=== PATIENT | female | born 1965 | race Caucasian/White ===

== ENCOUNTER 2017-12-03 11:34 | Observation (INO) | payer MEDICARE, MEDICAID, SELFPAY ==
[2017-12-03] VITALS (10 sets, daily range): BP systolic 104–118; BP diastolic 44–69; PULSE 70–81; RESP 14–20; TEMP 36.8–36.9; O2SAT 95–99; BMI 40.5
--- NOTE | 2017-12-03 11:58 | EKG12_ITS ---
Test Reason : CP Blood Pressure : / mmHG Vent. Rate : 078 BPM Atrial Rate : 078 BPM P-R Int : 156 ms QRS Dur : 078 ms QT Int : 374 ms P-R-T Axes : 045 -12 -07 degrees QTc Int : 426 ms Normal sinus rhythm Low voltage QRS Borderline ECG Confirmed by NOEMÍ BURGOS, HILARIO ([id number]), non linear editor CLIFF TRUONG ([id number]) on 12/07/2017 2:01:36 PM Referred By: JANET Confirmed By:HILARIO DOWD MD
--- NOTE | 2017-12-03 11:58 | RAD_ITS ---
STUDY: X-RAY CHEST REASON FOR EXAM: Female, 52 years old. Chest pain TECHNIQUE: Single AP portable view of the chest. COMPARISON: None. FINDINGS: Cardiac monitoring leads overlie the chest. The lungs are clear and expanded. There is no demonstrated pleural abnormality. Normal size heart. Normal mediastinum and shelia. Normal visualized pulmonary arteries. Normal visualized aortic arch and descending thoracic aorta. Normal visualized thoracic spine. Normal visualized ribs, clavicles, and shoulders. There is no demonstrated abnormality of the visualized soft tissue structures of the upper abdomen. RAD/Chest 1 View (Portable) IMPRESSION: Normal x-ray examination of the chest. Electronically Signed: Adi Barksdale DO at 12:33 EDT Tel , Service support ,
[2017-12-03] MEDS: 0.9% Normal Saline 1,000 ML 150 ML IV (12:25)
[2017-12-03 12:27] LABS: Absolute Lymphocyte Count 1.25 X10^3/ul (0.83-4.51); Absolute Neutrophil Count 5.7 X10^3/uL (2.0-7.7); Basophil# 0.06 X10^3/uL; Basophil% 0.8 % (0-1); Eosinophil# 0.22 X10^3/uL; Eosinophils% 2.8 % (0-5); Hematocrit 37.3 % (37-47); Hemoglobin 12.8 g/dl (12.0-15.0); Lymphocyte # 1.25 X10^3/ul (4.0); Lymphocyte % 16.1 % (19-41); Mean Corp Hgb Conc 34.3 g/gl (32-36); Mean Corpuscular Hgb 32.4 pg (27.0-32.0); Mean Corpuscular Volume 94.4 fL (81-99); Mean Platelet Vol. 10.1 fl (6.2-12.0); Monocyte# 0.51 X10^3/uL; Monocyte% 6.6 % (0-10); Neutrophil # 5.71 X10^3/uL (2.7-7.7); Neutrophil % 73.6 % (47-70); Platelet Count 246 K/mm3 (150-450); RBC Distribution Width CV 12.5 % (11.6-14.6); RBC Distribution Width SD 42.1 fl (35.1-43.9); Red Blood Count 3.95 M/mm3 (4.2-5.4); White Blood Count 7.8 K/mm3 (4.4-11.0)
[2017-12-03 12:30] LABS: POSITIVE COUNT NO; POSITIVE DIFFERENTIAL NO; POSITIVE MORPHOLOGY NO
[2017-12-03 12:41] LABS: Anion Gap 5 (5-15); BUN 13 mg/dL (7-18); BUN/Creat Ratio 12.6 RATIO (10-20); Chloride 104 mmol/L (98-107); Creatinine, Serum 1.03 mg/dL (0.55-1.02); EST Glomerular Filtration Rate 59 mL/min (>60); Est Glom Filt Rate - Afr Amer 72 mL/min (>60); Estimated Creatinine Clearance 47.66 ml/min; Glucose 108 mg/dL (74-106); Potassium 3.9 mmol/L (3.5-5.1); Sodium Level 139 mmol/L (136-145)
--- NOTE | 2017-12-03 13:33 | ED.VISSUMM ---
- ER Visit Summary Date of Service: 12/03/17 Chief Complaint: [Chest pain] History of Present Illness: The patient is a 52 F [presents the emergency department complaint of chest pain that started this morning when she woke up. Patient states that she had a tightness in the squeezing in her left chest. Patient also describes some burning sensation in her esophagus. Patient states that she felt disoriented at times. Patient can find any thing that she could do to ease the pain and she tried drinking milk which did not seem to help too much. Patient denies any radiation of the pain. She denies any shortness of breath or nausea or vomiting. Patient is never had pain quite like this before. She does have a history of hypercholesterolemia. Patient denies recent travel or surgery.] Currently patient states her pain is resolved. Patient states the pain had been somewhat intermittent and last several seconds at a time. Physical Examination: [HEENT-PERRLA, EOMI. Cranial nerves II through XII grossly intact. TMs clear. Mucous membranes moist. No adenopathy. Cardiovascular-regular rate and rhythm without murmur or ectopy Lungs-clear to auscultation, chest wall stable without crepitus or subcu emphysema Abdomen-normoactive bowel sounds, soft, nontender, no rebound or rigidity, no peritoneal signs. Extremities-intact ?4, normal range of motion, normal pulses, atraumatic] Test Results: [EKG obtained on arrival shows sinus rhythm with a ventricular rate of 78 bpm with no acute ST segment changes. CBC with differential obtained showed a white count 7.8, hemoglobin 12.8, hematocrit 37, platelets 246. Chemistries unremarkable. Troponin was less than 0.015. Chest x-ray was normal.] Emergency Department Course and Treatment: Patient received aspirin via EMS. Patient requested something for heartburn and was given a GI cocktail.] Treatment Plan: [Admit for further workup and evaluation of her chest pain] Disposition: [Admit] Impression: [Chest pain-etiology uncertain-rule out acute coronary syndrome] This note was generated with [employer] software. It may contain incorrect words, spelling, and punctuation that were not noted in review of the chart prior to signing ED Disposition - Plan for ED Patient: Chief Complaint: Chest Pain Referrals: Ethan Galvin MD [Primary Care Provider] -
--- NOTE | 2017-12-03 14:04 | HP.PCM_ITS ---
Problem List (1) Hyperlipidemia Status: Chronic (2) GERD (gastroesophageal reflux disease) Status: Chronic (3) Lupus erythematosus Status: Chronic (4) Schizophrenia Status: Chronic (5) Depression Status: Chronic History of Present Illness Date of Admission: 12/03/17 Chief Complaint: Chest pain. The patient is a 52 year old F with past medical history as mentioned above presented to the emergency room because of chest pain. Her symptoms started this morning after she woke up from sleep with retrosternal chest pain, described as squeezing pain, 8 out of 10 in severity, extends to the epigastric region and also to the left side of her chest, associated with burning sensation in the epigastric region as well as nausea, somewhat relieved by nitroglycerin as well as GI cocktail that she received in the ER and without aggravating factors. She does have history of GERD and she mentioned that she had upper endoscopy sometime in the past that revealed the diagnosis. In the emergency department, her vital signs were stable. Routine blood work was unremarkable. Her EKG revealed normal sinus rhythm without evidence of acute ischemic changes. Troponin is negative. Chest x-ray showed no acute findings. She is being admitted for chest pain for evaluation. Past Medical History Past Medical History (Chronic Problems): Chronic Problems Hyperlipidemia (Chronic) GERD (gastroesophageal reflux disease) (Chronic) Lupus erythematosus (Chronic) Schizophrenia (Chronic) Depression (Chronic) Allergies erythromycin base [Erythromycin Base] Allergy (Verified 12/03/17 11:36) Anaphylaxis nitrofurantoin macrocrystalline [From Macrodantin] Allergy (Verified 12/03/17 11 :36) Anaphylaxis Penicillins Allergy (Verified 12/03/17 11:36) Anaphylaxis codeine Adverse Reaction (Verified 12/03/17 11:36) Unknown metronidazole [From Flagyl] Adverse Reaction (Verified 12/03/17 11:36) Other Metronidazole HCl [From Flagyl] Adverse Reaction (Verified 12/03/17 11:36) Other morphine Adverse Reaction (Verified 12/03/17 11:36) Unknown Sulfa (Sulfonamide Antibiotics) Adverse Reaction (Verified 12/03/17 11:36) Unknown Home Medications: Ambulatory Orders Medication Instructions Recorded Hydroxychloroquine [Plaquenil] 300 mg PO DAILY 04/30/13 Benztropine Mesylate 0.5 mg PO BID 12/03/17 Cevimeline HCl [Cevimeline HCl] 30 mg PO TID 12/03/17 Cholecalciferol (VIT D3) [Vitamin 1,000 unit PO DAILY 12/03/17 D] Clonazepam [Klonopin] 0.25 mg PO BID 12/03/17 Docusate Sodium [Stool Softener] 100 mg PO DAILY 12/03/17 Fluoxetine HCl [Fluoxetine HCl] 40 mg PO DAILY 12/03/17 Folic Acid 1 mg PO DAILY 12/03/17 Haloperidol [Haldol] 5 mg PO QHS 12/03/17 Haloperidol [Haloperidol] 1 mg PO QHS 12/03/17 Lurasidone HCl [Latuda] 60 mg PO QHS 12/03/17 Methotrexate [Methotrexate] 15 mg PO QWEEK 12/03/17 Pantoprazole Sodium [Protonix] 40 mg PO DAILY 12/03/17 Pravastatin Sodium [Pravachol] 10 mg PO QHS 12/03/17 Surgical History: noncontributory Psychiatric History: Depression, Schizophrenia Lives: With Family Smoking Status: Former smoker Alcohol: None Drugs: None - *Family History Maternal History Items: Heart Disease, - Paternal History Items: Cancer, - - Rheumatoid arthritis. Review of Systems Constitutional: Denies: Anorexia, Chills, Fever, Weakness Eyes: Denies: Blurred vision, Double vision, Drainage, Redness HEENT: Denies: Difficulty Hearing, Ear Pain, Eye Pain, Nasal Congestion, Sore Throat Cardiovascular: Reports: Chest Pain, Chest Tightness. Denies: Heaviness, Light Headedness, Palpitations, Paroxysmal Noc. Dyspnea, Syncope Respiratory: Denies: Cough, Hemoptysis, Pleuritic Pain, Shortness of Breath, Sputum production, Wheezing Gastrointestinal: Reports: Dyspepsia, Nausea. Denies: Abdominal Pain, Constipation, Diarrhea, Vomiting Genitourinary: Denies: Dysuria, Frequency, Hematuria Musculoskeletal: Denies: Arm Pain, Back Pain, Foot Pain Skin: Denies: Dryness, Rash Neurological: Denies: Balance problems, Blurred vision, Double vision, Change in Speech, Slurred speech, Focal weakness, Headaches, Incoordination Psychiatric: Reports: Depression. Denies: Anxiety Endocrine: Denies: Change in Body Habitus, Polydipsia VTE Information - Inpt Only VTE Present on Admission: No VTE Mechan Device Prophylaxis: None VTE Pharm Prophylaxis ordered?: Yes - Physical Exam General: Alert, Oriented x3, Cooperative, No apparent distress HEENT: Atraumatic, PERRLA, EOMI, Normocephalic Oral: Moist Mucosa, No Gingival or Mucosal Lesions/ Ulcerations Neck: Supple, No JVD, Negative Carotid Bruits, Trachea Midline, Thyroid Normal Size and Texture Lungs: Clear to auscultation, No rhonchi, No wheeze, No rales, Diminished Cardiovascular: Regular rate, Regular Rhythm, Normal S1, Normal S2, No murmurs Abdomen: Bowel Sounds Present, Soft, Non Tender, Non-Distended, No Hepato- splenomegaly Extremities: No clubbing, No cyanosis, No edema Skin: No rashes, No breakdown Lymphatic: No Cervical, Supraclavicular, or Inguinal Adenopathy Neurological: Cranial nerves II-XII grossly intact, Motor Exam 5/5 strength throughout Psych/Mental Status: Normal Affect, Appropriate, Alert and oriented to time, place, person, mood and affect Vital Signs Temp Pulse Resp BP Pulse Ox 98.3 F 74 20 H 118/51 L 97 12/03/17 11:37 12/03/17 13:56 12/03/17 13:56 12/03/17 13:56 12/03/17 13:56 Laboratory Tests 3 12/03/17 12/03/17 Range/Units 12:10 12:10 WBC 7.8 (4.4-11.0) K/mm3 RBC 3.95 L (4.2-5.4) M/mm3 Hgb 12.8 (12.0-15.0) g/dl Hct 37.3 (37-47) % MCV 94.4 (81-99) fL MCH 32.4 H (27.0-32.0) pg MCHC 34.3 (32-36) g/gl RDW 12.5 (11.6-14.6) % RDW Differential 42.1 (35.1-43.9) fl Plt Count 246 (150-450) K/mm3 MPV 10.1 (6.2-12.0) fl Immature Gran % (Auto) 0.100 (0.0-0.9) % Neut % (Auto) 73.6 H (47-70) % Lymph % (Auto) 16.1 L (19-41) % Kemper % (Auto) 6.6 (0-10) % Eos % (Auto) 2.8 (0-5) % Baso % (Auto) 0.8 (0-1) % Absolute Neuts (auto) 5.7 (2.0-7.7) X10^3/uL Absolute Lymphs (auto) 1.25 (0.83-4.51) X10^3/ul Total Counted Not Reportable Sodium 139 (136-145) mmol/L Potassium 3.9 (3.5-5.1) mmol/L Chloride 104 (98-107) mmol/L Carbon Dioxide 30.0 (21.0-32.0) mmol/L Anion Gap 5 (5-15) BUN 13 (7-18) mg/dL Creatinine 1.03 H (0.55-1.02) mg/dL Estim Creat Clear Calc 47.66 ml/min Est GFR (MDRD) Af Amer 72 (>60) mL/min Est GFR (MDRD) Non-Af 59 L (>60) mL/min BUN/Creatinine Ratio 12.6 (10-20) RATIO Glucose 108 H (74-106) mg/dL Calcium 9.0 (8.5-10.1) mg/dL Troponin I < 0.015 (<0.045) ng/mL Clinical Impression(s) from Imaging Studies Chest X-Ray 12/03/17 11:58 IMPRESSION: Normal x-ray examination of the chest. Electronically Signed: Adi Barksdale DO at 12:33 EDT Tel , Service support , Assessment/Plan This is a 52 years old female patient presented to the emergency room because of chest pain and she is being admitted for evaluation. #1 chest pain: Risk factors on the age and hyperlipidemia. EKG revealed no acute ischemic changes. Troponin is negative. Chest x-ray showed no acute findings. Her symptoms could be due to GERD. She had significant history of GERD, had upper EGD in the past. Plan: Admit to PCU for observation, cardiac monitoring, serial cardiac enzymes, repeat EKG tomorrow morning, nuclear stress test tomorrow if cardiac enzymes are negative, Protonix twice daily, Mylanta as needed, nitroglycerin as needed, IV fluids. #2 lupus erythematosus: Stable, no acute distress. Continue Plaquenil and methotrexate #3 GERD: Start Protonix twice daily, Mylanta as needed as above. #4 hyperlipidemia: Continue statins. #5 depression/schizophrenia: Continue Klonopin, fluoxetine and haloperidol. #6 DVT prophylaxis: Subcu Lovenox. This note was generated with [employer] software. It may contain incorrect words, spelling, and punctuation that were not noted in checking the note before signing. Code Visit OBSV E&M: 37865 Initial observation care L3
--- NOTE | 2017-12-03 15:50 | CM.ED ---
Patient states her CPAP mask is torn and that she needs a new filter, as her current filter is black. Her significant other, Garland, is at bedside. He tells me the patient has had difficulty with [employer] [employer] [facility] [place]. Call placed to [facility]. Monica informed me that the problems have been resolved and the patient is approved for new mask and filter. She requested that the patient contact them for delivery setup. I did provide Monica with patient's [facility] subscriber number, as this was not in their records. Patient and family updated and will contact [employer] for delivery.
[2017-12-03] MEDS: Pantoprazole Sodium 40 MG Tablet PO ×2 (17:07→22:12)
[2017-12-03] MEDS: Hydroxychloroquine 200 MG Tablet PO (17:07)
[2017-12-03] MEDS: Enoxaparin 40 MG/0.4 ML Syringe SC (17:07)
[2017-12-03] MEDS: 0.9% Normal Saline 1,000 ML 100 ML IV (17:22)
[2017-12-03] MEDS: clonazePAM 0.5 MG Tablet PO (22:12)
[2017-12-03] MEDS: Pravastatin 20 MG Tablet 10 MG PO (22:12)
[2017-12-03] MEDS: Benztropine 2 MG Tablet 0.5 MG PO (22:12)
[2017-12-03] MEDS: Haloperidol 1 MG Tablet 4 MG PO (22:12)
[2017-12-04] VITALS (8 sets, daily range): BP systolic 108–127; BP diastolic 45–62; PULSE 66–83; RESP 16–18; TEMP 36.6–37.1; O2SAT 94–98
[2017-12-04] MEDS: Acetaminophen 325 MG Tablet 650 MG PO (02:25)
[2017-12-04] MEDS: Aspirin 81 MG TAB.CHEW PO (05:50)
--- NOTE | 2017-12-04 05:55 | EKG12_ITS ---
Test Reason : AM EKG Blood Pressure : / mmHG Vent. Rate : 076 BPM Atrial Rate : 076 BPM P-R Int : 174 ms QRS Dur : 068 ms QT Int : 390 ms P-R-T Axes : 049 -03 -14 degrees QTc Int : 438 ms Normal sinus rhythm Low voltage QRS Borderline ECG Confirmed by NOEMÍ BURGOS, HILARIO ([id number]), sound editor CLIFF TRUONG ([id number]) on 12/07/2017 3:43:00 PM Referred By: TREVA Confirmed By:HILAROI DOWD MD
[2017-12-04 06:24] LABS: Absolute Lymphocyte Count 2.28 X10^3/ul (0.83-4.51); Absolute Neutrophil Count 3.3 X10^3/uL (2.0-7.7); Basophil# 0.05 X10^3/uL; Basophil% 0.8 % (0-1); Eosinophil# 0.31 X10^3/uL; Eosinophils% 4.8 % (0-5); Hematocrit 36.3 % (37-47); Hemoglobin 12.3 g/dl (12.0-15.0); Lymphocyte # 2.28 X10^3/ul (4.0); Lymphocyte % 35.6 % (19-41); Mean Corp Hgb Conc 33.9 g/gl (32-36); Mean Corpuscular Hgb 32.2 pg (27.0-32.0); Monocyte# 0.45 X10^3/uL; Neutrophil # 3.31 X10^3/uL (2.7-7.7); Neutrophil % 51.6 % (47-70); Platelet Count 223 K/mm3 (150-450); RBC Distribution Width CV 12.5 % (11.6-14.6); RBC Distribution Width SD 41.9 fl (35.1-43.9); Red Blood Count 3.82 M/mm3 (4.2-5.4); White Blood Count 6.4 K/mm3 (4.4-11.0)
[2017-12-04 06:25] LABS: POSITIVE COUNT NO; POSITIVE DIFFERENTIAL NO; POSITIVE MORPHOLOGY NO
[2017-12-04 06:26] LABS: International Normalized Ratio 1.1; Partial Thromboplast Time 28.6 Seconds (24.1-36.2); Prothrombin Time (Protime)PT. 13.8 SECONDS (11.7-14.9)
[2017-12-04 06:42] LABS: Anion Gap 8 (5-15); BUN 14 mg/dL (7-18); BUN/Creat Ratio 14.5 RATIO (10-20); Chloride 104 mmol/L (98-107); Cholesterol 158 mg/dL (200); Creatinine, Serum 0.96 mg/dL (0.55-1.02); EST Glomerular Filtration Rate 64 mL/min (>60); Est Glom Filt Rate - Afr Amer 78 mL/min (>60); Estimated Creatinine Clearance 51.14 ml/min; Glucose 102 mg/dL (74-106); High Density Lipoprotein 34 mg/dL; Potassium 4.3 mmol/L (3.5-5.1); Sodium Level 142 mmol/L (136-145); Triglycerides 160 mg/dL; Very Low Density Lipoprotein 32 mg/dL (5-40)
--- NOTE | 2017-12-04 12:11 | STRESSREP_ITS ---
Stress Test Report Date: 12/04/2017 Procedure: Exercise tolerance test/imaging study Indications: Chest pain Consent: Per the patient Procedure: The patient exercised on a Cole protocol for 4 minutes and 30 seconds completing Stage I and 1 minute 30 seconds of Stage II achieving a peak heart rate of 150 bpm (89 % predicted maximal heart rate) with a peak blood pressure 152/86 mmHg and a peak MET capacity of 6 METs. The baseline ECG demonstrated normal sinus rhythm. The peak exercise ECG demonstrated somatic/motion artifact with no obvious ECG changes. There were no cardiac dysrhythmias pretest, during exercise, or recovery. The functional capacity was considered decreased. There was no complaint of chest discomfort during exercise or recovery. The examination was discontinued secondary to dyspnea. Impression: 1. Technically adequate (percent predicted maximal heart rate greater than 85% ) exercise tolerance test 2. Peak exercise ECG somatic/motion artifact with no obvious ECG changes 3. There were no cardiac dysrhythmias pretest, during exercise, or recovery. 4. Nuclear images pending Myocardial perfusion imaging study: Technique: The patient was injected with 13.5 mCi of technetium 99m Cardiolite and subsequently rest SPECT Cardiolite nuclear imaging was obtained in the horizontal long, vertical long, and short axis views. The patient exercised on a Cole protocol for 4 minutes and 30 seconds completing Stage I and 1 minute 30 seconds of Stage II achieving a peak heart rate of 150 bpm (89 % predicted maximal heart rate) with a peak blood pressure 152/86 mmHg and a peak MET capacity of 6 METs. The patient was injected with 42 mCi of technetium 99m Cardiolite and subsequently stress SPECT Cardiolite nuclear imaging was obtained in the horizontal long, vertical long, and short axis views. A gated Cardiolite study at peak stress was obtained. Interpretation: Rest and stress SPECT Cardiolite nuclear imaging status post realignment, normalization, and attenuation correction, demonstrates the appearance of relative uniform tracer uptake and myocardial perfusion appearing within normal limits. There is end systolic thickening and brightening. The gated Cardiolite study demonstrates myocardial thickening and inward wall motion. The reported LVEF is 93 %. Impression: 1. Rest and stress SPECT Cardiolite nuclear imaging demonstrate relative uniform tracer uptake and myocardial perfusion appearing within normal limits. 2. The gated Cardiolite study reports an LVEF of 93 %. This note was generated with [employer] software. It may contain incorrect words, spelling, and punctuation that were not noted in checking the note before signing.
--- NOTE | 2017-12-04 12:34 | PCM.DC ---
- Discharge Diagnoses Current Active Problems: Current Active and Chronic Problems Hyperlipidemia (Chronic) GERD (gastroesophageal reflux disease) (Chronic) Lupus erythematosus (Chronic) Schizophrenia (Chronic) Depression (Chronic) You will use the following diet at home:: No restrictions Your food should be the consistency of: Regular Discharge Activity: Return to Normal Activity Allergies/Adverse Reactions: Allergies erythromycin base [Erythromycin Base] Allergy (Verified 12/03/17 11:36) Anaphylaxis nitrofurantoin macrocrystalline [From Macrodantin] Allergy (Verified 12/03/17 11:36) Anaphylaxis Penicillins Allergy (Verified 12/03/17 11:36) Anaphylaxis codeine Adverse Reaction (Verified 12/03/17 11:36) Unknown metronidazole [From Flagyl] Adverse Reaction (Verified 12/03/17 11:36) Other Metronidazole HCl [From Flagyl] Adverse Reaction (Verified 12/03/17 11:36) Other morphine Adverse Reaction (Verified 12/03/17 11:36) Unknown Sulfa (Sulfonamide Antibiotics) Adverse Reaction (Verified 12/03/17 11:36) Unknown Medications to take at Discharge Hydroxychloroquine [Plaquenil] 300 mg PO DAILY 04/30/13 Benztropine Mesylate 0.5 mg PO BID 12/03/17 Cevimeline HCl 30 mg PO TID 12/03/17 Cholecalciferol (VIT D3) [Vitamin D3] 1,000 unit PO DAILY 12/03/17 Clonazepam [Klonopin] 0.25 mg PO BID 12/03/17 Docusate Sodium [Stool Softener] 100 mg PO DAILY 12/03/17 Fluoxetine HCl 40 mg PO DAILY 12/03/17 Folic Acid 1 mg PO DAILY 12/03/17 Haloperidol 1 mg PO QHS 12/03/17 Haloperidol [Haldol] 5 mg PO QHS 12/03/17 Lurasidone HCl [Latuda] 60 mg PO QHS 12/03/17 Methotrexate 15 mg PO QWEEK 12/03/17 Pantoprazole Sodium [Protonix] 40 mg PO DAILY 12/03/17 Pravastatin Sodium [Pravachol] 10 mg PO QHS 12/03/17 Primary Care Physician: Ethan Galvin MD [Primary Care Provider] - Test Results: Test results from this visit will be discussed in further detail at your follow-up appointment, if applicable. Proposed Discharge Date: 12/04/17
--- NOTE | 2017-12-04 12:38 | DCINST_ITS ---
- Discharge Diagnoses Current Active Problems: Current Active and Chronic Problems Hyperlipidemia (Chronic) GERD (gastroesophageal reflux disease) (Chronic) Lupus erythematosus (Chronic) Schizophrenia (Chronic) Depression (Chronic) You will use the following diet at home:: No restrictions Your food should be the consistency of: Regular Discharge Activity: Return to Normal Activity Allergies/Adverse Reactions: Allergies erythromycin base [Erythromycin Base] Allergy (Verified 12/03/17 11:36) Anaphylaxis nitrofurantoin macrocrystalline [From Macrodantin] Allergy (Verified 12/03/17 11 :36) Anaphylaxis Penicillins Allergy (Verified 12/03/17 11:36) Anaphylaxis codeine Adverse Reaction (Verified 12/03/17 11:36) Unknown metronidazole [From Flagyl] Adverse Reaction (Verified 12/03/17 11:36) Other Metronidazole HCl [From Flagyl] Adverse Reaction (Verified 12/03/17 11:36) Other morphine Adverse Reaction (Verified 12/03/17 11:36) Unknown Sulfa (Sulfonamide Antibiotics) Adverse Reaction (Verified 12/03/17 11:36) Unknown Medications to take at Discharge Hydroxychloroquine [Plaquenil] 300 mg PO DAILY 04/30/13 Benztropine Mesylate 0.5 mg PO BID 12/03/17 Cevimeline HCl 30 mg PO TID 12/03/17 Cholecalciferol (VIT D3) [Vitamin D3] 1,000 unit PO DAILY 12/03/17 Clonazepam [Klonopin] 0.25 mg PO BID 12/03/17 Docusate Sodium [Stool Softener] 100 mg PO DAILY 12/03/17 Fluoxetine HCl 40 mg PO DAILY 12/03/17 Folic Acid 1 mg PO DAILY 12/03/17 Haloperidol 1 mg PO QHS 12/03/17 Haloperidol [Haldol] 5 mg PO QHS 12/03/17 Lurasidone HCl [Latuda] 60 mg PO QHS 12/03/17 Methotrexate 15 mg PO QWEEK 12/03/17 Pantoprazole Sodium [Protonix] 40 mg PO DAILY 12/03/17 Pravastatin Sodium [Pravachol] 10 mg PO QHS 12/03/17 Primary Care Physician: Ethan Galvin MD [Primary Care Provider] - Test Results: Test results from this visit will be discussed in further detail at your follow- up appointment, if applicable. Proposed Discharge Date: 12/04/17
--- NOTE | 2017-12-04 12:39 | PCM.DC.SUM ---
Discharge Date and Diagnosis - Problem List Patient Problems: Active and Suspected Problems Acute chest pain (Acute) Date of Admission: 12/03/17 Date of Discharge: 12/04/17 - Primary Discharge Diagnosis Active and Suspected Problems Acute chest pain (Acute) - Secondary Discharge Diagnosis Chronic Problems Hyperlipidemia (Chronic) GERD (gastroesophageal reflux disease) (Chronic) Lupus erythematosus (Chronic) Schizophrenia (Chronic) Depression (Chronic) Hospital Course and Treatment Imaging Results: 12/04/17 05:55 Nuclear Stress Test - Tread[facility] [NM] Routine Summary of Care Provided: The patient is a 52 year old F who presented with chest pain. Patient was placed on a monitored bed [place] was ruled out with serial cardiac enzymes. Patient subsequently underwent a nuclear stress test which was negative for stress-induced ischemia. Patient was discharged home instructed to follow-up with the primary care physician for noncardiac workup of her chest discomfort. Discharge Activity: Return to Normal Activity Home Medications: Medications to take at Discharge Hydroxychloroquine [Plaquenil] 300 mg PO DAILY 04/30/13 Benztropine Mesylate 0.5 mg PO BID 12/03/17 Cevimeline HCl 30 mg PO TID 12/03/17 Cholecalciferol (VIT D3) [Vitamin D3] 1,000 unit PO DAILY 12/03/17 Clonazepam [Klonopin] 0.25 mg PO BID 12/03/17 Docusate Sodium [Stool Softener] 100 mg PO DAILY 12/03/17 Fluoxetine HCl 40 mg PO DAILY 12/03/17 Folic Acid 1 mg PO DAILY 12/03/17 Haloperidol 1 mg PO QHS 12/03/17 Haloperidol [Haldol] 5 mg PO QHS 12/03/17 Lurasidone HCl [Latuda] 60 mg PO QHS 12/03/17 Methotrexate 15 mg PO QWEEK 12/03/17 Pantoprazole Sodium [Protonix] 40 mg PO DAILY 12/03/17 Pravastatin Sodium [Pravachol] 10 mg PO QHS 12/03/17 Primary Care Physician: Ethan Galvin MD [Primary Care Provider] - Medical Necessity - Tobacco Use Smoking Status: Former smoker Tobacco Use: Cigarettes Meaningful Use Info Meaningful Use Diagnoses (Choose all that apply): None applicable Code Visit OBSV E&M: 79931 Observation care discharge
--- NOTE | 2017-12-04 12:44 | DS.PCM_ITS ---
Discharge Date and Diagnosis - Problem List Patient Problems: Active and Suspected Problems Acute chest pain (Acute) Date of Admission: 12/03/17 Date of Discharge: 12/04/17 - Primary Discharge Diagnosis Active and Suspected Problems Acute chest pain (Acute) - Secondary Discharge Diagnosis Chronic Problems Hyperlipidemia (Chronic) GERD (gastroesophageal reflux disease) (Chronic) Lupus erythematosus (Chronic) Schizophrenia (Chronic) Depression (Chronic) Hospital Course and Treatment Imaging Results: 12/04/17 05:55 Nuclear Stress Test - Treadmil [NM] Routine Summary of Care Provided: The patient is a 52 year old F who presented with chest pain. Patient was placed on a monitored bed [place] was ruled out with serial cardiac enzymes. Patient subsequently underwent a nuclear stress test which was negative for stress-induced ischemia. Patient was discharged home instructed to follow-up with the primary care physician for noncardiac workup of her chest discomfort. Discharge Activity: Return to Normal Activity Home Medications: Medications to take at Discharge Hydroxychloroquine [Plaquenil] 300 mg PO DAILY 04/30/13 Benztropine Mesylate 0.5 mg PO BID 12/03/17 Cevimeline HCl 30 mg PO TID 12/03/17 Cholecalciferol (VIT D3) [Vitamin D3] 1,000 unit PO DAILY 12/03/17 Clonazepam [Klonopin] 0.25 mg PO BID 12/03/17 Docusate Sodium [Stool Softener] 100 mg PO DAILY 12/03/17 Fluoxetine HCl 40 mg PO DAILY 12/03/17 Folic Acid 1 mg PO DAILY 12/03/17 Haloperidol 1 mg PO QHS 12/03/17 Haloperidol [Haldol] 5 mg PO QHS 12/03/17 Lurasidone HCl [Latuda] 60 mg PO QHS 12/03/17 Methotrexate 15 mg PO QWEEK 12/03/17 Pantoprazole Sodium [Protonix] 40 mg PO DAILY 12/03/17 Pravastatin Sodium [Pravachol] 10 mg PO QHS 12/03/17 Primary Care Physician: Ethan Galvin MD [Primary Care Provider] - Medical Necessity - Tobacco Use Smoking Status: Former smoker Tobacco Use: Cigarettes Meaningful Use Info Meaningful Use Diagnoses (Choose all that apply): None applicable Code Visit OBSV E&M: 84680 Observation care discharge
[2017-12-04] MEDS: Pantoprazole Sodium 40 MG Tablet PO (13:11)
[2017-12-04] MEDS: FLUoxetine 20 MG Capsule 40 MG PO (13:11)
[2017-12-04] MEDS: Docusate Sodium 100 MG Capsule PO (13:12)
[2017-12-04] MEDS: Hydroxychloroquine 200 MG Tablet PO (13:12)
[2017-12-04] MEDS: Benztropine 2 MG Tablet 0.5 MG PO (13:12)
[2017-12-04] MEDS: clonazePAM 0.5 MG Tablet PO (13:17)
== END 2017-12-04 12:35 | disposition home or self-care (01) ==
LOC: ED 12:57 → PCU 13:56
PROVIDERS: Admitting Provider Hospitalist; Emergency Provider Emergency Medicine; Family Provider Internal Medicine; PCP Internal Medicine; Visit Provider Internal Medicine
DX: R07.89 Other chest pain (principal); E78.5 Hyperlipidemia, unspecified; K21.9 Gastro-esophageal reflux disease without esophagitis; Z79.899 Other long term (current) drug therapy; F20.9 Schizophrenia, unspecified; Z87.891 Personal history of nicotine dependence; L93.0 Discoid lupus erythematosus
CPT/HCPCS: 36415; 71045; 78452; 80048; 80061; 84484; 85025; 85610; 85730; 93005; 93017; 96360; 96361; 96372; 99218; 99285; A9500; J7030; A4216; G0378; J2785

== ENCOUNTER 2018-06-19 13:39 | Emergency (ER) | payer MEDICARE, MEDICAID, SELFPAY ==
[2018-06-19 13:40] VITALS: BP 104/91; PULSE 75; RESP 18; TEMP 36.6; O2SAT 96; BMI 43.4
--- NOTE | 2018-06-19 14:01 | ED.VISSUMM ---
- ER Visit Summary Date of Service: 06/19/18 Chief Complaint: [Laceration left long finger] History of Present Illness: The patient is a 53 F [presents to the emergency department after sustaining a laceration 45 minutes ago to her left long finger. Patient states that she was cutting a potato with a mandolin slicer when she accidentally cut her finger. Patient is left-hand dominant. Patient at the on tetanus. Patient states that she ran the finger under cold water but had a hard time stopping the bleeding.] Physical Examination: [HEENT-PERRLA, EOMI. Cranial nerves II through XII grossly intact. TMs clear. Mucous membranes moist. No adenopathy. Cardiovascular-regular rate and rhythm without murmur or ectopy Lungs-clear to auscultation, chest wall stable without crepitus or subcu emphysema Abdomen-normoactive bowel sounds, soft, nontender, no rebound or rigidity, no peritoneal signs. Extremities-intact ?4, normal range of motion, normal pulses, atraumatic. Left long finger-patient has a 1 cm horizontal laceration across the pad of the digit with no active bleeding currently. She is neurovascular intact. Normal sensation.] Test Results: [None indicated] Emergency Department Course and Treatment: I had a discussion with patient regarding treatment options including Steri-Strips versus suturing. Given the small nature of the laceration I felt both options were reasonable. Patient opted not to have the finger sutured but rather do the Steri-Strips which I think is a reasonable option. Patient to follow-up with primary care physician in 3-5 days for wound check.] Treatment Plan: [Follow-up for wound check in 3-5 days.] Disposition: [Discharged home in stable condition] Impression: [Laceration left long finger with Steri-Strip repair] This note was generated with [employer] software. It may contain incorrect words, spelling, and punctuation that were not noted in review of the chart prior to signing ED Disposition - Plan for ED Patient: Referrals: Ethan Galvin MD [Primary Care Provider] -
--- NOTE | 2018-06-19 14:03 | ED.DEP ---
ED Disposition - Plan for ED Patient: Instructions: ED Laceration Ext Sutr Stap Tape Referrals: Ethan Galvin MD [Primary Care Provider] - 3-5 Days
== END 2018-06-19 14:28 | disposition home or self-care (01) ==
LOC: ED 14:25
PROVIDERS: Emergency Provider Emergency Medicine; Family Provider Internal Medicine; PCP Internal Medicine
DX: S61.213A Laceration without foreign body of left middle finger without damage to nail, initial encounter (principal); W26.8XXA Contact with other sharp object(s), not elsewhere classified, initial encounter; Y93.89 Activity, other specified; Y92.9 Unspecified place or not applicable; F20.9 Schizophrenia, unspecified; M32.9 Systemic lupus erythematosus, unspecified; Z79.899 Other long term (current) drug therapy
CPT/HCPCS: 99282

== ENCOUNTER 2019-10-06 19:13 | Emergency (ER) | payer MEDICARE, MEDICAID, SELFPAY ==
[2019-10-06 19:14] VITALS: BP 109/59; PULSE 74; RESP 16; TEMP 36.2; O2SAT 96; BMI 40.6
--- NOTE | 2019-10-06 19:31 | ED.VIS.BACK ---
History of Present Illness Chief Complaint: Back Narrative: Patient presenting for evaluation secondary to back pain. Patient reports that since she has been quarantined at home, she has been doing a lot of work around the house including gardening and cleaning. She reports that that has been associated with some increased back pain. She reports that typically when she bends over she gets a burning type sensation in her back and her buttocks. Patient states however that today she noted that she was starting to get spasms in her back. These will come and go, are not necessarily associated with moving or position change, and are associated with some radiation of pain down her left thigh. Patient denies any bowel or bladder incontinence, she does typically have some mild issues with urine but she has a bladder sling and she states that it is unchanged. No fevers, no unintended weight loss. No recent injections or surgeries or history of IV drug abuse. Patient reports that she took some Tylenol with very minimal relief of her pain. Review of systems otherwise negative. Past Medical History - Allergies and Home Meds Allergies/Adverse Reactions: Allergies erythromycin base [Erythromycin Base] Allergy (Verified 10/06/19 19:16) Anaphylaxis nitrofurantoin macrocrystalline [From Macrodantin] Allergy (Verified 10/06/19 19:16) Anaphylaxis Penicillins Allergy (Verified 10/06/19 19:16) Anaphylaxis codeine Adverse Reaction (Verified 10/06/19 19:16) Unknown metronidazole [From Flagyl] Adverse Reaction (Verified 10/06/19 19:16) Other Metronidazole HCl [From Flagyl] Adverse Reaction (Verified 10/06/19 19:16) Other morphine Adverse Reaction (Verified 10/06/19 19:16) Unknown Sulfa (Sulfonamide Antibiotics) Adverse Reaction (Verified 10/06/19 19:16) Unknown Primary Care Physician: Ethan Galvin MD [Primary Care Provider] - Past Medical History: - - RA Surgical History: noncontributory Lives: Spouse/ Significant Other Smoking Status: Never smoker Alcohol: None Drugs: None - Family History Maternal Family History: Reports: Heart Disease, - Paternal Family History: Reports: Cancer, - - Rheumatoid arthritis. Review of Systems All systems negative except as indicated General: Denies: Chills, Fever, Sweats Eyes: Denies: Visual changes - bilaterally, Diplopia ENT: Denies: Rhinorrhea, Sore throat Cardiovascular: Denies: Chest pain, Palpitations Respiratory: Denies: Dyspnea, Cough, Dyspnea on exertion Gastrointestinal: Denies: Abdominal pain, Nausea, Vomiting, Diarrhea, Melena, Hematochezia Genitourinary: Denies: Dysuria, Hematuria, Frequency Musculoskeletal: Reports: Back pain Skin: Denies: Rash, Wounds Neurological: Denies: Headache, Weakness, Numbness Physical Exam Vital Signs/Narrative: Vital Signs Temp Pulse Resp BP Pulse Ox 10/06/19 19:14 97.2 F L 74 16 109/59 L 96 Inital Vital Signs reviewed: Yes General: Well nourished, Well developed, Obese Head: Normocephalic, Atraumatic Eyes: Perrl, EOMI ENT: Moist mucous membranes, No rhinorrhea Neck: Supple, Nontender Cardiovascular: Regular rate, Regular rhythm, No murmurs, - - 2+ radial pulses bilaterally symmetric. 2+ PT pulses bilaterally symmetric. Respiratory: No distress, CTA bilaterally, Chest nontender Abdomen: Soft, Nontender, Nondistended, Normal bowel sounds. Negative for: Pulsatile mass Back: Normal Inspection, Spinal tenderness - Diffuse lumbar tenderness to palpation, nonlocalizing, Paraspinal Tenderness, Negative SLR - Right, Negative SLR - Left Extremeties: - - 5 out of 5 strength of the hip knee ankle and foot with normal sensation over all dermatomes. 2+ patellar reflexes bilaterally symmetric, 1+ Achilles, negative clonus. Skin: Normal color, No rash Neuro: Alert, Oriented, Normal Strength, Normal Sensation, Normal DTR, Normal Gait Psychological: Normal affect Diagnostic/Tx/Re-eval - Medical Decision Making Patient presented secondary to back pain. She describes this as being intermittent with spasms and potentially an element of some sciatica. She has a reassuring physical exam there is no indication for imaging at this time. Patient is already on methotrexate and hydroxychloroquine for treatment of her rheumatoid arthritis. I believe it is reasonable to treat the patient with a short course of steroids, muscle relaxants, and a protracted course of tramadol for breakthrough pain. She was recommended stretching exercises and follow-up with primary care. ED Disposition - Plan for ED Patient: Disposition: Home or Assisted Living Diagnosis: Back spasm, Sciatica Instructions: ED Spasm Back No Trauma, ED LUMBAR RADICULOPATHY Prescriptions: Prednisone [Deltasone] 40 mg PO DAILY #10 tab Prescription Printed cycloBENZAPRine HCl [Flexeril] 10 mg PO TID PRN #20 tab PRN Reason: Muscle Spasm Prescription Printed traMADol [Ultram] 50 mg PO Q6H PRN PRN 3 Days #12 tab PRN Reason: Pain Prescription Printed Referrals: Ethan Galvin MD [Primary Care Provider] - 3-5 Days if not improving
[2019-10-06] MEDS: traMADol 50 MG Tablet PO (20:19)
[2019-10-06] MEDS: cycloBENZAPRine HCl 10 MG Tablet PO (20:19)
[2019-10-06] MEDS: predniSONE 20 MG Tablet 40 MG PO (20:19)
== END 2019-10-06 20:18 | disposition home or self-care (01) ==
LOC: ED 19:53
PROVIDERS: Emergency Provider Emergency Medicine; PCP Internal Medicine
DX: M62.830 Muscle spasm of back (principal); M54.40 Lumbago with sciatica, unspecified side; M06.9 Rheumatoid arthritis, unspecified; E66.9 Obesity, unspecified; Z68.41 Body mass index [BMI] 40.0-44.9, adult
CPT/HCPCS: 99283

== ENCOUNTER 2020-05-10 08:30 | Outpatient (RCR) | payer MEDICARE, MEDICAID, SELFPAY ==
--- NOTE | 2020-05-10 09:05 | BH.SGPN.GN ---
Behaviors/Verbalizations/Mental Status: [] Eye contact is good. Motor activity is appropriate. Appearance is casual. Speech is Appropriate. Mood is anxious. Affect is congruent. Thoughts are linear and logical. No evidence of psychosis. Client Response/Progress/Benefit: [] Pt spoke when prompted however appeared attentive. This was pt's first day in IOP and she shared a bit of her history stating that she was diagnosed with paranoid schizophrenia and has had a hx of suicide attempts. Shared that she has been struggling recent with intrusive thoughts and dwelling on the past. Group welcomed her to the program and offered some advice for the first day. Pt was receptive. No progress noted as this is pt's first day. Will continue in IOP to prevent decompensation, increase support, increase healthy coping skills, and decrease impact of intrusive thoughts. Narrative Note: []
--- NOTE | 2020-05-10 10:05 | BH.SGPN.GN ---
Behaviors/Verbalizations/Mental Status: []Client alert and oriented, casually dressed and groomed. Eye contact good. Motor activity appropriate. Speech within normal limits. Affect constricted, mood anxious. Thoughts linear, logical, no signs of hallucinations or delusions. Client Response/Progress/Benefit: []Client engaged during session AEB client contributing thoughts at times during discussion and completing worksheet. Connected with discussion on crisis and how coping with external crises by using unhealthy coping skills could result in a personal crisis. Group reflected on the importance of having awareness of personal warning signs in order to prevent reaching crisis point. Group identified potential warning signs for crisis and client completed the personal warning signs worksheet. Client identified personal crisis warning signs to include: problems with memory, difficulty concentrating, and loss of motivation. Client benefited by increasing awareness of what leads to crisis and personal warning signs. Pt's first day in IOP. Pt to continue IOP to increase healthy coping, improve daily functioning and prevent decompensation. Narrative Note: []
--- NOTE | 2020-05-10 11:05 | BH.SGPN.GN ---
Behaviors/Verbalizations/Mental Status: []Client alert and oriented, casually dressed and groomed. Eye contact fair. Motor activity appropriate. Speech within normal limits. Affect constricted. Mood anxious. Thoughts linear, logical, no signs of hallucinations or delusions. Client Response/Progress/Benefit: []Client responded well to discussion as evidenced by client listening attentively to others, however client struggled with creating a crisis prevention plan. Client was able to identify her warning signs for crisis and gained further awareness of earliest warning signs. Client stated she was having a hard time staying focused and concentrating. Client reported this has been a common issue for her which she stated impacts her ability to drive and complete other tasks. Client requested just observing for the crisis prevention worksheet and kits. Client appeared to benefit from listening to peers crisis action plans. First day in IOP. Client to continue IOP tx to increase healthy coping, improve daily functioning and prevent decompensation.
--- NOTE | 2020-05-14 10:10 | BH.SGPN.GN ---
Behaviors/Verbalizations/Mental Status: []Client alert and orient. Appearance casual and appropriately groomed. Speech within normal limits. Motor activity appropriate. Mood depressed, affect constricted. No evidence of delusion or hallucinations.? Client Response/Progress/Benefit: []Client responded well to session, attentive and listening to discussion. Group discussed potential barriers to communication including: yelling, name-calling, unmanaged emotions, facial expressions, and shutting down. Client did not contribute to the discussion, but she was often nodding while peers shared insight. Attentive during psychoeducation on the four communication styles as well as the payoffs and costs of each style. Progress noted in increased insight into personal communication styles and barriers. Client will continue IOP tx to prevent decompensation, improve mood stability, and improve daily functioning. Narrative Note: []
--- NOTE | 2020-05-14 11:15 | BH.SGPN.GN ---
Behaviors/Verbalizations/Mental Status: []Client alert and oriented, casually dressed and appropriately groomed. Eye contact good. Motor activity appropriate. Speech WNL. Affect constricted, mood dysthymic and anxious. Thoughts linear, logical, no signs of hallucinations or delusions. Client Response/Progress/Benefit: []Client mostly passive participant AEB pt only providing input when elicited by therapist, however listened attentively to peers. Attentive during psychoeducation on interpersonal DBT skill AMANDA and client selected a communication skill to practice. Client selected the skill of negotiating because she recognizes it's important to be able to compromise with others. Client seemed to benefit from increasing awareness of healthy strategies to improve communication. Will continue IOP tx to increase healthy coping, improve daily functioning and prevent decompensation. Narrative Note: []
--- NOTE | 2020-05-14 11:44 | BH.MDN ---
Multi-Disciplinary Note - Note 45-min Individual Time Started:: 09:30 Date: 05/14/20 Purpose of session/treatment goals addressed:: The purpose of this session was to gather information on client's current stressors, symptoms, and treatment goals. Another goal was to build rapport and provide psychoeducation. Eye Contact:: Good Motor Activity:: Appropriate Appearance:: Neat Speech:: Rambling, Soft Mood:: Dysthymic Affect:: Congruent Thoughts:: Other, No evidence of hallucinations/delusions noted Staff Interventions:: Therapist used active listening and open-ended questions to explore client's current stressors, symptoms, history, and treatment goals. Therapist used strengths perspective to build rapport and highlight client?s resiliency traits. Therapist provided psychoeducation on depression, distortions, and maintenance cycles. Therapist also explored client's concerns about medication and memory. Client Response:: Client responded well to session, open to meeting with therapist. Client reports feeling depressed and tired this morning. Client shared she struggled to accomplish anything over the weekend due to her depressed mood. Client stated, if it wasn't for my , I wouldn't have made it to group today? as client has been struggling to get out of bed most days. Client connected with maintenance cycles and cognitive distortions. Client stated when she feels depressed, she sees life in a negative perspective. Client able to recognize this leads client to ruminate on the past, assume people do not like her, and believe she is a burden. Receptive to discussion on breaking depressive maintenance cycles. Client stated in the past she used singing and staying busy to cope with depression, but she is currently unable to use those things due to low motivation. Client also worries about her worsening memory issues. Client expressed concern that her memory issues are due to years of taking psychiatric medications or from Lupus. Client has her at home who helps client complete ADLs and drives client. Client will meet with [facility] psychiatrist on Thursday. Risks/Concerns:: Client denies any suicidal ideations, plan, or intent as of 05/14/20. Client reports issues with memory that are concerning to client and impacting client's functioning. Therapist to inform [facility] psychiatrist and staff. Progress Toward Goals/Plan:: Client started IOP at the end of last week, and appears to be responding well. Client endorses a depressed mood, anhedonia, low motivation, fatigue, ruminations, isolative behaviors, and difficulty concentrating. Client also reports delusions that they are watching me whenever she watches the news on TV. No delusions noted during session. Tx goals include getting back to doing things she enjoys, contribute more at home, and be healthier overall. Will continue IOP tx to prevent decompensation, increase use of healthy coping skills, and improve daily functioning. Time Stopped:: 10:10
--- NOTE | 2020-05-14 11:45 | BH.MTP_ITS ---
Master Treatment Plan - Patient Information Program Physician:: Dr. Debbie Schaefer Primary Therapist:: Kala JARRELL - Psychiatric Diagnoses Psychiatric Diagnoses:: Schizophrenia F20.9; major depressive disorder, recurrent, severe without psychosis F33.2; generalized anxiety disorder; cannot rule out depression or cognitive symptoms exacerbated by SLE. Diagnosis Code(s):: F33.2 - Estimated LOS Estimated LOS (in weeks):: 6 Problem/Goal #1 - Problem/Goal #1 Stated Goal:: Client will reduce depressive symptoms, anhedonia, and guilt associated with major depressive disorder. Description of Barriers: Client has medical issues that impact client's energy levels and physical activity which can reinforce depressive symptoms. Client reports chronic delusions, but client has insight to them. Client also reports memory issues and difficulty concentrating. Due to client's depression and the pandemic, client has not been engaging in hobbies and things she typically enjoys such as singing. Client reports it is difficult to wake up and get out of bed in the mornings which could be a barrier to IOP attendance. Functional Impact: Client is a 55-year-old female with a history of paranoid schizophrenia disorder. Client was referred to IOP by her outpatient therapist, Dr. Boyd due to worsening depression and ruminations. At admission, client reports constant worries and rumination over past events and an inability to function. Client also has been sleeping to escape and finds it very challenging to get out of bed. Additionally, client endorses low energy, low motivation, hopelessness, worthlessness, and anhedonia. Client does not have suicidal ideations, but client does report not caring if she . Client reports significant issues with concentration and memory. Client recently taken off Haldol which appeared to increase delusions and ruminations. Client has insight to her delusions and the delusions only seem to happen at home when watching TV. Client's symptoms are currently impacting client's overall functioning and quality of life. Goal Relevant Strengths/Supports: Client presents as a kind and receptive woman who wants to improve her mental health and functioning. Client has support from her partner, case coordinator, and other outpatient providers. - Objectives Objective #1 Stated Objective: Client will learn and utilize 2-3 healthy coping strategies to manage depressive symptoms as shown by reduced DSM-5 cross-cutting symptom measure score for depression. Interventions: Through group and individual sessions, therapist will assist client in learning internal coping strategies to manage depressive symptoms, along with helping client identify warning signs. Therapist will help client set small SMART goals to promote behavioral activation. Discharge Criteria: Client will have achieved this goal when DSM-5 symptoms for depression have decreased and can verbalize and has practiced at least 2 healthy coping strategies. Target Date: 06/21/20 Review Date: 06/07/20 Status: open Objective #2 Stated Objective: Client will reduce anhedonia through setting and accomplishing 1-2 behavioral activation goals a week. Interventions: Through group and individual sessions, client will learn how to set small SMART goals to promote mood stability. Therapist will provide education on maintenance cycles for depression and help client learn how to break unhealthy maintenance cycles. Discharge Criteria: Client will have accomplished this goal when can report accomplishing at least one behavioral activation goal a week. Target Date: 06/21/20 Review Date: 06/07/20 Status: open Problem/Goal #2 - Problem/Goal #2 Stated Goal:: Client will reduce overall frequency, intensity, and duration of anxiety to improve functioning. Description of Barriers: Client has medical issues that impact client's energy levels and physical activity which can reinforce depressive symptoms. Client reports chronic delusions, but client has insight to them. Client also reports memory issues and difficulty concentrating. Due to client's depression and the pandemic, client has not been engaging in hobbies and things she typically enjoys such as singing. Client reports it is difficult to wake up and get out of bed in the mornings which could be a barrier to IOP attendance. Functional Impact: Client is a 55-year-old female with a history of paranoid schizophrenia disorder. Client was referred to [facility] by her outpatient therapist, Dr. Boyd due to worsening depression and ruminations. At admission, client reports constant worries and rumination over past events and an inability to function. Client also has been sleeping to escape and finds it very challenging to get out of bed. Additionally, client endorses low energy, low motivation, hopelessness, worthlessness, and anhedonia. Client does not have suicidal ideations, but client does report not caring if she . Client reports significant issues with concentration and memory. Client recently taken off Haldol which appeared to increase delusions and ruminations. Client has insight to her delusions and the delusions only seem to happen at home when watching TV. Client's symptoms are currently impacting client's overall functioning and quality of life. Goal Relevant Strengths/Supports: Client presents as a kind and receptive woman who wants to improve her mental health and functioning. Client has support from her partner, case coordinator, and other outpatient providers. - Objectives Objective #1 Stated Objective: Client will identify 2-3 anxiety triggers and 2 calming coping skills to reduce anxiety as shown by decreased DSM-5 cross cutting symptom measure scores. Interventions: Therapist will help client increase awareness of anxiety triggers and educate client on the ways anxiety impacts overall health. Therapist will teach client various calming and mindfulness strategies to promote emotional regulation and reduction of anxiety. Therapist will encourage client to implement healthy coping skills on a regular basis. Discharge Criteria: Client will have accomplished this goal when can report at least 2 triggers for anxiety and 2 calming strategies to manage symptoms. Additionally, client will have accomplished this goal when can report reduced DSM-5 cross cutting symptoms for anxiety. Target Date: 06/21/20 Review Date: 06/07/20 Status: open Objective #2 Stated Objective: Client will identify 2-3 cognitive distortions that lead to rumination and learn 2-3 ways to manage these thoughts to better manage anxiety. Interventions: Therapist will provide education on the most common cognitive distortions and teach client the connection between thoughts, emotions, and feelings. Therapist will use CBT techniques to help client gain awareness of thinking errors and learn how to more effectively handle negative thoughts. Discharge Criteria: Client will have accomplished this goal when can identify at least 2 cognitive distortions and at least 2 coping skills to manage negative thoughts. Target Date: 06/21/20 Review Date: 06/07/20 Status: open
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
--- NOTE | 2020-05-16 09:50 | BH.NA ---
Physical Data - Vital Signs Pulse Rate: 82 Blood Pressure: 130/60 - Height/Weight Height: 1.56 m Weight:: 107.501 kg - standing scale Weight in Pounds: 237.0 lbs Current Medication Compliance - Medication Compliance Do you take your medication as prescribed?: Yes Nutritional History - Appetite Nutritional Instructions:: If client shows signs of a swallowing problem, weight change of 10 pounds or more in the last month, or is on a diabetic diet, the physician will review and request a dietitian consult, as appropriate. All unintentional weight loss will be referred to the physician for decision on need for dietitian consult. Describe your appetite:: Good Additional nutritional information:: Client states her and her are working on making smaller portion sizes for their meals because her portion sizes are large. Functional Assessment - Sleep Pattern Describe any problems with sleeping: Client states she sleeps 8-10 hours per night. - Activities Motor Activity:: Functional Sensory/Communication Assess - Vision Problems Do you have any vision problems?: Glasses - Communication Problems Do you have difficulty understanding what people are saying?: No Do you have trouble putting your thoughts into words or expressing what you want to say?: Yes What is your primary language?: Filipino Medical Problems/History - Cardiac Conditions Cardiovascular: Hyperlipidemia - Respiratory Conditions Respiratory: Other (See comments) Comments:: obstructive sleep apnea - Additional History Additional comments:: lupus, paranoid schizophrenia Surgical History - Surgical History Have you had any surgeries? If so, list type and date:: Yes - bladder sling Substance Abuse - Substance Abuse Please describe substance abuse in the last 30 days:: Client denies alcohol use. Client states she is a former smoker, and still feels the urge to smoke but does not. Client denies recent drug use. Client states she drinks 2 cups of coffee per day. Mental Status Summary - Mental Status Significant Findings/Observations on Appearance and Mood:: Client is alert and oriented x 4. Client is wearing a mask due to pandemic. Client is casually groomed. Client makes fair eye contact. Client's voice has normal rate and volume. Client appears mildly anxious. Client is a somewhat poor historian of details with poor memory to recall details and often asks for question to be repeated after attempting to answer it and getting distracted. Client reports some delusions while watching TV that she believes the people on the TV are watching her- client states she is able to recognize this as a delusion and rationalize. Client denies SI. Suicide Assessment - Suicidal Ideation Are you currently or have you been suicidal in the past?: Yes - denies SI this date Suicidal Intentional Rating Scale (SIRS): Suicidal thoughts (past) Physician Notification: If Active suicidal thoughts/Will not contract for safety is checked, contact physician and document in the Physician Notification section below. Past Psychiatric History - MH Treatment Hx Past Psychiatric Medications:: thorazine, lithium Age of first mental health symptoms: Client states she was diagnosed schizoaffective and later diagnosed as paranoid schizophrenic around 1986. Describe (age, circumstance, etc) any past hospitalizations: Client has not been hospitalized since 2001. Client states she was first hospitalized when she was about 16 years old. Current providers for mental health treatment (counselor, psychiatrist, ed case manager, etc.): psyhiatrist at [facility], case management social worker at [facility], psychologist Dr. Boyd Fall Risk Assessment - Age Age: Less than 60 - Mental Status Mental Status: Willing & able to ask for assistance when needed - Physical Status Physical Status: No problems - Impairments Impairments: None - Elimination Elimination: Continent AND independent - Gait or Balance Gait or Balance: Walks independently - Hx of Falls History of falls in the past 6 months: No known history - Medications/Substances Psychotropics:: Antidepressants, Mood stabilizers, Anxiolytics (e.g. benzodiazepines), Anticholinergics (e.g. benztropine) Medications/substances used within the past 24 hours or ordered to administer: 3 or more of the medications/substances listed above - Total Score Total Points:: 2 RN Summary of Impressions - Impressions Recommendations: Include psychiatric and medical issues, treatment planning recommendations, and discharge planning needs. Impressions: Psychiatric Issues: schizophrenia, major depressive disorder, recurrent, severe without psychosis; generalized anxiety disorder; cannot rule out depression or cognitive symptoms exacerbated by SLE. Impression: General Medical Conditions: Client states she recently has had a metallic taste in her mouth often since some recent medication changes; client is poor historian and knows her Haldol was recently restarted but unsure of other medications changes. Client also states she was told recently that her bladder is lower after bladder sling surgery and client states she feels she has urinary frequency. Both of these concerns discussed with Dr. Kingston. - Level of Care How do the client's current symptoms and functional deficits support need for this level of care?: Client was referred to IOP by her psychologist. Client reports I was struggling. Client reports intrusive thoughts, decreased short-term memory, rumincations and decreased energy. Client is a poor historian during assessment, frequently attempting to answer a question and stopping to ask what the question was. Client does state she at times has delusions while watching TV, stating she thinks the people on TV can see her and are watching her. Client states she is able to recognize this is a delusion and is able to rationalize. Client reports she feels her memory has gotten worse in the recent months. Client states she attempted to stop taking her Haldol after being on it for many years due to feeling it was making her sleep all the time, but states when she was off Haldol her said she talked nonstop and she was not doing well so client is taking her Haldol again. IOP will promote gains and prevent further decompensation while providing social support and skills training.
--- NOTE | 2020-05-16 10:05 | BH.SGPN.GN ---
Behaviors/Verbalizations/Mental Status: [] Eye contact is good. Motor activity is appropriate. Appearance is casual. Speech is Appropriate. Mood is anxious. Affect is congruent. Thoughts are linear and logical. No evidence of psychosis. Client Response/Progress/Benefit: [] Pt was an active participant in group discussion and was attentive during psychoeducation. Provided input on the quote of the day. Group was primarily educational and introduced and gave examples of the 10 cognitive distortions. Pt provided some examples of personal experiences for certain cognitive distortions. Benefited from education and increased awareness of cognitive distortions and role that they play in negative thoughts and emotions. Will continue in IOP to provided support, increase coping skills, prevent decompensation. Narrative Note: []
[2020-05-16 10:46] VITALS: BP 130/60; PULSE 82
--- NOTE | 2020-05-16 11:15 | BH.SGPN.GN ---
Behaviors/Verbalizations/Mental Status: []Client alert and oriented, casual dress, hygiene tended to. Eye contact fair. Motor activity appropriate. Speech within normal limits. Affect constricted. mood anxious. Thoughts linear, logical, no signs of hallucinations or delusions. Client Response/Progress/Benefit: []Client was a passive participant AEB client providing limited input throughout session however appeared to listen attentively to peers and competed worksheet. Client attentive during psychoeducation and additional discussion on cognitive distortions. Client listened and nodded head during discussion about how to reframe distorted thoughts into more realistic, rational statements. Client shared her distorted thought is I'm fat and unlovable. Client able to reframe distorted thought to I'm overweight, but I'm doing things to feel healthy. Client seemed to benefit from practicing identifying and reframing distorted thoughts. Progress noted AEB pt reporting being able to make more connections today. To continue IOP to increase healthy coping skills, improve daily functioning, and prevent decompensation. Narrative Note: []
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
--- NOTE | 2020-05-16 13:28 | BH.PSY.EVA_ITS ---
Initial Treatment Plan - Patient Information Visit Information: ADMISSION DATE: EXPECTED LOS: 4-6 weeks - Problems/Symptoms Problem #1:: Depression Symptom:: Sadness, hopelessness, worthlessness, anhedonia, decreased concentrat ion, guilt, passive thoughts of Problem #2:: Anxiety Symptom:: Worry, rumination
--- NOTE | 2020-05-18 09:05 | BH.SGPN.GN ---
Behaviors/Verbalizations/Mental Status: [] Eye contact is good. Motor activity is appropriate. Appearance is casual. Speech is Appropriate. Mood is depressed. Affect is flat. Thoughts are linear and logical. No evidence of psychosis. Reviewed daily check in sheet and no reports of suicidal ideations or intent Client Response/Progress/Benefit: [] Pt spoke when prompted. Attentive. Emotion for today is depressed however reports I'm getting better. Attributes progress to routine, support, and skills of IOP. Feels that she has nothing to contribute or look forward to stating everyone here is doing something like college or rasing kids and I don't have anything. Group re-framed thoughts and pointed out positive for patient. Struggles with motivation at home continuing to lay around all day and not complete tasks. Daily symptom tracker notes /5 for depression. Progress noted per pt. Benefited from support and routine of IOP. Will continue in IOP to prevent decompensation, increase healthy coping, and to improve functioning. Narrative Note: []
--- NOTE | 2020-05-18 10:10 | BH.SGPN.GN ---
Behaviors/Verbalizations/Mental Status: []Client alert and oriented, casually dressed and groomed. Eye contact fair. Motor activity appropriate. Speech within normal limits. Affect constricted, mood dysthymic. Thoughts linear, logical, no signs of hallucinations or delusions. Client Response/Progress/Benefit: []Client was an active participant AEB contributing to discussion and participating in activity. Connected with the topic of pitfalls and helped the group discuss barriers that keep them from choosing a healthier path to mental wellness such as pitfalls. Group worked together to identify examples of personal pitfalls which included; avoidance behaviors, self-comparison, isolation, personalizing, catastrophizing, all or nothing thinking, and not meeting high expectations. Client shared her personal pitfall as isolation. Benefited from group AEB engaged during the activity and recognized how negative self-talk has impacts on daily living. Client will continue IOP to increase the use of healthy coping skills, reframe negative thoughts, and prevent decompensation. Narrative Note: []
--- NOTE | 2020-05-18 11:10 | BH.SGPN.GN ---
Behaviors/Verbalizations/Mental Status: []Client alert and oriented, neatly dressed and groomed. Eye contact good. Motor activity appropriate. Speech within normal limits. Affect constricted, mood dysthymic. Thoughts linear, logical, no signs of hallucinations or delusions. Reports difficulty concentrating. Client Response/Progress/Benefit: []Client receptive of session, engaged throughout AEB client listening to discussion and taking notes. Client reported struggling with concentration at times and was receptive to feedback and encouragement. Client completed a worksheet where client identified personal pitfalls impacting mental health progress. Client?s pitfalls included negative thinking and negative self-talk. Attentive and contributing during group brainstorm of strategies to overcome pitfalls. Client will work on overcoming pitfalls by practicing positive self-talk and logical thinking. Benefited from identifying personal pitfalls and strategies to overcome these pitfalls. Progress limited, but client appears to benefit from the social aspect of IOP tx. Will continue IOP tx to prevent decompensation, reduce isolative behaviors, and improve daily functioning. Narrative Note: []
--- NOTE | 2020-05-21 09:05 | BH.SGPN.GN ---
Behaviors/Verbalizations/Mental Status: [] Eye contact is good. Motor activity is appropriate. Appearance is casual. Speech is Appropriate. Mood is depressed. Affect is flat. Thoughts are linear and logical. No evidence of psychosis. Reviewed daily check in sheet and no reports of suicidal ideations or intent. Client Response/Progress/Benefit: [] Pt spoke when prompted. Attentive. Did not share any mental health wins. States that she has been obessing over completing some tasks in her house specifically regarding cleaning and pulling carpet in one room. She reports that she has plans and time to complete task however is never motivated. I just sit in my recliner. This makes her more depressed and feels like a failure. Group was supportive and offered some suggestions and feedback which included setting small goal of working on room 15-30 minutes 1-2 x weekly. Pt was recpetive and feels that this is something she can complete and appear motivated. No progress noted per pt reports. Benefited from group feedback. Will continue in IOP to prevent decompensation, provide support, and increase healthy coping. Narrative Note: []
--- NOTE | 2020-05-21 10:00 | BH.SGPN.GN ---
Behaviors/Verbalizations/Mental Status: []Client alert and oriented, casually dressed and appropriately groomed. Eye contact fair. Motor activity appropriate. Speech within normal limits. Affect constricted, mood anxious. Thoughts linear, logical, no signs of hallucinations or delusions. Client Response/Progress/Benefit: []Client engaged during session AEB taking notes, providing input, and listening attentively to others. Client worked with peers on defining goals and brainstorming the benefits of goal setting. Benefits included: having a purpose or sense of direction, creating a positive change, feeling in control of the outcomes, provides motivation, increases self-esteem, improves mental health, shows progress in daily living, and feeling grounded. Client stated her benefit of accomplishing goals increases motivation. Group discussed the barriers that keep people from either setting goals or following through with goals. Client attentive during psychoeducation on SMART goals. Appeared to benefit from learning the mental health benefits of setting goals using SMART criteria. Progress noted as client was able to identify personal prison and short term goals to accomplish. Will continue IOP to increase the use of healthy coping skills, reduce negative thinking, and improve mood. Narrative Note: []
--- NOTE | 2020-05-21 11:20 | BH.SGPN.GN ---
Behaviors/Verbalizations/Mental Status: []Eye contact is fair. Alert and oriented. Motor activity is appropriate. Appearance is casual. grooming is appropriate. Speech is Appropriate. Mood is anxious. Affect is constricted. Thoughts are linear and logical. No evidence of psychosis or hallucinations. Client Response/Progress/Benefit: []Client was engaged during discussion, did well to complete activity and process with the group. Client was willing to complete the worksheet in which she was challenged to develop a personal SMART goal. Client chose the goal is to clean her house by sweeping and dusting one room per day. Client stated this will benefit her by giving her a less cluttered environment. Client struggled initially with coming up with her goal so she did not have enough time to identify barriers or solutions. Benefited from this group by developing a short-term SMART goal related to mental health. Will continue IOP tx to increase healthy coping skills, increase daily activity and prevent decompensation. Narrative Note: []
--- NOTE | 2020-05-23 09:05 | BH.SGPN.GN ---
This psychotherapy group was provided via telehealth using two-way, real-time interactive telecommunication technology between the patients and the provider.?The interactive telecommunication technology included audio and video.? ?The patient was offered telemedicine as an option for care delivery during the COVID-19 pandemic and consented to this option. ?Patient location: [place] ?Provider located at [facility] Behaviors/Verbalizations/Mental Status: []Alert and oriented. Appearance, eye contact, and motor activity unable to gather due to client unable to display video. Speech within normal limits. Mood dysthymic. Thoughts linear, no signs of hallucinations or delusions. Clients daily symptom tracker scores indicate no risk for SI, plan, or intent. Client Response/Progress/Benefit: []Client responded well to session, entered late because of issues with telehealth. Client states feeling grateful to be at IOP this morning. Client shared she continues to struggle in the mornings due to her mental health and medical conditions. Client was receptive to positive feedback from peers and office manager receptionist highlighting that client showed for group today despite fatigue. Client stated she had a good day yesterday, but today she is struggling to get motivated. Appeared to benefit from connecting with peers and receiving positive feedback. Will continue IOP tx to prevent decompensation, reduce isolative behaviors, and increase social activity. Narrative Note: []
--- NOTE | 2020-05-25 10:00 | BH.SGPN.GN ---
This psychotherapy group was provided via telehealth using two-way, real-time interactive telecommunication technology between the patients and the provider. The interactive telecommunication technology included audio and video. The patient was offered telemedicine as an option for care delivery during the COVID-19 pandemic and consented to this option. Patient location: [place] Provider located at [facility] Behaviors/Verbalizations/Mental Status: []Client alert and oriented, casually dressed, hygiene appeared to be tended to. Eye contact fair. Motor activity appropriate. Speech within normal limits. Affect full, mood anxious. Thoughts linear, logical, no signs of hallucinations or delusions. Client Response/Progress/Benefit: []Client responded well to session, attentive and engaged throughout discussion and activity. Client defined fear of failure as ?consequences that prevent people from trying to accomplish goals.? The group identified benefits of failure as: learning new skills, gains perspective, and helps individuals learn to succeed. The group identified impacts of fear of failure as: keeps us stagnant, keeps us from seeking help, increase of hopelessness, and fear of change. Client seemed to connect how failures can lead to positive changes. Client appeared to benefit from gaining awareness of the impact fear of failure can have on one?s mental health and wellbeing. Will continue IOP to increase the use of healthy coping skills, reduce negative thinking, and prevent further decompensation Narrative Note: []
--- NOTE | 2020-05-25 11:05 | BH.SGPN.GN ---
This psychotherapy group was provided via telehealth using two-way, real-time interactive telecommunication technology between the patients and the provider.?The interactive telecommunication technology included audio and video.? ?The patient was offered telemedicine as an option for care delivery during the COVID-19 pandemic and consented to this option. ?Patient location: [place] ?Provider located at [facility] Behaviors/Verbalizations/Mental Status: []Client alert and oriented, disheveled appearance. Eye contact good. Motor activity appropriate. Speech within normal limits. Affect congruent, mood dysthymic. Thoughts linear, logical no signs of hallucinations or delusions. Client Response/Progress/Benefit: []Client responded well to session, provided words of encouragement during the activity. Client completed the fear of failure worksheet and reported that fear of failure has kept client from applying for a job. Client able to identify barriers that reinforce fear of failure which included: previous bad experiences, inability to concentrate, and negative self-talk. Client attentive during discussion of the different strategies to help overcome fear of failure. Client reports plan to practice challenging negative self-talk to overcome fear of failure. Client appeared to benefit from increasing insight to barriers and learning healthy coping skills. Will continue IOP tx to prevent decompensation, reduce isolation, and improve daily functioning. Narrative Note: []
--- NOTE | 2020-05-25 15:07 | BH.MDN_ITS ---
Multi-Disciplinary Note - Note 30-min Individual Time Started:: 14:07 Date: 05/25/20 Purpose of session/treatment goals addressed:: The purpose of this session was to work on goal #1 of client's tx plan. Symptoms/Behavior:: This counseling session was provided via telehealth using two-way, real-time interactive telecommunication technology between the patient and the clinician. The interactive telecommunication technology included audio and video. The patient was offered telehealth as an option for care delivery during the COVID-19 pandemic and consented to this option. Patient location: [place]. Provider located at [facility] Eye Contact:: Good Motor Activity:: Appropriate Appearance:: Casual Speech:: Appropriate Mood:: Euthymic Affect:: Congruent Thoughts:: Linear, Logical, No evidence of hallucinations/delusions noted Staff Interventions:: Therapist provided education on maintenance cycles for depression and helped client learn how to break unhealthy maintenance cycles. Therapist helped client set small SMART goals to promote mood stability. Therapist used the A.C.E skill to help client on activities that promote sense of accomplishment, closeness, and enjoyment. Therapist also gave client resources for [employer]. Client Response:: Client responded well to session, open to meeting with therapist. Client shared she wants to work on setting goals, but client stru ggles to follow through with the goals. Client stated she often sets too big or goals or lacks the motivation to get started. Client receptive to learning about A.C.E to help client set more realistic goals. Client's A.C.E goals included one thing she could accomplish today, one activity that makes her feels closeness, and one activity that brings enjoyment. Client's goals included cleaning for 20 minutes, showering every morning over the weekend, and singing to one song on the radio once a day. Client also receptive to the suggestion of attending [employer] [facility] as this could help client feel connected, reduce isolation, and increase ability to be creative. Client continues to struggle with memory, so therapist will email client with summary of goals from session. Risks/Concerns:: Client denies any suicidal ideations, plan, or intent as of 05/25/20. Progress Toward Goals/Plan:: Client has been struggling with attendance due to difficulty waking up in the mornings, but she has been doing her best to join via telehealth. Client endorses a depressed mood, anhedonia, low motivation, fatigue, ruminations, isolative behaviors, and difficulty concentrating. Still not functioning well at home AEB not cleaning or engaging in personal hygiene routine. Client receptive to setting goals, but reports history of limited follow through due to mental health symptoms and physical issues. Will continue IOP tx to prevent decompensation, increase use of healthy coping skills, and improve daily functioning. Time Stopped:: 14:40
--- NOTE | 2020-05-28 09:00 | BH.SGPN.GN ---
This psychotherapy group was provided via telehealth using two-way, real-time interactive telecommunication technology between the patients and the provider. The interactive telecommunication technology included audio and video. The patient was offered telemedicine as an option for care delivery during the COVID-19 pandemic and consented to this option. Patient location: [place] Provider located at [facility] Behaviors/Verbalizations/Mental Status: []Client alert and oriented, casually dressed. Eye contact fair. Motor activity appropriate. Speech within normal limits. Affect congruent, mood anxious. Thoughts linear, logical, no signs of hallucinations or delusions. Reviewed client?s symptom tracker, no risk or plan for suicide ideation as of 05/28/20. Client Response/Progress/Benefit: []Client responded well to session, engaged throughout and participated in group discussion. Client reported feeling ?neutral? after her check in. Client stated her goal for the weekend was to clean her house which she did not do due to feeling unmotivated. Client expressed daily hygiene like showering was hard to complete. Client identified her positives as ?eating and participating in IOP group.? Benefited from group as client was able to connect with other group members and practice opposite action by attending group when unmotivated to do so. Client will continue IOP to increase the use of healthy coping skills, reduce negative thinking, and prevent further decompensation Narrative Note: []
--- NOTE | 2020-05-28 10:03 | BH.SGPN.GN ---
This psychotherapy group was provided via telehealth using two-way, real-time interactive telecommunication technology between the patients and the provider.?The interactive telecommunication technology included audio and video.? ?The patient was offered telemedicine as an option for care delivery during the COVID-19 pandemic and consented to this option. ?Patient location: [place] ?Provider located at [facility] Behaviors/Verbalizations/Mental Status: []Client alert and oriented, casual dress, hygiene tended to. Eye contact fair. Motor activity appropriate. Speech within normal limits. Affect flat, mood depressed. Thoughts linear, logical, no signs of hallucinations or delusions. Client Response/Progress/Benefit: []Pt responded well to the first half of session AEB pt contributing to session and listening attentively to others. Pt connected with the topic of resilience and discussed the positive and negative forces in life that impact a person?s resilience. Pt agreed with peers that one can become more resilient. Pt left group early due to feeling confused by the content and the added barrier of telehealth. An IOP therapy reached out to pt and pt was not under distress. Pt seemed to benefit from increasing awareness what impacts a person?s resilience and from connecting with peers. Pt continues to struggle with retaining information during group sessions which may hinder progress. Will continue to encourage in person IOP to reduce additional barriers caused by telehealth. Will continue IOP tx to prevent decompensation and reduce isolative behaviors. Narrative Note: []
--- NOTE | 2020-05-30 10:15 | BH.SGPN.GN ---
Behaviors/Verbalizations/Mental Status: [] Eye contact is good. Motor activity is appropriate. Appearance is casual. Speech is Appropriate. Mood is anxious. Affect is congruent. Thoughts are linear and logical. No evidence of psychosis. Client Response/Progress/Benefit: [] Pt participated at times in group discussions. Attentive and provided minimal insights during psychoeducation on benefits and disadvantages of anxiety and review of different types of Anxiety Disorders (Social Anxiety, ROSALEE, OCD, PTSD, and Separation Anxiety). Completed worksheet on identifying her own physical symptoms or signs of anxiety which pt reported numerous however identified most frequent as being scatter-brained and having difficult time communicating. Benefited from increased awareness of physiological signs of anxiety as well as differences between 'normal' anxiety and anxiety disorder. Will continue in IOP to provide support, increase healthy coping skills, and increase motivation. Narrative Note: [] This psychotherapy group was provided via telehealth using two-way, real-time interactive telecommunication technology between the patients and the provider.?The interactive telecommunication technology included audio and video.? ?The patient was offered telemedicine as an option for care delivery during the COVID-19 pandemic and consented to this option. ?Patient location: [place] ?Provider located at [facility]
--- NOTE | 2020-05-30 11:15 | BH.SGPN.GN ---
psychotherapy group was provided via telehealth using two-way, real-time interactive telecommunication technology between the patients and the provider.?The interactive telecommunication technology included audio and video.? ?The patient was offered telemedicine as an option for care delivery during the COVID-19 pandemic and consented to this option. ?Patient location: [place] ?Provider located at [facility] Behaviors/Verbalizations/Mental Status: []Client alert and oriented, casually dressed and groomed. Eye contact good. Motor activity appropriate. Speech within normal limits. Affect constricted, mood dysthymic. Thoughts linear, logical, no signs of hallucinations or delusions. Client Response/Progress/Benefit: []Client was an active participant in group discussion and taking notes throughout. Attentive during psychoeducation on mindfulness coping skills and their impact on mental health wellness. The group practiced deep breathing and progressive muscle relaxation. Client was able to identify self-soothing and mind-based coping skills which included: 5-senses, meditation, deep breathing, journaling, and body scan. Client would like to work using prayer today to manage anxiety. Appeared to benefit from practicing in the moment coping skills. Progress noted in client?s engagement via telehealth, but client continues to struggle with completing ADLs and self-motivation. Client will continue IOP tx to prevent decompensation, improve daily functioning, and increase healthy coping skills. Narrative Note: []
--- NOTE | 2020-06-01 11:34 | BH.COMM ---
Communication Note - Communication with Client Communication Note: Client cancelled her scheduled IOP group and individual session today. Client continues to struggle with getting up and moving in the mornings. Client scheduled for next week.
--- NOTE | 2020-06-06 09:00 | BH.SGPN.GN ---
This psychotherapy group was provided via telehealth using two-way, real-time interactive telecommunication technology between the patients and the provider. The interactive telecommunication technology included audio and video. The patient was offered telemedicine as an option for care delivery during the COVID-19 pandemic and consented to this option. Patient location: [place] Provider located at [facility] Behaviors/Verbalizations/Mental Status: []Client alert and oriented, disheveled appearance. Eye contact fair. Motor activity appropriate. Speech within normal limits. Affect flat, mood anxious and dysthymic. Thoughts linear, logical, no signs of hallucinations or delusions. Reviewed client?s symptom tracker, no risk or plan for suicide ideation as of 06/06/20. Client Response/Progress/Benefit: []Client responded well to session, engaged throughout and participated in group discussion. Client reported feeling ?frustrated? during her check-in as she does not feel good with her physical health and reported it impacting her mental health. Client stated she oversleeps and cannot stay awake which decreases her motivation. Benefited from group as peers offered ideas and feedback to increase motivation like positive affirmations, setting alarms, and using opposite action. Client identified her positive as attending IOP to better herself. Client?s difficulty staying awake and inconsistent attendance may hinder progress in IOP. Client will continue IOP to increase the use of healthy coping skills, increase motivation, and improve daily functioning. Narrative Note: []
== END 2020-06-03 23:59 ==
LOC: BHIOP 08:30
PROVIDERS: PCP Internal Medicine; Referring Provider Psychiatry & Neurology Psychiatry; Visit Provider Psychiatry & Neurology Psychiatry
DX: F20.9 Schizophrenia, unspecified (principal); F33.2 Major depressive disorder, recurrent severe without psychotic features; F41.1 Generalized anxiety disorder; M32.9 Systemic lupus erythematosus, unspecified; E66.9 Obesity, unspecified; Z62.810 Personal history of physical and sexual abuse in childhood; Z79.899 Other long term (current) drug therapy; Z91.5 Personal history of self-harm; Z87.891 Personal history of nicotine dependence; Z81.8 Family history of other mental and behavioral disorders
CPT/HCPCS: H0035; 90832; 90834; 90853

== ENCOUNTER 2021-05-24 11:44 | Emergency (ER) | payer MEDICARE, MEDICAID, SELFPAY ==
[2021-05-24 11:45] VITALS: BP 121/101; PULSE 101; RESP 18; TEMP 36.2; O2SAT 93; BMI 45.7
--- NOTE | 2021-05-24 12:06 | EKG12_ITS ---
Test Reason : CP Blood Pressure : / mmHG Vent. Rate : 099 BPM Atrial Rate : 099 BPM P-R Int : 160 ms QRS Dur : 074 ms QT Int : 338 ms P-R-T Axes : 050 -05 005 degrees QTc Int : 433 ms Normal sinus rhythm Low voltage QRS Borderline ECG Confirmed by DENNIS BURGOS, ANTIONE ([id number]), restaurant expeditor MOY STEVENSON ([id number]) on 05/27/2021 10:41:14 A M Referred By: SANNA/MURPHY Confirmed By:RAN COLLINS MD
[2021-05-24 12:09] VITALS: PULSE 99; RESP 16
--- NOTE | 2021-05-24 12:17 | ED.VIS.CHEST ---
HPI History of Present Illness Chief Complaint: Chest Pain Informant: patient Onset/Context/Timing Onset: Today Activity at onset: sudden Timing: Lasts (Approximately 15 minutes) Quality: Positive for Aching and Pressure Location: Right Chest and Left Chest Worsened By: Nothing Relieved By: Nothing Associated Symptoms: Positive for Cough and Palpitations; Negative for Nausea, Vomiting, Diaphoresis, Dyspnea, Fever, Lightheadedness and Acid Reflux Narrative Narrative: Patient presents with chest pain that began today. Patient states it woke her up this morning. Patient states that last approximately 15 minutes. Patient states she also had bilateral ear pain with her chest pain. Patient describes it as aching and pressure across her chest. Patient states nothing makes it better nothing makes it worse. Patient admits to a cough. Patient also admits to some palpitations. Patient denies any shortness of breath or diaphoresis. Patient denies any nausea or vomiting. Patient has a history of lupus but denies any other cardiac or PE risk factors. CVD Risk Factors: Negative for Hypertension, Diabetes, Hypercholesterolemia, Family History 1' </=55 and Smoking PE Risk Factors: Negative for Recent Travel/Surgery, Recent Immobilization, Prior DVT or PE, Cancer and OCP + Smoking + >/=35 PFSH [facility] Medical History (Updated 05/24/21 @ 15:[address] Britton Nassar, DO) Generalized anxiety disorder Hyperlipidemia Lupus (systemic lupus erythematosus) Major depressive disorder, recurrent severe without psychotic features Obstructive sleep apnea Schizophrenia Home Medications hydroxychloroquine 200 mg PO DAILY 04/30/13 [History Last Taken 12/03/17] benztropine 0.5 mg PO BID 12/03/17 [History Last Taken 12/03/17] cevimeline 30 mg PO TID 12/03/17 [History Last Taken 12/03/17] clonazepam 0.25 mg PO BID 12/03/17 [History Last Taken 12/03/17] docusate sodium [Stool Softener] 100 mg PO BID 12/03/17 [History Last Taken 12/03/17] fluoxetine 40 mg PO DAILY 12/03/17 [History Last Taken 12/03/17] folic acid 1 mg PO DAILY 12/03/17 [History Last Taken 12/03/17] haloperidol 5 mg PO QHS 12/03/17 [History Last Taken 12/02/17] lurasidone [Latuda] 60 mg PO BREAKFAST 12/03/17 [History Last Taken 12/02/17] methotrexate sodium 15 mg PO QWEEK 12/03/17 [History Last Taken 11/28/17] pantoprazole 40 mg PO DAILY 12/03/17 [History Last Taken 12/03/17] pravastatin 10 mg PO QHS 12/03/17 [History Last Taken 12/02/17] calcium carbonate-vitamin D3 1 tab PO BID 05/16/20 [History Last Taken Unknown] cyanocobalamin (vitamin B-12) 1,000 mcg PO DAILY 05/16/20 [History Last Taken Unknown] ergocalciferol (vitamin D2) 50,000 unit PO QWEEK 05/16/20 [History Last Taken Unknown] levofloxacin 500 mg PO DAILY #6 tab 05/24/21 [Rx Last Taken Unknown] Allergy/AdvReac Type Severity Reaction Status Date / Time erythromycin base Allergy Anaphylaxis Verified 05/24/21 11:48 [Erythromycin Base] nitrofurantoin Allergy Anaphylaxis Verified 05/24/21 11:48 macrocrystalline [From Macrodantin] Penicillins Allergy Anaphylaxis Verified 05/24/21 11:48 codeine AdvReac Unknown Verified 05/24/21 11:48 metronidazole [From Flagyl] AdvReac Other Verified 05/24/21 11:48 Metronidazole HCl AdvReac Other Verified 05/24/21 11:48 [From Flagyl] morphine AdvReac Unknown Verified 05/24/21 11:48 Sulfa (Sulfonamide AdvReac Unknown Verified 05/24/21 11:48 Antibiotics) Surgical History Hx of cataract surgery Hx of laparoscopy Social History Smoking Status: Former smoker ROS ROS ED Constitutional Constitutional ED: Denies chills or fever(s) Eyes Eyes: Denies blurry vision or change in vision ENT ENT ED: Reports ear pain bilateral; Denies rhinorrhea or sore throat Cardiovascular Cardiovascular: Reports chest pain and palpitations Respiratory/Chest Respiratory/Chest: Reports cough; Denies dyspnea Gastrointestinal Gastrointestinal: Denies abdominal pain, nausea or vomiting Genitourinary Genitourinary ED: Denies dysuria or hematuria Musculoskeletal Musculoskeletal: Denies back pain or neck pain Integumentary Denies abscess or rash Neurologic Neurologic: Denies headache(s) or weakness Allergic/Immunologic Allergic/Immunologic ED: Denies mouth swelling or urticaria EXAM Physical Exam Const Vital Signs: 05/24/21 11:45 05/24/21 12:09 05/24/21 12:22 Temperature 97.1 F L Temperature Source Temporal Pulse Rate 101 H 99 Respiratory Rate 18 16 Respiratory Effort Normal Non-Labored Blood Pressure 121/101 H Blood Pressure Mean 107 Pulse Ox 93 94 Oxygen Delivery Method Room Air Room Air 05/24/21 13:47 05/24/21 14:12 05/24/21 15:04 Temperature Temperature Source Pulse Rate 83 84 79 Respiratory Rate 11 L 18 18 Respiratory Effort Blood Pressure Blood Pressure Mean Pulse Ox 96 96 96 Oxygen Delivery Method Room Air Room Air Room Air Positive well nourished, well developed and obese General Appearance ED: well developed Nutritional Appearance: obese HEENT normocephalic and atraumatic Eyes PERRL and EOMs intact bilaterally Neck supple and no JVD Chest Wall palpation of chest normal Resp normal respiratory effort and clear to auscultation bilaterally Effort and Inspection: Negative for respiratory distress Cardio regular rate, regular rhythm and no murmurs GI normal to inspection, nondistended, normoactive bowel sounds, soft to palpation, non-tender and non-distended Extremity normal to inspection General Extremety ED: Negative for edema or tenderness General Extremity: Negative for edema Neuro oriented x3, CN's II-XII intact bilaterally and no sensory deficits noted Sensorium / Orientation: awake and alert Motor Exam: strength 5/5 throughout Psych mental status grossly normal Heart Score History: Slightly/Non-Suspicious ECG: Normal Age: >45 - <65 years Risk Factors: No Risk Factors Score: 1 MDM MDM MDM Narrative Medical decision making narrative: EKG was obtained. On my interpretation, it showed a normal sinus rhythm with a rate of 99. IA interval, QRS interval, and QTc intervals were all normal. [place] was normal. There are no acute ST or T wave changes. Portable x-ray was obtained. There are increased markings in the lingula as well as the right lung base. CBC was within normal limits. Basic metabolic profile was normal. Initial high-sensitivity troponin was normal at 10. 2-hour repeat high-sensitivity troponin was normal at 16. Patient feels better on reevaluation. Patient was given a dose of Levaquin here. Patient is given a prescription for Levaquin. Patient was instructed to follow-up with her primary care physician in 5 to 7 days. Patient was instructed return if worse in any way. Patient understood and was agreeable with the plan. All questions were answered. Lab Data Attestation: I reviewed the patient's lab results. Labs: Laboratory Results - last 24 hr 05/24/21 05/24/21 05/24/21 12:14 12:14 14:16 WBC 7.4 RBC 4.03 L Hgb 12.0 Hct 36.5 L MCV 90.6 MCH 29.8 MCHC 32.9 RDW Std Deviation 45.7 H RDW Coeff of Jayde 13.7 Plt Count 278 MPV 10.0 Immature Gran % (Auto) 0.100 Neut % (Auto) 74.1 H Lymph % (Auto) 16.1 L [place] % (Auto) 5.4 Eos % (Auto) 3.3 Baso % (Auto) 1.0 Absolute Neuts (auto) 5.5 Absolute Lymphs (auto) 1.18 Nucleated RBC % 0 Sodium 135 L Potassium 4.0 Chloride 103 Carbon Dioxide 27.0 Anion Gap 5 BUN 9 Creatinine 1.02 Estim Creat Clear Calc 48.13 Est GFR (MDRD) Af Amer 72 Est GFR (MDRD) Non-Af 59 L BUN/Creatinine Ratio 8.8 L Glucose 152 H Calcium 8.9 Troponin I High Sens 10 16 Radiography Chest X-Ray - ED: 1 View, Read by ED Physician, Read by Radiologist, Right Infiltrate and Left Infiltrate Diagnostic Testing: Clinical Impression(s) from Imaging Studies Chest X-Ray 05/24/21 12:20 IMPRESSION: Mild degree of increased markings in the lingular segment of the left upper lobe as well as the right lung base. Early infiltrate should be ruled out. Electronically Signed: Madi Martinez MD at 12:59 EST , Service support , EKG Initial EKG: Attestation: I personally reviewed and interpreted this EKG as follows: Interpretation: Sinus Rhythm (99) and No Acute Injury Pattern Prior EKG tracings: available for review Prior: Unchanged (12/04/2017) Discharge Plan Triage Chief Complaint: Chest Pain ED Provider: Britton Nassar Dx/Rx/DC Orders Clinical Impression: Pneumonia Instructions: ED Pneumonia (Adult) Prescriptions: New levofloxacin [levofloxacin] 500 MG tablet 500 mg PO DAILY Qty: 6 RF: 0 No Action hydroxychloroquine 200 MG tablet 200 mg PO DAILY RF: 0 lurasidone [Latuda] 60 MG tablet 60 mg PO BREAKFAST RF: 0 benztropine 0.5 MG tablet 0.5 mg PO BID RF: 0 clonazepam 0.5 MG tablet 0.25 mg PO BID RF: 0 pravastatin 10 MG tablet 10 mg PO QHS RF: 0 methotrexate sodium 2.5 MG tablet 15 mg PO QWEEK RF: 0 pantoprazole 40 MG tablet 40 mg PO DAILY RF: 0 cevimeline 30 MG capsule 30 mg PO TID RF: 0 docusate sodium [Stool Softener] 100 MG capsule 100 mg PO BID RF: 0 fluoxetine 40 MG capsule 40 mg PO DAILY RF: 0 haloperidol 5 MG tablet 5 mg PO QHS RF: 0 folic acid 1 MG tablet 1 mg PO DAILY RF: 0 ergocalciferol (vitamin D2) 50,000 UNIT capsule 50,000 unit PO QWEEK RF: 0 calcium carbonate-vitamin D3 1 EACH tablet 1 tab PO BID RF: 0 cyanocobalamin (vitamin B-12) 1,000 MCG capsule 1,000 mcg PO DAILY RF: 0 Primary Care Provider: Ethan Galvin Referrals: Ethan Galvin MD [Primary Care Provider] - 5-7 Days Disposition Disposition: Home, Self Care
[2021-05-24] MEDS: Aspirin 81 MG TAB.CHEW 324 MG PO (12:20)
--- NOTE | 2021-05-24 12:20 | RAD_ITS ---
STUDY: X-RAY CHEST REASON FOR EXAM: Female, 56 years old. Chest pain TECHNIQUE: Single AP portable view of the chest. COMPARISON: Comparison is made with prior study 12/03/2017. FINDINGS: EKG electrode are seen. Mild increased markings are seen in the lingular segment of the left upper lobe as well as at the right lung base. Early infiltrate should be ruled out. There is no demonstrated pleural abnormality. Normal size heart. Normal mediastinum and shelia. Normal visualized pulmonary arteries. There is atherosclerotic calcification of the aortic arch with tortuosity. Normal visualized thoracic spine. Normal visualized ribs, clavicles, and shoulders. There is no demonstrated abnormality of the visualized soft tissue structures of the upper abdomen. RAD/Chest 1 View (Portable) IMPRESSION: Mild degree of increased markings in the lingular segment of the left upper lobe as well as the right lung base. Early infiltrate should be ruled out. Electronically Signed: Madi Martinez MD at 12:59 EST , Service support ,
[2021-05-24 12:22] VITALS: O2SAT 94
[2021-05-24 12:25] LABS: Absolute Lymphocyte Count 1.18 X10^3/uL (0.83-4.51); Absolute Neutrophil Count 5.5 X10^3/uL (2.0-7.7); Basophil# 0.07 X10^3/uL; Eosinophil# 0.24 X10^3/uL; Eosinophils% 3.3 % (0-5); Hematocrit 36.5 % (37-47); Lymphocyte # 1.18 X10^3/ul (0.83-4.51); Lymphocyte % 16.1 % (19-41); Mean Corp Hgb Conc 32.9 g/dL (32-36); Mean Corpuscular Hgb 29.8 pg (27.0-32.0); Mean Corpuscular Volume 90.6 fL (81-99); Monocyte% 5.4 % (0-10); NRBC Flagged by Analyzer 0 % (0-5); Neutrophil # 5.45 X10^3/uL (2.7-7.7); Neutrophil % 74.1 % (47-70); Platelet Count 278 K/mm3 (150-450); RBC Distribution Width CV 13.7 % (11.6-14.6); RBC Distribution Width SD 45.7 fl (35.1-43.9); Red Blood Count 4.03 M/mm3 (4.2-5.4); White Blood Count 7.4 K/mm3 (4.4-11.0)
[2021-05-24 12:43] LABS: Anion Gap 5 (5-15); BUN 9 mg/dL (7-18); BUN/Creat Ratio 8.8 RATIO (10-20); Calcium,Total 8.9 mg/dL (8.5-10.1); Chloride 103 mmol/L (98-107); Creatinine, Serum 1.02 mg/dL (0.55-1.02); EST Glomerular Filtration Rate 59 mL/min (>60); Est Glom Filt Rate - Afr Amer 72 mL/min (>60); Estimated Creatinine Clearance 48.13 ml/min; Glucose 152 mg/dL (74-106); Sodium Level 135 mmol/L (136-145); Troponin-I HS 10 pg/mL (3.0-54.0)
[2021-05-24 13:47] VITALS: PULSE 83; RESP 11; O2SAT 96
[2021-05-24 14:12] VITALS: PULSE 84; RESP 18; O2SAT 96
[2021-05-24 14:37] LABS: Troponin-I HS 16 pg/mL (3.0-54.0)
[2021-05-24 15:04] VITALS: PULSE 79; RESP 18; O2SAT 96
[2021-05-24] MEDS: levoFLOXacin 750 MG Tablet PO (16:09)
== END 2021-05-24 16:12 | disposition home or self-care (01) ==
PROVIDERS: Emergency Provider Emergency Medicine; PCP Internal Medicine; Visit Provider Emergency Medicine
DX: J18.9 Pneumonia, unspecified organism (principal); G47.33 Obstructive sleep apnea (adult) (pediatric); E66.9 Obesity, unspecified; Z87.891 Personal history of nicotine dependence
CPT/HCPCS: 71045; 80048; 84484; 85025; 87426; 93005; 99285; A4216

== ENCOUNTER 2021-07-31 14:20 | Emergency (ER) | payer MEDICARE, MEDICAID, SELFPAY ==
[2021-07-31 14:20] VITALS: BP 137/60; PULSE 89; RESP 16; TEMP 36.6; O2SAT 98; BMI 46.7
--- NOTE | 2021-07-31 14:38 | CT_ITS ---
STUDY: CT BRAIN WITHOUT CONTRAST REASON FOR EXAM: Female, 56 years old. Confusion and memory loss. Patient has a history of lupus. RADIATION DOSAGE (If Supplied By Facility): CTDIvol = ( 44.99 ) mGy, DLP = ( 832.67 ) mGycm TECHNIQUE: Transaxial CT imaging of the brain was performed without administration of intravenous contrast material. Individualized dose optimization techniques were used for this CT. COMPARISON: No relevant priors. FINDINGS: Normal soft tissue structures. Normal calvarium. Normal size ventricles and extra-axial spaces for the patient''s age. Normal white matter tracts of the cerebral hemispheres. Normal basal ganglia and thalami. Normal brainstem. Normal cerebellum. There is no intracranial hemorrhage. There are no findings of an acute ischemic infarction. Normal visualized paranasal sinuses. CT/Brain/Head without Contrast IMPRESSION: Normal unenhanced CT scan of the brain. Electronically Signed: Madi Martinez MD at 15:26 EDT ,
--- NOTE | 2021-07-31 14:38 | EKG12_ITS ---
Test Reason : CONFUSION Blood Pressure : / mmHG Vent. Rate : 087 BPM Atrial Rate : 087 BPM P-R Int : 146 ms QRS Dur : 080 ms QT Int : 374 ms P-R-T Axes : 044 -10 004 degrees QTc Int : 450 ms Normal sinus rhythm Normal ECG Confirmed by DENNIS BURGOS, ANTIONE ([id number]), makeup editor MOY STEVENSON ([id number]) on 08/02/2021 2:14:32 PM Referred By: SOFÍA Confirmed By:RAN COLLINS MD
--- NOTE | 2021-07-31 14:40 | EDS_ITS ---
HPI History of Present Illness Chief Complaint: Confusion Detail of Chief Complaint: Memory trouble, fatigue, depression Informant: patient Narrative Narrative: Patient presents to the emergency department from home with her significant other who states that she is had difficulty with short-term memory over the last week. This has been a chronic issue for years but just significantly worse over the last week. Patient states that she just feels fatigue and just lays around often times and just feels like she has no energy. She is eating and drinking normally. She denies recent illness. She denies dysuria, urgency, or frequency. She denies any falls or head injuries. Patient does have history of depression, anxiety, and schizophrenia. She has had prior psychiatric admissions. Her significant other states that he has been working at [employer] for the last 6 months and they only have one car and oftentimes she is at home alone while he is at work. Prior similar symptoms: Yes [facility] Medical History (Updated 07/31/21 @ 18:[address] Fredo Lira, DO) Generalized anxiety disorder Hyperlipidemia Lupus (systemic lupus erythematosus) Major depressive disorder, recurrent severe without psychotic features Obstructive sleep apnea Schizophrenia Home Medications hydroxychloroquine 200 mg PO DAILY 04/30/13 [History Last Taken 12/03/17] benztropine 0.5 mg PO BID 12/03/17 [History Last Taken 12/03/17] cevimeline 30 mg PO TID 12/03/17 [History Last Taken 12/03/17] clonazepam 0.25 mg PO BID 12/03/17 [History Last Taken 12/03/17] docusate sodium [Stool Softener] 100 mg PO BID 12/03/17 [History Last Taken 12/03/17] fluoxetine 40 mg PO DAILY 12/03/17 [History Last Taken 12/03/17] folic acid 1 mg PO DAILY 12/03/17 [History Last Taken 12/03/17] haloperidol 5 mg PO QHS 12/03/17 [History Last Taken 12/02/17] lurasidone [Latuda] 60 mg PO BREAKFAST 12/03/17 [History Last Taken 12/02/17] methotrexate sodium 15 mg PO QWEEK 12/03/17 [History Last Taken 11/28/17] pantoprazole 40 mg PO DAILY 12/03/17 [History Last Taken 12/03/17] pravastatin 10 mg PO QHS 12/03/17 [History Last Taken 12/02/17] calcium carbonate-vitamin D3 1 tab PO BID 05/16/20 [History Last Taken Unknown] cyanocobalamin (vitamin B-12) 1,000 mcg PO DAILY 05/16/20 [History Last Taken Unknown] ergocalciferol (vitamin D2) 50,000 unit PO QWEEK 05/16/20 [History Last Taken Unknown] levofloxacin 500 mg PO DAILY #6 tab 05/24/21 [Rx Last Taken Unknown] cephalexin 500 mg PO Q6 #28 capsule 07/31/21 [Rx Last Taken Unknown] Allergy/AdvReac Type Severity Reaction Status Date / Time erythromycin base Allergy Anaphylaxis Verified 07/31/21 14:24 [Erythromycin Base] nitrofurantoin Allergy Anaphylaxis Verified 07/31/21 14:24 macrocrystalline [From Macrodantin] Penicillins Allergy Anaphylaxis Verified 07/31/21 14:24 codeine AdvReac Unknown Verified 07/31/21 14:24 metronidazole [From Flagyl] AdvReac Other Verified 07/31/21 14:24 Metronidazole HCl AdvReac Other Verified 07/31/21 14:24 [From Flagyl] morphine AdvReac Unknown Verified 07/31/21 14:24 Sulfa (Sulfonamide AdvReac Unknown Verified 07/31/21 14:24 Antibiotics) Surgical History Hx of cataract surgery Hx of laparoscopy Social History Smoking Status: Former smoker ROS ROS ED ROS Narrative Fatigue Constitutional Constitutional ED: Reports systems reviewed and no addt'l complaints, except as documented; Denies body ache(s), change in weight or chills Eyes Eyes: Denies acute decrease in peripheral vision, change in vision, double vision or loss of vision ENT ENT ED: Reports none; Denies ear pain, lip swelling, loss taste/smell, neck pain, otalgia or sore throat Cardiovascular Cardiovascular: Reports none; Denies abdominal pain, chest pain with activity, leg edema, lightheadedness, palpitations, rapid heart rate or syncope Respiratory/Chest Respiratory/Chest: Reports none; Denies change in mental status, dry cough, dyspnea, hemoptysis, shortness of breath at rest or shortness of breath with exertion Gastrointestinal Gastrointestinal: Reports none; Denies abdominal pain, change in stool character, diarrhea, hematemesis, hematochezia, melena, rectal bleeding or vomiting Genitourinary Genitourinary ED: Reports none; Denies abdominal discomfort, anuria, dysuria, genital pain or polyuria Musculoskeletal Musculoskeletal: Reports none; Denies arthralgias, back pain, difficulty walkin g, extremity pain, muscle weakness or myalgias Integumentary Reports none; Denies abscess or rash Neurologic Neurologic: Reports none and other Details: Confusion, short-term memory difficulty ; Denies abnormal gait, confusion, focal weakness, frequent falls, headache(s), loss of vision, numbness, paresthesias, radicular pain, vertigo or weakness Psychiatric Psychiatric: Reports systems reviewed and no addt'l complaints, except as documented, none and depression; Denies behavioral changes, confusion, dif ficulty concentrating, hallucinations, suicidal ideation, suicidal thoughts, tactile hallucinations or visual hallucinations Endocrine Endocrinology: Denies none, cold intolerance, excessive sweating, fatigue or heat intolerance Hematologic/Lymphatic Hematologic/Lymphatic: Reports none; Denies anemia, easy bleeding or easy bruising Allergic/Immunologic Allergic/Immunologic ED: Denies as per HPI, none, lip swelling, mouth swelling, throat swelling, tongue swelling or hives EXAM Physical Exam Const Vital Signs: 07/31/21 14:20 Temperature 98 F Temperature Source Temporal Pulse Rate 89 Respiratory Rate 16 Blood Pressure 137/60 H Blood Pressure Mean 85 Pulse Ox 98 Oxygen Delivery Method Room Air Positive well nourished and well developed General Appearance ED: well developed and NAD HEENT Reports TM's clear and moist mucous membranes normocephalic and atraumatic; Negative for trauma or tenderness Tympanic Membrane ED: Yes TM's clear Eyes PERRL and EOMs intact bilaterally General Eye ED: Negative for pale conjunctiva or scleral icterus Neck no lymphadenopathy, supple and no JVD General: Negative for tenderness Chest Wall inspection of chest normal and palpation of chest normal Chest: Negative for tenderness Resp normal respiratory effort and clear to auscultation bilaterally Effort and Inspection: Negative for respiratory distress or pain with movement Auscultation: Negative for rhonchi, wheezes or diminished lung sounds Cardio regular rate, regular rhythm, S1 normal heart sound, S2 normal heart sound and no murmurs Peripheral Pulses: pulses 2+ throughout GI normal to inspection, nondistended, normoactive bowel sounds, soft to palpation, non-tender, non-distended and no masses Back/Spine no CVA tenderness and no thoracic nor lumbar tenderness Extremity normal to inspection General Extremety ED: Negative for edema General Extremity: Negative for edema Neuro oriented x3, CN's II-XII intact bilaterally, no sensory deficits noted and gait normal Sensorium / Orientation: awake, alert, oriented to person, oriented to place and oriented to time Motor Exam: strength 5/5 throughout and strength abnormal Psych mental status grossly normal Skin no rashes or lesions noted and no wounds MDM MDM MDM Narrative Medical decision making narrative: IV line established on arrival. Basic labs obtained were unremarkable. CT scan of the brain without contrast was unremarkable. Urinalysis was somewhat of a dirty specimen but did show 5 and leukocyte Estrace and he 5-50 WBCs. I will cover her with Cipro for 5 days. I had social work faculty member speak with the patient and she did not feel patient needed to be emergently hospitalized for depression. I suspect there certainly is a component of depression in her symptoms. Otherwise unclear about the short-term memory loss or difficulty unless patient actually has developing dementia. Patient was arranged follow-up with counselor in 5 days. Patient also advised to follow-up with her psychiatrist. Lab Data Attestation: I reviewed the patient's lab results. Labs: Laboratory Results - last 24 hr 07/31/21 07/31/21 07/31/21 14:55 14:55 14:55 WBC 7.2 RBC 3.88 L Hgb 12.2 Hct 35.4 L MCV 91.2 MCH 31.4 MCHC 34.5 RDW Std Deviation 46.3 H RDW Coeff of Jayde 13.8 Plt Count 315 MPV 9.6 Immature Gran % (Auto) 0.400 Neut % (Auto) 60.2 Lymph % (Auto) 26.7 [place] % (Auto) 6.4 Eos % (Auto) 5.3 H Baso % (Auto) 1.0 Absolute Neuts (auto) 4.4 Absolute Lymphs (auto) 1.93 Nucleated RBC % 0 Sodium 137 Potassium 3.8 Chloride 103 Carbon Dioxide 28.0 Anion Gap 6 BUN 10 Creatinine 1.12 H Estim Creat Clear Calc 41.82 Est GFR (MDRD) Af Amer 64 Est GFR (MDRD) Non-Af 53 L BUN/Creatinine Ratio 8.9 L Glucose 129 H Calcium 9.2 Troponin I High Sens < 3 L Urine Color Urine Clarity Urine pH Ur Specific [place] Urine Protein Urine Glucose (UA) Urine Ketones Urine Occult Blood Urine Nitrite Urine Bilirubin Urine Urobilinogen Ur Leukocyte Esterase Urine RBC Urine WBC Ur Squamous Epith Cells Ur Transition Epith Cell Urine Bacteria Urine Mucus Urine Opiates Screen Urine Methadone Screen Ur Barbiturates Screen Ur Phencyclidine Scrn Ur Amphetamines Screen MDMA (Ecstasy) Screen U Benzodiazepines Scrn Urine Cocaine Screen U Cannabinoids Screen Ur Drug Screen Comment Ethyl Alcohol < 3.0 07/31/21 07/31/21 17:15 17:15 WBC RBC Hgb Hct MCV MCH MCHC RDW Std Deviation RDW Coeff of Jayde Plt Count MPV Immature Gran % (Auto) Neut % (Auto) Lymph % (Auto) [place] % (Auto) Eos % (Auto) Baso % (Auto) Absolute Neuts (auto) Absolute Lymphs (auto) Nucleated RBC % Sodium Potassium Chloride Carbon Dioxide Anion Gap BUN Creatinine Estim Creat Clear Calc Est GFR (MDRD) Af Amer Est GFR (MDRD) Non-Af BUN/Creatinine Ratio Glucose Calcium Troponin I High Sens Urine Color Yellow Urine Clarity Sl. Cloudy Urine pH 7.0 Ur Specific [place] 1.010 Urine Protein 15 H Urine Glucose (UA) Normal Urine Ketones Negative Urine Occult Blood 25 H Urine Nitrite Negative Urine Bilirubin Negative Urine Urobilinogen Normal Ur Leukocyte Esterase 500 H Urine RBC 0-5 SEEN Urine WBC 25-50 SEEN Ur Squamous Epith Cells 10-25 SEEN Ur Transition Epith Cell 0 SEEN Urine Bacteria 2+ Urine Mucus 0 SEEN Urine Opiates Screen NEGATIVE Urine Methadone Screen NEGATIVE Ur Barbiturates Screen NEGATIVE Ur Phencyclidine Scrn NEGATIVE Ur Amphetamines Screen NEGATIVE MDMA (Ecstasy) Screen POSITIVE H U Benzodiazepines Scrn NEGATIVE Urine Cocaine Screen NEGATIVE U Cannabinoids Screen NEGATIVE Ur Drug Screen Comment Ethyl Alcohol Radiography Diagnostic Testing: Clinical Impression(s) from Imaging Studies Brain CT 07/31/21 14:38 IMPRESSION: Normal unenhanced CT scan of the brain. Electronically Signed: Madi Martinez MD at 15:26 EDT , EKG Initial EKG: Attestation: I personally reviewed and interpreted this EKG as follows: Comments: Sinus rhythm with a rate of 87 bpm with no acute ST segment changes Discharge Plan Triage Chief Complaint: Confusion ED Provider: Fredo Lira Dx/Rx/DC Orders Clinical Impression: Depression, Schizophrenia, Acute confusion, UTI (urinary tract infection) Instructions: ED ALOC, ED Confusion, ED Depression, ED Schizophrenia, General, ED CYSTITIS Female Adult Prescriptions: New cephalexin [cephalexin] 500 MG capsule 500 mg PO Q6 Qty: 28 RF: 0 No Action hydroxychloroquine 200 MG tablet 200 mg PO DAILY RF: 0 lurasidone [Latuda] 60 MG tablet 60 mg PO BREAKFAST RF: 0 benztropine 0.5 MG tablet 0.5 mg PO BID RF: 0 clonazepam 0.5 MG tablet 0.25 mg PO BID RF: 0 pravastatin 10 MG tablet 10 mg PO QHS RF: 0 methotrexate sodium 2.5 MG tablet 15 mg PO QWEEK RF: 0 pantoprazole 40 MG tablet 40 mg PO DAILY RF: 0 cevimeline 30 MG capsule 30 mg PO TID RF: 0 docusate sodium [Stool Softener] 100 MG capsule 100 mg PO BID RF: 0 fluoxetine 40 MG capsule 40 mg PO DAILY RF: 0 haloperidol 5 MG tablet 5 mg PO QHS RF: 0 folic acid 1 MG tablet 1 mg PO DAILY RF: 0 ergocalciferol (vitamin D2) 50,000 UNIT capsule 50,000 unit PO QWEEK RF: 0 calcium carbonate-vitamin D3 1 EACH tablet 1 tab PO BID RF: 0 cyanocobalamin (vitamin B-12) 1,000 MCG capsule 1,000 mcg PO DAILY RF: 0 levofloxacin [levofloxacin] 500 MG tablet 500 mg PO DAILY Qty: 6 RF: 0 Primary Care Provider: Ethan Galvin Referrals: Ethan Galvin MD [Primary Care Provider] - 3-5 Days Disposition Disposition: Home, Self Care
[2021-07-31] MEDS: 0.9% Normal Saline 1,000 ML 150 ML IV (14:55)
[2021-07-31 15:13] LABS: Absolute Lymphocyte Count 1.93 X10^3/uL (0.83-4.51); Absolute Neutrophil Count 4.4 X10^3/uL (2.0-7.7); Basophil# 0.07 X10^3/uL; Eosinophil# 0.38 X10^3/uL; Eosinophils% 5.3 % (0-5); Hematocrit 35.4 % (37-47); Hemoglobin 12.2 g/dL (12.0-15.0); Lymphocyte # 1.93 X10^3/ul (0.83-4.51); Lymphocyte % 26.7 % (19-41); Mean Corp Hgb Conc 34.5 g/dL (32-36); Mean Corpuscular Hgb 31.4 pg (27.0-32.0); Mean Corpuscular Volume 91.2 fL (81-99); Mean Platelet Vol. 9.6 fl (6.2-12.0); Monocyte# 0.46 X10^3/uL; Monocyte% 6.4 % (0-10); NRBC Flagged by Analyzer 0 % (0-5); Neutrophil # 4.35 X10^3/uL (2.7-7.7); Neutrophil % 60.2 % (47-70); Platelet Count 315 K/mm3 (150-450); RBC Distribution Width CV 13.8 % (11.6-14.6); RBC Distribution Width SD 46.3 fl (35.1-43.9); Red Blood Count 3.88 M/mm3 (4.2-5.4); White Blood Count 7.2 K/mm3 (4.4-11.0)
[2021-07-31 15:29] LABS: Anion Gap 6 (5-15); BUN 10 mg/dL (7-18); BUN/Creat Ratio 8.9 RATIO (10-20); Calcium,Total 9.2 mg/dL (8.5-10.1); Chloride 103 mmol/L (98-107); Creatinine, Serum 1.12 mg/dL (0.55-1.02); EST Glomerular Filtration Rate 53 mL/min (>60); Est Glom Filt Rate - Afr Amer 64 mL/min (>60); Estimated Creatinine Clearance 41.82 ml/min; Glucose 129 mg/dL (74-106); Potassium 3.8 mmol/L (3.5-5.1); Sodium Level 137 mmol/L (136-145); Troponin-I HS < 3 pg/mL (3.0-54.0)
[2021-07-31 16:08] LABS: Alcohol, Blood (Medical)-Serum < 3.0 mg/dL
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
[2021-07-31 17:25] LABS: Mucous, Urine 0 SEEN /hpf (<or=2+)
[2021-07-31 17:33] LABS: Color, Urine Yellow (Yellow); Glucose, Dipstick Normal (Normal); Ketone-Dipstick Negative (Negative); Leukocyte Esterase-Dipstick 500 /ul (Negative); Nitrite-Dipstick Negative (Negative); Occult Blood-Urine 25 /ul (Negative); Protein-Dipstick 15 mg/dl (Negative); Urine Bilirubin Dipstick Negative (Negative); Urine Clarity Sl. Cloudy (Clear); Urine Urobilinogen Normal (Normal)
[2021-07-31 17:40] LABS: Bacteria 2+ /hpf (None Seen); Squamous Epithelial Cells - UA 10-25 SEEN /hpf (5-10); White Blood Cells 25-50 SEEN /hpf (0-5)
[2021-07-31 17:42] LABS: Red Blood Cells-Urine 0-5 SEEN /hpf (0-5)
[2021-07-31 17:43] LABS: Transitional Epithelial - Ur 0 SEEN /hpf (0-5)
[2021-07-31 17:45] LABS: Amphetamine Urine VISTA NEGATIVE (<1000 ng/mL); Barbiturate Urine VISTA NEGATIVE (< 200 ng/mL); Benzodiazepine Urine VISTA NEGATIVE (< 200 ng/mL); Cocaine Urine VISTA NEGATIVE (< 300 ng/mL); Ecstacy Urine VISTA POSITIVE (< 500 ng/mL); Methadone Urine VISTA NEGATIVE (< 300 ng/mL); PCP Urine VISTA NEGATIVE (< 25 ng/mL); THC Urine VISTA NEGATIVE (< 50 ng/mL); Vista UDS pH Range 7
[2021-07-31] MEDS: Ciprofloxacin 500 MG Tablet PO (18:09)
[2021-07-31 18:17] VITALS: BP 129/70
== END 2021-07-31 18:18 | disposition home or self-care (01) ==
PROVIDERS: Emergency Provider Emergency Medicine; PCP Internal Medicine; Visit Provider Emergency Medicine
DX: N39.0 Urinary tract infection, site not specified (principal); F20.9 Schizophrenia, unspecified; F33.2 Major depressive disorder, recurrent severe without psychotic features; F41.1 Generalized anxiety disorder; E78.5 Hyperlipidemia, unspecified; Z79.899 Other long term (current) drug therapy; Z87.891 Personal history of nicotine dependence
CPT/HCPCS: 70450; 80048; 80307; 81001; 82077; 84484; 85025; 93005; 96360; 96361; 99285; J7030; A4216

== ENCOUNTER 2021-11-30 09:59 | Emergency (ER) | payer MEDICARE, MEDICAID, SELFPAY ==
[2021-11-30 10:00] VITALS: BP 165/100; PULSE 97; RESP 20; TEMP 36.6; O2SAT 96; BMI 46.6
--- NOTE | 2021-11-30 10:15 | EDS_ITS ---
HPI History of Present Illness Chief Complaint: Shortness of Breath Informant: patient Onset/Context/Timing Onset: Today Context: gradual Timing: Continuous Current Severity: Mild Maximum Severity: Mild Worsened by: Nothing Relieved by: Nothing Associated Symptoms cough; Negative for rhinorrhea, post nasal drip, ear pain, fever, sore throat, subjective, chills, sweats, clear sputum, white sputum, yellow sputum or green sputum Chest Pain: Positive for None Narrative Narrative: 56-year-old Female history of lupus and sleep apnea and schizophrenia. States that she feels like she has upper respiratory symptoms and mild shortness of breath today. Mild nausea. No vomiting or diarrhea. No dysuria. Denies any fever. Denies any chest pain. Nonproductive cough. No hemoptysis. recently tested positive for COVID she tested negative at home in the last several days. PE Risk Factors: Negative for Cancer, OCP + Smoking + > 35, Prior DVT or PE, Recent immobilization, Recent surgery or Recent travel Prior similar symptoms: Yes Recent Illness/Hospitalization: No PFSH [facility] Medical History (Updated 11/30/21 @ 11:[address] Yuval Jeffrey MD) Generalized anxiety disorder Glaucoma Hyperlipidemia Lupus (systemic lupus erythematosus) Major depressive disorder, recurrent severe without psychotic features Obstructive sleep apnea Schizophrenia Home Medications hydroxychloroquine 200 mg tablet 200 mg PO DAILY 04/30/13 [History Last Taken 12/03/17] benztropine 0.5 mg tablet 0.5 mg PO BID 12/03/17 [History Last Taken 12/03/17] cevimeline 30 mg capsule 30 mg PO TID 12/03/17 [History Last Taken 12/03/17] clonazepam 0.5 mg tablet 0.5 mg PO BID 12/03/17 [History Last Taken 12/03/17] docusate sodium 100 mg capsule (Stool Softener) 100 mg PO BID 12/03/17 [History Last Taken 12/03/17] fluoxetine 40 mg capsule 40 mg PO DAILY 12/03/17 [History Last Taken 12/03/17] folic acid 1 mg tablet 1 mg PO DAILY 12/03/17 [History Last Taken 12/03/17] haloperidol 5 mg tablet 5 mg PO QHS 12/03/17 [History Last Taken 12/02/17] lurasidone 60 mg tablet (Latuda) 60 mg PO BREAKFAST 12/03/17 [History Last Taken 12/02/17] methotrexate sodium 2.5 mg tablet 15 mg PO QWEEK 12/03/17 [History Last Taken 11/28/17] pantoprazole 40 mg tablet,delayed release 40 mg PO DAILY 12/03/17 [History Last Taken 12/03/17] pravastatin 10 mg tablet 10 mg PO QHS CHOLESTEROL 12/03/17 [History Last Taken 12/02/17] calcium carbonate 600 mg-vitamin D3 10 mcg (400 unit) tablet 1 tab PO BID 05/16/20 [History Last Taken Unknown] cyanocobalamin (vitamin B-12) 1,000 mcg capsule 1,000 mcg PO DAILY 05/16/20 [History Last Taken Unknown] ergocalciferol (vitamin D2) 1,250 mcg (50,000 unit) capsule 50,000 unit PO QWEEK 05/16/20 [History Last Taken Unknown] levofloxacin 500 mg tablet 500 mg PO DAILY #6 tabs 05/24/21 [Rx Last Taken Unknown] cephalexin 500 mg capsule 500 mg PO Q6 #28 CAPSULES 07/31/21 [Rx Last Taken Unknown] nirmatrelvir 300 mg (150 mg x2)-ritonavir 100 mg tablet,dose pack(EUA) (Paxlovid) See Rx Instructions PO .COMPLEX 5 days #10 tabs 11/30/21 [Rx Last Taken Unknown] Allergy/AdvReac Type Severity Reaction Status Date / Time erythromycin base Allergy Anaphylaxis Verified 07/31/21 14:24 [Erythromycin Base] nitrofurantoin Allergy Anaphylaxis Verified 07/31/21 14:24 macrocrystalline [From Macrodantin] Penicillins Allergy Anaphylaxis Verified 07/31/21 14:24 codeine AdvReac Unknown Verified 07/31/21 14:24 metronidazole [From Flagyl] AdvReac Other Verified 07/31/21 14:24 Metronidazole HCl AdvReac Other Verified 07/31/21 14:24 [From Flagyl] morphine AdvReac Unknown Verified 07/31/21 14:24 Sulfa (Sulfonamide AdvReac Unknown Verified 07/31/21 14:24 Antibiotics) Surgical History Hx of cataract surgery Hx of laparoscopy Social History Smoking Status: Former smoker ROS ROS ED ROS Narrative Nonproductive cough. Shortness of breath. Review of Systems ROS Unobtainable: Denies due to encephalopathy Constitutional Constitutional ED: Denies chills Eyes Eyes: Denies blurry vision ENT ENT ED: Denies ear pain Cardiovascular Cardiovascular: Denies chest pain Respiratory/Chest Respiratory/Chest: Denies cough Gastrointestinal Gastrointestinal: Denies abdominal pain Genitourinary Genitourinary ED: Denies dysuria Musculoskeletal Musculoskeletal: Denies arthralgias Integumentary Denies abscess Neurologic Neurologic: Denies headache(s) Psychiatric Psychiatric: Denies anxiety Endocrine Endocrinology: Denies cold intolerance Hematologic/Lymphatic Hematologic/Lymphatic: Denies easy bleeding Allergic/Immunologic Allergic/Immunologic ED: Denies mouth swelling EXAM Physical Exam Narrative Exam Narrative: Well-appearing 56-year-old female. Vital signs stable afebrile. Pulse ox 96% on room air no signs hypoxia. She does not look septic or toxic. H EENT exam unremarkable. Moist Riis membranes. Posterior pharynx unremarkable. Neck nontender. No JVD. No lymphadenopathy. Lungs clear to auscultation bilaterally. No rales rhonchi nor wheezing. Heart regular rhythm rate about 97 no murmur. Abdomen soft nontender. Moving all 4 extremities. Calves are nontender without edema or cords. Neurologically she is awake and alert. Const Vital Signs: 11/30/21 10:00 11/30/21 10:19 Temperature 98 F Temperature Source Temporal Pulse Rate 97 Respiratory Rate 20 H Respiratory Effort Short of Breath Respiratory Depth Normal Respiratory Pattern Normal Blood Pressure 165/100 H Blood Pressure Mean 121 Pulse Ox 96 Oxygen Delivery Method Room Air Positive well nourished, well developed and obese; Negative for cachectic, contractures or unkempt General Appearance ED: well developed; Negative for unkempt, cachectic, contractures or pallor Nutritional Appearance: obese; Negative for cachectic HEENT Reports moist mucous membranes; Denies dry mucous membranes atraumatic; Negative for trauma or tenderness Mouth ED: No dry mucous membranes Mouth: No dry mucous membranes Eyes PERRL and EOMs intact bilaterally General Eye ED: Negative for pale conjunctiva or scleral icterus Neck no lymphadenopathy, supple, no meningeal signs and no JVD General: Negative for tenderness Lymph Lymphatic: Negative for other Resp normal respiratory effort and clear to auscultation bilaterally Effort and Inspection: Negative for pain with movement Auscultation: Negative for rales, rhonchi or wheezes Cardio regular rate, regular rhythm, S1 normal heart sound, S2 normal heart sound and no murmurs Rate: Negative for bradycardia or tachycardic Rhythm: Negative for abnormal rhythm GI non-tender, non-distended and no masses Inspection: Negative for other Auscultation: normoactive bowel sounds Palpation: soft; Negative for tender Bladder / Kidney Exam: No other Back/Spine no CVA tenderness and normal to inspection General Back: Negative for CVA tenderness or tenderness Extremity normal to inspection General Extremety ED: Negative for edema, tenderness or other findings General Extremity: Negative for edema or other findings Neuro oriented x3 and CN's II-XII intact bilaterally Sensorium / Orientation: alert, oriented to person, oriented to place and oriented to time Speech: speech normal Motor Exam: strength 5/5 throughout Psych mental status grossly normal Appearance: Negative for unkempt Attitude: No agitated Mood & Affect: Negative for depressed or anxious Skin no wounds General Skin Exam: Negative for jaundice or pallor Lesions: no lesions Rashes: no rashes Trauma: Negative for abrasion MDM MDM MDM Narrative Medical decision making narrative: 56-year-old with URI symptoms and subjective shortness of breath. Exam benign. Obtain a COVID test and chest x-ray. Clinically she has a URI it may or may not be COVID. The likelihood is high due to her recently testing positive for COVID. Repeat exam patient is doing well at 11 AM patient denies discussed options she has been vaccinated twice and has had 1 booster against COVID. She did want me to write her prescription for Paxlovid. She will quarantine at least the next 5 days if longer for symptoms not resolved. She does not work outside the home. Her is currently out of work because he is COVID-positive also. Lab Data Lab results narrative: Rapid COVID antigen is positive. Radiography Chest X-Ray - ED: 1 View, Read by ED Physician, Heart, Lungs, Mediastinum, Bony Structures, No Acute Disease and Chronic Changes Diagnostic Testing: Clinical Impression(s) from Imaging Studies Chest X-Ray 11/30/21 10:35 IMPRESSION: No acute cardiopulmonary process. Electronically Signed: Evon Flowers MD at 10:48 EDT , Chest x-ray, portable, single view interpreted by myself and the radiologist shows no acute abnormality. Compared to her prior film unchanged slightly different technique. Discharge Plan Triage Chief Complaint: Shortness of Breath ED Provider: Yuval Jeffrey Dx/Rx/DC Orders Clinical Impression: COVID-19, History of lupus Instructions: Human Coronaviruses Prescriptions: New Paxlovid (EUA) 300 mg (150 mg x 2)-100 mg tablets,dose pack See Rx Instructions .ROUTE .COMPLEX 5 Days Qty: 10 0RF Rx Instructions: take TWO 150 mg tablets of nirmatrelvir with ONE 100 mg tablet of ritonavir twice daily for 5 days No Action hydroxychloroquine 200 MG tablet 200 mg PO DAILY Latuda 60 MG tablet 60 mg PO BREAKFAST benztropine 0.5 MG tablet 0.5 mg PO BID clonazepam 0.5 MG tablet 0.5 mg PO BID Label Comments: pravastatin 10 MG tablet 10 mg PO QHS Label Comments: methotrexate sodium 2.5 MG tablet 15 mg PO QWEEK Label Comments: pantoprazole 40 MG tablet 40 mg PO DAILY Label Comments: cevimeline 30 MG capsule 30 mg PO TID Label Comments: docusate sodium [Stool Softener] 100 MG capsule 100 mg PO BID fluoxetine 40 MG capsule 40 mg PO DAILY Label Comments: haloperidol 5 MG tablet 5 mg PO QHS Label Comments: folic acid 1 MG tablet 1 mg PO DAILY ergocalciferol (vitamin D2) 50,000 UNIT capsule 50,000 unit PO QWEEK calcium carbonate-vitamin D3 1 EACH tablet 1 tab PO BID cyanocobalamin (vitamin B-12) 1,000 MCG capsule 1,000 mcg PO DAILY levofloxacin [levofloxacin] 500 MG tablet 500 mg PO DAILY Qty: 6 0RF cephalexin [cephalexin] 500 MG capsule 500 mg PO Q6 Qty: 28 0RF Primary Care Provider: Ethan Galvin Referrals: Ethan Galvin MD [Primary Care Provider] - 10-14 Days if not better Activity Restrictions/Additional Instructions: You have COVID-19. With your prior vaccinations and boosters you should get better. Plenty of fluids and rest. Tylenol for body aches. Begin your prescription of the pack Slo-Bid today. Follow-up with your doctor if not improving. Quarantine for at least the next 5 days. Disposition Disposition: Home, Self Care
[2021-11-30 10:19] VITALS: O2SAT 95
--- NOTE | 2021-11-30 10:35 | RAD_ITS ---
STUDY: X-RAY CHEST REASON FOR EXAM: Female, 56 years old. Cough TECHNIQUE: Single frontal view of the chest. COMPARISON: 05/24/2021 FINDINGS: There is no new focal consolidation. There is a vague opacity within the right lower lung that is grossly stable and appears to be a confluence of shadows. Normal size heart. Normal mediastinum and shelia. Normal visualized pulmonary arteries. Normal visualized aortic arch and descending thoracic aorta. Normal visualized thoracic spine. Normal visualized ribs, clavicles, and shoulders. There is no demonstrated abnormality of the visualized soft tissue structures of the upper abdomen. RAD/Chest 1 View (Portable) IMPRESSION: No acute cardiopulmonary process. Electronically Signed: Evon Flowers MD at 10:48 EDT ,
== END 2021-11-30 11:13 | disposition home or self-care (01) ==
PROVIDERS: Emergency Provider Emergency Medicine; PCP Internal Medicine; Visit Provider Emergency Medicine
DX: U07.1 COVID-19 (principal); M32.9 Systemic lupus erythematosus, unspecified; F33.2 Major depressive disorder, recurrent severe without psychotic features; Z68.42 Body mass index [BMI] 45.0-49.9, adult; F41.1 Generalized anxiety disorder; E78.5 Hyperlipidemia, unspecified; E66.9 Obesity, unspecified; Z79.899 Other long term (current) drug therapy; Z87.891 Personal history of nicotine dependence
CPT/HCPCS: 71045; 87811; 99282

== ENCOUNTER 2024-05-03 10:29 | Emergency (ER) | payer MEDICARE, MEDICAID, SELFPAY ==
[2024-05-03 10:30] VITALS: BP 136/113; BP 141/110; PULSE 81; PULSE 98; RESP 16; TEMP 36.6; O2SAT 97; O2SAT 99
[2024-05-03 10:34] VITALS: BMI 45.2
--- NOTE | 2024-05-03 10:38 | EX.ED.VIS.HA ---
HPI History of Present Illness Chief Complaint: Headache Informant: patient Onset/Context/Timing Onset: Days Context: Gradual Timing: Continuous Quality -Headache: Positive for Other (Aching, heavy) Location: Right side and top of head Worsened by: Palpation Relieved by: Nothing Associated Symptoms/Injury Associated Symptoms: Positive for Nausea and Tingling; Negative for Fever, Vomiting, Sore Throat, Sinus Pressure, Numbness, Preceding Aura, Visual Changes, Blurred Vision, Photophobia or Visual Loss Narrative Narrative: Patient presents with a headache that has been getting worse over the past few days. Patient states it is gradually getting worse. Patient states it is constant. Patient states it is worse over the right side of her head and over the top of her head. Patient describes it as aching and heavy. Patient states it is worse with palpation. Patient states nothing seems to help with it. Patient admits to some nausea but denies any vomiting. Patient denies any fevers. Patient denies any sinus pressure. Patient does admit to some tingling on the top of her head. Patient denies any visual changes. Patient denies any photophobia. Patient does admit to some subjective chills. [facility] Medical History Glaucoma Major depressive disorder, recurrent severe without psychotic features Generalized anxiety disorder Schizophrenia Hyperlipidemia Obstructive sleep apnea Lupus (systemic lupus erythematosus) Home Medications ?Medication ?Instructions ?Recorded ?Last Taken ?Type hydroxychloroquine 200 mg tablet 200 mg PO DAILY 04/30/13 12/03/17 History benztropine 0.5 mg tablet 0.5 mg PO BID 12/03/17 12/03/17 History cevimeline 30 mg capsule 30 mg PO TID 12/03/17 12/03/17 History clonazepam 0.5 mg tablet 0.5 mg PO BID 12/03/17 12/03/17 History docusate sodium 100 mg capsule 100 mg PO BID 12/03/17 12/03/17 History (Stool Softener) fluoxetine 40 mg capsule 40 mg PO DAILY 12/03/17 12/03/17 History folic acid 1 mg tablet 1 mg PO DAILY 12/03/17 12/03/17 History haloperidol 5 mg tablet 5 mg PO QHS 12/03/17 12/02/17 History lurasidone 60 mg tablet (Latuda) 60 mg PO BREAKFAST 12/03/17 12/02/17 History methotrexate sodium 2.5 mg tablet 15 mg PO QWEEK 12/03/17 11/28/17 History pantoprazole 40 mg tablet,delayed 40 mg PO DAILY 12/03/17 12/03/17 History release pravastatin 10 mg tablet 10 mg PO QHS CHOLESTEROL 12/03/17 12/02/17 History calcium 600 mg (as 1 tab PO BID 05/16/20 Unknown History carbonate)-vitamin D3 10 mcg (400 unit) tablet cyanocobalamin (vitamin B-12) 1,000 mcg PO DAILY 05/16/20 Unknown History 1,000 mcg capsule ergocalciferol (vitamin D2) 1,250 50,000 unit PO QWEEK 05/16/20 Unknown History mcg (50,000 unit) capsule levofloxacin 500 mg tablet 500 mg PO DAILY #6 tabs 05/24/21 Unknown Rx cephalexin 500 mg capsule 500 mg PO Q6 #28 CAPSULES 07/31/21 Unknown Rx nirmatrelvir 300 mg (150 mg See Rx Instructions PO .COMPLEX 5 11/30/21 Unknown Rx x2)-ritonavir 100 mg tablet,dose days #10 tabs pack (Paxlovid) Allergy/AdvReac Type Severity Reaction Status Date / Time erythromycin base Allergy Anaphylaxis Verified 05/03/24 10:30 (Erythromycin Base) nitrofurantoin Allergy Anaphylaxis Verified 05/03/24 10:30 macrocrystalline (From Macrodantin) Penicillins Allergy Anaphylaxis Verified 05/03/24 10:30 codeine AdvReac Unknown Verified 05/03/24 10:30 metronidazole (From Flagyl) AdvReac Other Verified 05/03/24 10:30 Metronidazole HCl (From AdvReac Other Verified 05/03/24 10:30 Flagyl) morphine AdvReac Unknown Verified 05/03/24 10:30 Sulfa (Sulfonamide AdvReac Unknown Verified 05/03/24 10:30 Antibiotics) Surgical History Hx of laparoscopy Hx of cataract surgery Social History Smoking Status: Former smoker ROS ROS ED Constitutional Constitutional ED: Reports chills and subjective; Denies fever(s) Eyes Eyes: Denies blurry vision or change in vision ENT ENT ED: Denies rhinorrhea or sore throat Cardiovascular Cardiovascular: Denies chest pain or palpitations Respiratory/Chest Respiratory/Chest: Reports dyspnea; Denies cough Gastrointestinal Gastrointestinal: Reports nausea; Denies vomiting Genitourinary Genitourinary ED: Reports urinary frequency; Denies dysuria or hematuria Musculoskeletal Musculoskeletal: Reports neck pain; Denies back pain Integumentary Reports rash; Denies abscess Neurologic Neurologic: Reports headache(s); Denies weakness Allergic/Immunologic Allergic/Immunologic ED: Denies mouth swelling or urticaria EXAM Physical Exam Const Vital Signs: 05/03/24 10:30 05/03/24 10:30 05/03/24 12:30 Temperature 98 F Temperature Source Temporal Pulse Rate 98 81 89 Respiratory Rate 16 16 18 Blood Pressure 141/110 H 136/113 H 118/44 L Blood Pressure Mean 120 120 68 Pulse Ox 99 97 99 Oxygen Delivery Method Room Air Room Air Room Air 05/03/24 14:00 Temperature Temperature Source Pulse Rate 98 Respiratory Rate 15 Blood Pressure 150/79 H Blood Pressure Mean 102 Pulse Ox 99 Oxygen Delivery Method Room Air Positive well nourished and well developed General Appearance ED: well developed and NAD HEENT Reports normocephalic and moist mucous membranes atraumatic; Negative for tenderness Neck supple, no meningeal signs and no JVD Neck Narrative: There is mild tenderness over the cervical paraspinal muscles. There is good range of motion of the cervical spine. Resp normal respiratory effort and clear to auscultation bilaterally Cardio regular rate and regular rhythm GI non-tender and non-distended Palpation: soft Neuro oriented x3, CN's II-XII intact bilaterally and no sensory deficits noted [place] Coma Scale: document GCS findings Spontaneous Obeys Commands Oriented 15 Sensorium / Orientation: awake and alert Speech: speech normal Motor Exam: strength 5/5 throughout Psych mental status grossly normal MDM MDM MDM Narrative Medical decision making narrative: Differential diagnosis includes tension headache, migraine headache, intracranial bleeding, sinusitis, cervical strain, and electrolyte abnormality. CT scan of the brain will be obtained to assess for intracranial bleeding. CBC will be obtained to assess for leukocytosis and anemia. Basic metabolic profile will be obtained to assess for electrolyte abnormality and renal function. Lab Data Attestation: I reviewed the patient's lab results. Lab results narrative: CBC was reviewed and was within normal limits. Basic metabolic profile was reviewed and was within normal limits. COVID-19 PCR was reviewed and was negative. Influenza PCR was reviewed and was negative for influenza A and influenza B. RSV PCR was reviewed and was negative. Labs: Laboratory Results - last 24 hr 05/03/24 11:04 WBC 8.8 RBC 4.55 Hgb 13.3 Hct 40.6 MCV 89.2 MCH 29.2 MCHC 32.8 RDW Std Deviation 43.5 RDW Coeff of Jayde 13.3 Plt Count 255 MPV 10.6 Immature Gran % (Auto) 0.600 Neut % (Auto) 71.9 H Lymph % (Auto) 17.9 L Iron % (Auto) 5.4 Eos % (Auto) 3.2 Baso % (Auto) 1.0 Absolute Neuts (auto) 6.3 Absolute Lymphs (auto) 1.58 Nucleated RBC % 0 Sodium 136 Potassium 4.2 Chloride 105 Carbon Dioxide 24.0 Anion Gap 7 BUN 13 Creatinine 0.76 Estim Creat Clear Calc 89.62 Est GFR (MDRD) Af Amer 101 Est GFR (MDRD) Non-Af 83 BUN/Creatinine Ratio 17.2 Glucose 125 H Calcium 9.3 Radiography Diagnostic Testing: Clinical Impression(s) from Imaging Studies Brain CT 05/03/24 11:14 IMPRESSION: Normal unenhanced CT scan of the brain. Electronically Signed: Gokul Will MD at 11:55 EST , CT scan of the brain was obtained. There is no acute intracranial abnormality. This was interpreted by the radiologist and was also independently reviewed by myself. Treatment and Re-Evaluation Narrative: Patient was given IV fluids, Reglan, and Benadryl. Patient was feeling better on reevaluation. Patient was advised of her findings. Patient was instructed to drink plenty of fluids. Patient was instructed to take Tylenol or ibuprofen as needed for pain. Patient was instructed to return if worse in any way. Patient understood and was agreeable with the plan. All questions were answered. Discharge Plan Triage Chief Complaint: Headache ED Provider: Britton Nassar Dx/Rx/DC Orders Clinical Impression: Headache, Depression Instructions: ED Headache Unspecified Prescriptions: No Action hydroxychloroquine 200 MG tablet 200 mg PO DAILY Latuda 60 MG tablet 60 mg PO BREAKFAST benztropine 0.5 MG tablet 0.5 mg PO BID clonazepam 0.5 MG tablet 0.5 mg PO BID Patient Comments: pravastatin 10 MG tablet 10 mg PO QHS Patient Comments: methotrexate sodium 2.5 MG tablet 15 mg PO QWEEK Patient Comments: pantoprazole 40 MG tablet 40 mg PO DAILY Patient Comments: cevimeline 30 MG capsule 30 mg PO TID Patient Comments: docusate sodium [Stool Softener] 100 MG capsule 100 mg PO BID fluoxetine 40 MG capsule 40 mg PO DAILY Patient Comments: haloperidol 5 MG tablet 5 mg PO QHS Patient Comments: folic acid 1 MG tablet 1 mg PO DAILY ergocalciferol (vitamin D2) 50,000 UNIT capsule 50,000 unit PO QWEEK calcium carbonate-vitamin D3 1 EACH tablet 1 tab PO BID cyanocobalamin (vitamin B-12) 1,000 MCG capsule 1,000 mcg PO DAILY levofloxacin [levofloxacin] 500 MG tablet 500 mg PO DAILY Qty: 6 0RF cephalexin [cephalexin] 500 MG capsule 500 mg PO Q6 Qty: 28 0RF Paxlovid 300 mg (150 mg x 2)-100 mg tablets,dose pack See Rx Instructions .ROUTE .COMPLEX 5 Days Qty: 10 0RF Rx Instructions: take TWO 150 mg tablets of nirmatrelvir with ONE 100 mg tablet of ritonavir twice daily for 5 days Primary Care Provider: Vane Melendez Referrals: Vane Melendez MD [Primary Care Provider] - 5-7 Days Ethan Galvin MD [Med Staff - Gear Coding Machine Operator] - 5-7 Days Print Language: Brazilian Disposition Disposition: Home, Self Care
--- NOTE | 2024-05-03 11:14 | CT_ITS ---
STUDY: CT BRAIN WITHOUT CONTRAST REASON FOR EXAM: Female, 59 years old. Pain RADIATION DOSAGE (If Supplied By Facility): CTDIvol = ( 44.99 ) mGy, DLP = ( 812.98 ) mGycm TECHNIQUE: Transaxial CT imaging of the brain was performed without administration of intravenous contrast material. Individualized dose optimization techniques were used for this CT. COMPARISON: 07/31/2021 FINDINGS: Normal soft tissue structures. Normal calvarium. Normal size ventricles and extra-axial spaces for the patient''s age. Normal white matter tracts of the cerebral hemispheres. Normal basal ganglia and thalami. Normal brainstem. Normal cerebellum. There is no intracranial hemorrhage. There are no findings of an acute ischemic infarction. Normal visualized paranasal sinuses. CT/Brain/Head without Contrast IMPRESSION: Normal unenhanced CT scan of the brain. Electronically Signed: Gokul Will MD at 11:55 EST ,
[2024-05-03] MEDS: DiphenhydrAMINE 50 MG/ML Syringe 25 MG IV (11:18)
[2024-05-03] MEDS: 0.9% Normal Saline (1000mL) 1,000 ML 999 ML IV (11:18)
[2024-05-03] MEDS: Metoclopramide 10 MG/2 ML Vial IV (11:18)
[2024-05-03 11:39] LABS: Absolute Lymphocyte Count 1.58 X10^3/uL (0.83-4.51); Absolute Neutrophil Count 6.3 X10^3/uL (2.0-7.7); Basophil# 0.09 X10^3/uL; Eosinophil# 0.28 X10^3/uL; Eosinophils% 3.2 % (0-5); Hematocrit 40.6 % (37-47); Hemoglobin 13.3 g/dL (12.0-15.0); Lymphocyte # 1.58 X10^3/ul (0.83-4.51); Lymphocyte % 17.9 % (19-41); Mean Corp Hgb Conc 32.8 g/dL (32-36); Mean Corpuscular Hgb 29.2 pg (27.0-32.0); Mean Corpuscular Volume 89.2 fL (81-99); Mean Platelet Vol. 10.6 fl (6.2-12.0); Monocyte# 0.48 X10^3/uL; Monocyte% 5.4 % (0-10); NRBC Flagged by Analyzer 0 % (0-5); Neutrophil # 6.34 X10^3/uL (2.7-7.7); Neutrophil % 71.9 % (47-70); Platelet Count 255 K/mm3 (150-450); RBC Distribution Width CV 13.3 % (11.6-14.6); RBC Distribution Width SD 43.5 fl (35.1-43.9); Red Blood Count 4.55 M/mm3 (4.2-5.4); White Blood Count 8.8 K/mm3 (4.4-11.0)
[2024-05-03 12:06] LABS: Anion Gap 7 (5-15); BUN 13 mg/dL (7-18); BUN/Creat Ratio 17.2 RATIO (10-20); Calcium,Total 9.3 mg/dL (8.5-10.1); Chloride 105 mmol/L (98-107); Creatinine, Serum 0.76 mg/dL (0.55-1.02); EST Glomerular Filtration Rate 83 mL/min (>60); Est Glom Filt Rate - Afr Amer 101 mL/min (>60); Estimated Creatinine Clearance 89.62 ml/min; Glucose 125 mg/dL (74-106); Potassium 4.2 mmol/L (3.5-5.1); Sodium Level 136 mmol/L (136-145)
[2024-05-03 12:30] VITALS: BP 118/44; PULSE 89; RESP 18; O2SAT 99
[2024-05-03 14:00] VITALS: BP 150/79; PULSE 98; RESP 15; O2SAT 99
[2024-05-03 14:33] VITALS: BP 150/79; PULSE 98; RESP 15; TEMP 36.6; O2SAT 99
== END 2024-05-03 14:38 | disposition home or self-care (01) ==
PROVIDERS: Emergency Provider Emergency Medicine; PCP Family Medicine; Visit Provider Emergency Medicine
DX: R51.9 Headache, unspecified (principal); F32.A Depression, unspecified; G47.33 Obstructive sleep apnea (adult) (pediatric); Z87.891 Personal history of nicotine dependence
CPT/HCPCS: 70450; 80048; 85025; 87631; 96361; 96374; 96375; 96376; 99283; A4216

== ENCOUNTER 2024-05-16 11:48 | Emergency (ER) | payer MEDICAID, MEDICARE, SELFPAY ==
[2024-05-16 11:48] VITALS: BP 142/62; PULSE 91; RESP 16; TEMP 36.6; O2SAT 100
--- NOTE | 2024-05-16 12:51 | EX.ED.DYSGE1 ---
HPI History of Present Illness Chief Complaint: Confusion Detail of Chief Complaint: Increased confusion today. Informant: patient Onset/Context/Timing Onset: Month(s) Context: Sudden Onset Timing: Intermittent Quality: Patient states she is confused. Location: Difficult to specify Current Severity: Mild Maximum Severity: Moderate Worsened by: Nothing Relieved by: Nothing Associated Symptoms Associated Symptoms: Patient does endorse dysuria. She has had dysuria for some time as well. Narrative Narrative: Patient is a 59-year-old woman. She has history of schizophrenia, depression, lupus arrhythmia ptosis, GERD, hyperlipidemia who presents because of increased confusion today. She contacted her physician's office who is affiliated with the [facility]. Nurse on-call recommended she come to the emergency department. She called squad. Davila who brought her to the emergency department. She is presently complaining of bifrontal head discomfort. She has had intermittent occipital head discomfort. She denies double vision blurred vision loss of vision. Denies hensley ears decreased hearing. Denies trouble with speech or swallowing. She denies cardiac or respiratory symptoms. She states she has mild CHF. There is no [facility]. She believes she may have had 1 through the [facility]. Patient denies fever, chills night sweats. Patient denies chest pain, shortness of breath, or PND. She denies cough. She does endorse orthopnea. Prior similar symptoms: Yes Recent Illness/Hospitalization: No [facility] Medical History Glaucoma Major depressive disorder, recurrent severe without psychotic features Generalized anxiety disorder Schizophrenia Hyperlipidemia Obstructive sleep apnea Lupus (systemic lupus erythematosus) Home Medications ?Medication ?Instructions ?Recorded ?Last Taken ?Type hydroxychloroquine 200 mg tablet 200 mg PO DAILY 04/30/13 12/03/17 History benztropine 0.5 mg tablet 0.5 mg PO BID 12/03/17 12/03/17 History cevimeline 30 mg capsule 30 mg PO TID 12/03/17 12/03/17 History clonazepam 0.5 mg tablet 0.5 mg PO BID 12/03/17 12/03/17 History docusate sodium 100 mg capsule 100 mg PO BID 12/03/17 12/03/17 History (Stool Softener) fluoxetine 40 mg capsule 40 mg PO DAILY 12/03/17 12/03/17 History folic acid 1 mg tablet 1 mg PO DAILY 12/03/17 12/03/17 History haloperidol 5 mg tablet 5 mg PO QHS 12/03/17 12/02/17 History lurasidone 60 mg tablet (Latuda) 60 mg PO BREAKFAST 12/03/17 12/02/17 History methotrexate sodium 2.5 mg tablet 15 mg PO QWEEK 12/03/17 11/28/17 History pantoprazole 40 mg tablet,delayed 40 mg PO DAILY 12/03/17 12/03/17 History release pravastatin 10 mg tablet 10 mg PO QHS CHOLESTEROL 12/03/17 12/02/17 History calcium 600 mg (as 1 tab PO BID 05/16/20 Unknown History carbonate)-vitamin D3 10 mcg (400 unit) tablet cyanocobalamin (vitamin B-12) 1,000 mcg PO DAILY 05/16/20 Unknown History 1,000 mcg capsule ergocalciferol (vitamin D2) 1,250 50,000 unit PO QWEEK 05/16/20 Unknown History mcg (50,000 unit) capsule levofloxacin 500 mg tablet 500 mg PO DAILY #6 tabs 05/24/21 Unknown Rx cephalexin 500 mg capsule 500 mg PO Q6 #28 CAPSULES 07/31/21 Unknown Rx nirmatrelvir 300 mg (150 mg See Rx Instructions PO .COMPLEX 5 11/30/21 Unknown Rx x2)-ritonavir 100 mg tablet,dose days #10 tabs pack (Paxlovid) doxycycline monohydrate 100 mg 100 mg PO BID #14 CAPSULES 05/16/24 Unknown Rx capsule Allergy/AdvReac Type Severity Reaction Status Date / Time erythromycin base Allergy Anaphylaxis Verified 05/16/24 11:50 (Erythromycin Base) nitrofurantoin Allergy Anaphylaxis Verified 05/16/24 11:50 macrocrystalline (From Macrodantin) Penicillins Allergy Anaphylaxis Verified 05/16/24 11:50 codeine AdvReac Unknown Verified 05/16/24 11:50 metronidazole (From Flagyl) AdvReac Other Verified 05/16/24 11:50 Metronidazole HCl (From AdvReac Other Verified 05/16/24 11:50 Flagyl) morphine AdvReac Unknown Verified 05/16/24 11:50 Sulfa (Sulfonamide AdvReac Unknown Verified 05/16/24 11:50 Antibiotics) Surgical History Hx of laparoscopy Hx of cataract surgery Social History Smoking Status: Former smoker ROS ROS ED Constitutional Constitutional ED: Denies chills, fever(s), subjective, sweats or weight loss Eyes Eyes: Denies blurry vision or change in vision ENT ENT ED: Denies ear pain, rhinorrhea or sore throat Cardiovascular Cardiovascular: Reports orthopnea; Denies chest pain, palpitations or paroxysmal nocturnal dyspnea Respiratory/Chest Respiratory/Chest: Reports orthopnea; Denies cough, dyspnea, dyspnea on exertion or paroxysmal nocturnal dyspnea Gastrointestinal Gastrointestinal: Denies abdominal pain, nausea or vomiting Genitourinary Genitourinary ED: Reports dysuria and urinary frequency; Denies hematuria Musculoskeletal Musculoskeletal: Denies arthralgias, back pain or myalgias Integumentary Denies rash Neurologic Neurologic: Reports headache(s) and weakness; Denies paresthesias Psychiatric Psychiatric: Denies anxiety or depression Endocrine Endocrinology: Denies cold intolerance or heat intolerance Hematologic/Lymphatic Hematologic/Lymphatic: Reports systems reviewed and no addt'l complaints, except as documented EXAM Physical Exam Const Vital Signs: 05/16/24 11:48 05/16/24 13:48 Temperature 97.8 F Temperature Source Oral Pulse Rate 91 82 Respiratory Rate 16 18 Blood Pressure 142/62 H 145/75 H Blood Pressure Mean 88 98 Pulse Ox 100 98 Oxygen Delivery Method Room Air Room Air Positive well nourished and well developed General Appearance ED: well developed and NAD; Negative for cyanotic, diaphoretic or pallor HEENT Reports moist mucous membranes HEENT Narrative: Head is atraumatic normocephalic. Ears normal. TMs normal. Nares patent. Posterior pharynx out erythema or exudate. Uvula midline. There is no tenderness to percussion of the frontal, ethmoid or maxillary sinuses. Eyes PERRL and EOMs intact bilaterally Eyes Narrative: There is no nystagmus. General Eye ED: Negative for pale conjunctiva or scleral icterus Neck no lymphadenopathy, supple and no JVD Neck Narrative: There is no carotid bruit. Chest Wall inspection of chest normal and palpation of chest normal Resp normal respiratory effort and clear to auscultation bilaterally Cardio regular rate, regular rhythm, S1 normal heart sound, S2 normal heart sound and no murmurs GI normal to inspection, nondistended, normoactive bowel sounds, non-tender, non-distended and no masses; Negative for hepatosplenomegaly Back/Spine no CVA tenderness Extremity normal to inspection General Extremety ED: Negative for edema or tenderness General Extremity: Negative for edema Neuro oriented x3, CN's II-XII intact bilaterally and no sensory deficits noted Neuro Narrative: Patient is awake. She is slightly slow to answer questions. She answers questions appropriately. Motor Exam: strength 5/5 throughout Psych Mood & Affect: depressed Skin no rashes or lesions noted, no wounds and skin turgor normal General Skin Exam: Negative for elasticity normal, jaundice or pallor MDM MDM MDM Narrative Medical decision making narrative: Differential is dementia, pseudodementia due to depression, metabolic or infectious cause need to rule out UTI in light of her urinary symptoms. Prior records that are available were reviewed. History & Record Review Additional record(s) reviewed:: Prior ED visit (Seen May 03, 2024 for depression. Patient was diagnosed with COVID-19 November 30, 2021. Patient had acute confusion July 31, 2021. She was discharged to home. She was diagnosed with pneumonia May 2021.) and Prior labs Lab Data Attestation: I reviewed the patient's lab results. Lab results narrative: CBC is normal. Competence metabolic panel reveals mild elevation in glucose of 140 with normal CO2 anion gap. Lactate is slightly elevated 2.1. Urinalysis reveals leukoesterase and micro is negative. Labs: Laboratory Results - last 24 hr 05/16/24 05/16/24 13:00 13:08 WBC 10.9 RBC 4.27 Hgb 12.4 Hct 37.6 MCV 88.1 MCH 29.0 MCHC 33.0 RDW Std Deviation 43.6 RDW Coeff of Jayde 13.6 Plt Count 262 MPV 9.7 Immature Gran % (Auto) 0.600 Neut % (Auto) 68.5 Lymph % (Auto) 19.7 Atlantic % (Auto) 6.0 Eos % (Auto) 4.5 Baso % (Auto) 0.7 Absolute Neuts (auto) 7.5 Absolute Lymphs (auto) 2.15 Nucleated RBC % 0 Sodium 140 Potassium 4.2 Chloride 105 Carbon Dioxide 32.0 Anion Gap 3 L BUN 11 Creatinine 0.74 Est GFR (MDRD) Af Amer 103 Est GFR (MDRD) Non-Af 85 BUN/Creatinine Ratio 14.9 Glucose 140 H Lactic Acid 2.1 H* Calcium 9.5 Total Bilirubin 0.20 AST 20 ALT 22 Alkaline Phosphatase 101 Troponin I High Sens 7 Total Protein 7.6 Albumin 3.5 Globulin 4.1 Albumin/Globulin Ratio 0.9 Urine Color Yellow Urine Clarity Sl. Cloudy Urine pH 8.0 Ur Specific Dupo 1.015 Urine Protein Negative Urine Glucose (UA) Normal Urine Ketones Negative Urine Occult Blood Negative Urine Nitrite Negative Urine Bilirubin Negative Urine Urobilinogen Normal Ur Leukocyte Esterase 500 H Urine RBC 0 SEEN Urine WBC 0-5 SEEN Ur Squamous Epith Cells 0-5 SEEN Urine Bacteria 0 SEEN Urine Mucus 0 SEEN Radiography Chest X-Ray - ED: 2 View, Read by ED Physician, Normal, Heart, Mediastinum, Bony Structures and No Acute Disease (Compared to November 30, 2021. The chest x-ray is unchanged. The x-ray was a single view on November 2021.) Diagnostic Testing: Clinical Impression(s) from Imaging Studies Chest X-Ray 05/16/24 13:00 IMPRESSION: Patchy infiltrates in the right middle lobe as well as the lingular segment of the left upper lobe. Electronically Signed: Madi Martinez MD at 13:52 EST , PSI/port score is 50 points which is restratification class II. Outpatient therapy is sufficient. If 1 considers confusion by history patient's curb 65 score is 1 which is low risk. Based on my exam there is no confusion and she has a curb 65 score of 0. Patient be discharged to home on doxycycline to cover both typical atypical organism in light of her multiple antibiotic allergies which include penicillin with anaphylaxis, sulfa, erythromycin with anaphylaxis. Treatment and Re-Evaluation :: After reading the radiologist report spoke with the radiologist. After reviewing the x-rays on his monitor there is an obvious lingular infiltrate and there appears to be early patchy infiltrate on the right side. My impression was no acute findings specially since the film today is overpenetrated compared to the film that I used for comparison November 2021. Comments:: Patient did endorse being sad. I informed her that her confusion could be because of depression. She then informed me that the radiologist read the chest x-ray as positive. The x-ray was read reviewed and then I did speak with radiologist and viewed the films on his monitor which have significantly higher resolution. Because patient has significant interaction reaction with levofloxacin she was treated with doxycycline. Discharge Plan Triage Chief Complaint: Confusion ED Provider: Pascual Gallego Dx/Rx/DC Orders Clinical Impression: Lingular pneumonia, Depression, Intermittent confusion Instructions: ED Pneumonia (Adult) Prescriptions: New doxycycline monohydrate 100 mg capsule 100 mg PO BID Qty: 14 0RF No Action hydroxychloroquine 200 MG tablet 200 mg PO DAILY Latuda 60 MG tablet 60 mg PO BREAKFAST benztropine 0.5 MG tablet 0.5 mg PO BID clonazepam 0.5 MG tablet 0.5 mg PO BID Patient Comments: pravastatin 10 MG tablet 10 mg PO QHS Patient Comments: methotrexate sodium 2.5 MG tablet 15 mg PO QWEEK Patient Comments: pantoprazole 40 MG tablet 40 mg PO DAILY Patient Comments: cevimeline 30 MG capsule 30 mg PO TID Patient Comments: docusate sodium [Stool Softener] 100 MG capsule 100 mg PO BID fluoxetine 40 MG capsule 40 mg PO DAILY Patient Comments: haloperidol 5 MG tablet 5 mg PO QHS Patient Comments: folic acid 1 MG tablet 1 mg PO DAILY ergocalciferol (vitamin D2) 50,000 UNIT capsule 50,000 unit PO QWEEK calcium carbonate-vitamin D3 1 EACH tablet 1 tab PO BID cyanocobalamin (vitamin B-12) 1,000 MCG capsule 1,000 mcg PO DAILY levofloxacin [levofloxacin] 500 MG tablet 500 mg PO DAILY Qty: 6 0RF cephalexin [cephalexin] 500 MG capsule 500 mg PO Q6 Qty: 28 0RF Paxlovid 300 mg (150 mg x 2)-100 mg tablets,dose pack See Rx Instructions .ROUTE .COMPLEX 5 Days Qty: 10 0RF Rx Instructions: take TWO 150 mg tablets of nirmatrelvir with ONE 100 mg tablet of ritonavir twice daily for 5 days Primary Care Provider: Ethan Galvin Referrals: Vane Melendez MD [Non-Staff] - 3-5 Days Print Language: Macanese Disposition Disposition: Home, Self Care
--- NOTE | 2024-05-16 13:00 | RAD_ITS ---
STUDY: X-RAY CHEST REASON FOR EXAM: Female, 59 years old. Bilateral adventitial breath sounds and two-pillow TECHNIQUE: PA and lateral views of the chest. COMPARISON: Comparison is made with prior study dated November 30, 2021. FINDINGS: Patchy infiltrates are seen in the right middle lobe as well as in the lingular segment of the left upper lobe. There is no demonstrated pleural abnormality. Normal size heart. Normal mediastinum and shelia. Normal visualized pulmonary arteries. Normal visualized aortic arch and descending thoracic aorta. There are degenerative changes of the visualized thoracic spine. Normal visualized ribs, clavicles, and shoulders. There is no demonstrated abnormality of the visualized soft tissue structures of the upper abdomen. RAD/Chest PA and Lateral IMPRESSION: Patchy infiltrates in the right middle lobe as well as the lingular segment of the left upper lobe. Electronically Signed: Madi Martinez MD at 13:52 EST ,
[2024-05-16 13:13] LABS: Bacteria 0 SEEN /hpf (None Seen); Mucous, Urine 0 SEEN /hpf (<or=2+); Red Blood Cells-Urine 0 SEEN /hpf (0-5)
[2024-05-16 13:14] LABS: Absolute Lymphocyte Count 2.15 X10^3/uL (0.83-4.51); Absolute Neutrophil Count 7.5 X10^3/uL (2.0-7.7); Basophil# 0.08 X10^3/uL; Basophil% 0.7 % (0-1); Eosinophil# 0.49 X10^3/uL; Eosinophils% 4.5 % (0-5); Hematocrit 37.6 % (37-47); Hemoglobin 12.4 g/dL (12.0-15.0); Lymphocyte # 2.15 X10^3/ul (0.83-4.51); Lymphocyte % 19.7 % (19-41); Mean Corpuscular Volume 88.1 fL (81-99); Mean Platelet Vol. 9.7 fl (6.2-12.0); Monocyte# 0.65 X10^3/uL; NRBC Flagged by Analyzer 0 % (0-5); Neutrophil # 7.48 X10^3/uL (2.7-7.7); Neutrophil % 68.5 % (47-70); Platelet Count 262 K/mm3 (150-450); RBC Distribution Width CV 13.6 % (11.6-14.6); RBC Distribution Width SD 43.6 fl (35.1-43.9); Red Blood Count 4.27 M/mm3 (4.2-5.4); White Blood Count 10.9 K/mm3 (4.4-11.0)
[2024-05-16 13:17] LABS: Color, Urine Yellow (Yellow); Glucose, Dipstick Normal (Normal); Ketone-Dipstick Negative (Negative); Leukocyte Esterase-Dipstick 500 /ul (Negative); Nitrite-Dipstick Negative (Negative); Occult Blood-Urine Negative /ul (Negative); Protein-Dipstick Negative (Negative); Specific Gravity, Urine 1.015 (1.002-1.030); Urine Bilirubin Dipstick Negative (Negative); Urine Clarity Sl. Cloudy (Clear); Urine Urobilinogen Normal (Normal)
[2024-05-16 13:25] LABS: Squamous Epithelial Cells - UA 0-5 SEEN /hpf (5-10); White Blood Cells 0-5 SEEN /hpf (0-5)
[2024-05-16 13:30] LABS: ALB/GLOB Ratio 0.9 RATIO (0.9-2.4); AST(SGOT) 20 U/L (15-37); Alanine Aminotransfer ALT/SGPT 22 U/L (13-56); Albumin, Serum 3.5 g/dL (3.2-5.0); Alkaline Phosphatase 101 U/L (45-117); Anion Gap 3 (5-15); BUN 11 mg/dL (7-18); BUN/Creat Ratio 14.9 RATIO (10-20); Calcium,Total 9.5 mg/dL (8.5-10.1); Chloride 105 mmol/L (98-107); Creatinine, Serum 0.74 mg/dL (0.55-1.02); EST Glomerular Filtration Rate 85 mL/min (>60); Est Glom Filt Rate - Afr Amer 103 mL/min (>60); Globulin 4.1 g/dL (2.2-4.2); Glucose 140 mg/dL (74-106); Potassium 4.2 mmol/L (3.5-5.1); Protein, Total 7.6 g/dL (6.4-8.2); Sodium Level 140 mmol/L (136-145); Troponin-I HS 7 pg/mL (3.0-54.0)
[2024-05-16 13:37] LABS: Lactic Acid 2.1 mmol/L (0.4-1.9)
[2024-05-16 13:48] VITALS: BP 145/75; PULSE 82; RESP 18; O2SAT 98
[2024-05-16 15:00] VITALS: BP 132/75; PULSE 88; RESP 18; O2SAT 98
[2024-05-16] MEDS: Doxycycline 100 MG CAPSULE PO (15:41)
[2024-05-16 15:44] VITALS: BP 136/77; PULSE 76; RESP 16; TEMP 36.6; O2SAT 99
[2024-05-16 17:06] LABS: Reflex Lactate? Y
== END 2024-05-16 15:45 | disposition home or self-care (01) ==
PROVIDERS: Emergency Provider Emergency Medicine; PCP Internal Medicine; Visit Provider Emergency Medicine
DX: J18.9 Pneumonia, unspecified organism (principal); F32.A Depression, unspecified; R41.0 Disorientation, unspecified; G47.33 Obstructive sleep apnea (adult) (pediatric); Z87.891 Personal history of nicotine dependence
CPT/HCPCS: 71046; 80053; 81001; 83605; 84484; 85025; 99285; A4216

== ENCOUNTER 2024-05-24 03:41 | Emergency (ER) | payer MEDICAID, MEDICARE, SELFPAY ==
[2024-05-24 03:43] VITALS: BP 139/76; PULSE 77; RESP 18; TEMP 36.7; O2SAT 98; BMI 43.7
--- NOTE | 2024-05-24 03:52 | EKG12_ITS ---
Test Reason : DYSRHYTHMIA Blood Pressure : */* mmHG Vent. Rate : 74 BPM Atrial Rate : 74 BPM P-R Int : 156 ms QRS Dur : 78 ms QT Int : 380 ms P-R-T Axes : 10 -16 -1 degrees QTcB Int : 421 ms Normal sinus rhythm Minimal voltage criteria for LVH, may be normal variant ( R in aVL ) Borderline ECG Confirmed by DENNIS BURGOS, ANTIONE ([id number]), content editor FLAKITO GEIGER ([id number]) on 05/30/2024 2:22:07 PM Referred By: BB Confirmed By: ANTIONE COLLINS MD
--- NOTE | 2024-05-24 03:53 | EDS_ITS ---
HPI History of Present Illness Chief Complaint: Anxiety Detail of Chief Complaint: chest tightness Informant: patient and EMS Narrative Narrative: Patient presented 3:30 AM by EMS after having awakened with chest tightness, which caused her to give herself a breathing treatment, which helped her discomfort. She checked her blood pressure because it had been running high for the last few days whenever she checked it with her new wrist cuff, and it was again similarly 190-200 systolic. Therefore she called the [facility] nurse line who advised her to call an ambulance come to the ER. EMS evaluated her and they were getting systolics of around 160. She states she is feeling much better with regard to the pneumonia she was recently diagnosed with and treated with antibiotics as an outpatient for, she has 1 pill left but cannot remember what the antibiotic is. Initially she states that she has been using her breathing treatments more since she was diagnosed with pneumonia, and tells me and staff that she has a history of pulmonary fibrosis as a result of Sjogren's syndrome, meanwhile apologizing that she forgot to tell the EMS personnel those details, and then adding that she also has some eczema which certainly is not an jing gency. She states that she was told by her PCP to do her breathing treatments regularly while she had pneumonia, but she was not able to schedule them throughout the day as of lately because of issues that she is not able to provide details for. When I asked her about if she had been having episodes of chest tightness while she had pneumonia, she suddenly states she does not know and is not clear what I am asking so I recapped the story that she told me, attempting to confirm the details above that she initially had told us, and now her response to this is I am sorry, I am not cognitively able to compute this, although I asked her to repeat these details within 5 minutes of her volunteering them all. [facility] Medical History Glaucoma Major depressive disorder, recurrent severe without psychotic features Generalized anxiety disorder Schizophrenia Hyperlipidemia Obstructive sleep apnea Lupus (systemic lupus erythematosus) Home Medications ?Medication ?Instructions ?Recorded ?Last Taken ?Type hydroxychloroquine 200 mg tablet 200 mg PO DAILY 04/30/13 12/03/17 History benztropine 0.5 mg tablet 0.5 mg PO BID 12/03/17 12/03/17 History cevimeline 30 mg capsule 30 mg PO TID 12/03/17 12/03/17 History clonazepam 0.5 mg tablet 0.5 mg PO BID 12/03/17 12/03/17 History docusate sodium 100 mg capsule 100 mg PO BID 12/03/17 12/03/17 History (Stool Softener) fluoxetine 40 mg capsule 40 mg PO DAILY 12/03/17 12/03/17 History folic acid 1 mg tablet 1 mg PO DAILY 12/03/17 12/03/17 History haloperidol 5 mg tablet 5 mg PO QHS 12/03/17 12/02/17 History lurasidone 60 mg tablet (Latuda) 60 mg PO BREAKFAST 12/03/17 12/02/17 History methotrexate sodium 2.5 mg tablet 15 mg PO QWEEK 12/03/17 11/28/17 History pantoprazole 40 mg tablet,delayed 40 mg PO DAILY 12/03/17 12/03/17 History release pravastatin 10 mg tablet 10 mg PO QHS CHOLESTEROL 12/03/17 12/02/17 History calcium 600 mg (as 1 tab PO BID 05/16/20 Unknown History carbonate)-vitamin D3 10 mcg (400 unit) tablet cyanocobalamin (vitamin B-12) 1,000 mcg PO DAILY 05/16/20 Unknown History 1,000 mcg capsule ergocalciferol (vitamin D2) 1,250 50,000 unit PO QWEEK 05/16/20 Unknown History mcg (50,000 unit) capsule levofloxacin 500 mg tablet 500 mg PO DAILY #6 tabs 05/24/21 Unknown Rx cephalexin 500 mg capsule 500 mg PO Q6 #28 CAPSULES 07/31/21 Unknown Rx nirmatrelvir 300 mg (150 mg See Rx Instructions PO .COMPLEX 5 11/30/21 Unknown Rx x2)-ritonavir 100 mg tablet,dose days #10 tabs pack (Paxlovid) doxycycline monohydrate 100 mg 100 mg PO BID #14 CAPSULES 05/16/24 Unknown Rx capsule Allergy/AdvReac Type Severity Reaction Status Date / Time erythromycin base Allergy Anaphylaxis Verified 05/24/24 03:43 (Erythromycin Base) nitrofurantoin Allergy Anaphylaxis Verified 05/24/24 03:43 macrocrystalline (From Macrodantin) Penicillins Allergy Anaphylaxis Verified 05/24/24 03:43 codeine AdvReac Unknown Verified 05/24/24 03:43 metronidazole (From Flagyl) AdvReac Other Verified 05/24/24 03:43 Metronidazole HCl (From AdvReac Other Verified 05/24/24 03:43 Flagyl) morphine AdvReac Unknown Verified 05/24/24 03:43 Sulfa (Sulfonamide AdvReac Unknown Verified 05/24/24 03:43 Antibiotics) Surgical History Hx of laparoscopy Hx of cataract surgery Social History Smoking Status: Former smoker ROS ROS ED Constitutional Constitutional ED: Denies chills or fever(s) Eyes Eyes: Denies change in vision or diplopia ENT ENT ED: Denies rhinorrhea or sore throat Cardiovascular Cardiovascular: Reports as per HPI and chest pain; Denies leg edema, orthopnea, palpitations or syncope Respiratory/Chest Respiratory/Chest: Reports chest tightness and cough; Denies dyspnea or orthopnea Gastrointestinal Gastrointestinal: Denies abdominal pain, diarrhea, nausea or vomiting Genitourinary Genitourinary ED: Denies dysuria or hematuria Musculoskeletal Musculoskeletal: Denies back pain or neck pain Integumentary Reports rash; Denies abscess Neurologic Neurologic: Denies headache(s), paresthesias or weakness EXAM Physical Exam Const Vital Signs: 05/24/24 03:43 05/24/24 03:47 05/24/24 04:02 Temperature 98.0 F Temperature Source Oral Pulse Rate 77 Respiratory Rate 18 Respiratory Effort Normal Non-Labored Respiratory Pattern Normal Blood Pressure 139/76 H Blood Pressure Mean 97 Pulse Ox 98 97 Oxygen Delivery Method Room Air Room Air 05/24/24 06:00 Temperature Temperature Source Pulse Rate 71 Respiratory Rate 18 Respiratory Effort Respiratory Pattern Blood Pressure 133/34 H Blood Pressure Mean 67 Pulse Ox 100 Oxygen Delivery Method Room Air Positive well nourished, well developed and obese General Appearance ED: well developed and NAD Nutritional Appearance: obese HEENT Reports moist mucous membranes normocephalic and atraumatic Eyes PERRL and EOMs intact bilaterally Neck full ROM and supple Chest Wall inspection of chest normal and palpation of chest normal Resp normal respiratory effort and clear to auscultation bilaterally Effort and Inspection: able to speak in complete sentences Cardio regular rate, regular rhythm and no murmurs Rate: Negative for bradycardia or tachycardic Peripheral Pulses: pulses 2+ throughout GI non-tender and non-distended Auscultation: normoactive bowel sounds Palpation: soft Back/Spine no CVA tenderness General Back: other FROM Extremity normal to inspection General Extremety ED: Negative for edema, pulses abnormal or tenderness General Extremity: Negative for edema or pulses abnormal Neuro oriented x3, CN's II-XII intact bilaterally and no sensory deficits noted Neuro Narrative: Normal speech no aphasia or dysarthria. Initially alert and oriented and p [place] detailed history, but then as per HPI, states that she is having trouble cognitively but without aphasia or dysarthria or any focal neurologic deficit or lethargy. Sensorium / Orientation: awake and alert Motor Exam: strength 5/5 throughout Psych Mood & Affect: anxious Skin no wounds Skin Narrative: Couple patches on her lower extremities of scaly erythematous nontender rash consistent with atopic dermatitis. No other rashes or signs of cellulitis. No petechia or purpura. MDM MDM MDM Narrative Medical decision making narrative: Here in the emergency department her blood pressure with the multiple rechecks is in the 130-140s systolic range. Is possible that she was transiently high aware that her cuff is missed reading, she does have some degree of fatty tissue hanging from parts of her arm which may or may not be contributing to false readings. It is also possible that she had transient high pressures related to beta agonist breathing treatments. With regards to her chest tightness the differential certainly includes pulmonary etiologies such as her pulmonary fibrosis, infection, inflammation, as well as cardiac etiologies which she does not have a known history of. She was worked up for dangerous causes including pneumonia with a chest x-ray. Her EKG appears completely normal. In all honesty, I do not think her sudden disorientation is organic given that she told us all of these other details just prior to this. It is noted in her history that she has schizophrenia and is on multiple psychotropics which may be related. Her vital signs are normal including the blood pressure. Also consistent with this, the patient later states that she is concerned her bladder sling mesh has been infected for the last couple of years because when she wakes up in the mornings, she feels like she stinks. I reassured her. Her two-view chest x-ray on my interpretation appears to be consistent with pulmonary fibrosis according to the patient's described a prior diagnosis; the radiologist interprets as patchy abnormalities similar to before. She has no leukocytosis, hypoxemia, or tachycardia, states her symptoms have been getting much better, and has been taking doxycycline which she is still taking. Therefore, my suspicion is that these infiltrates are probably related to fibrosis. I discussed that with the patient, she states she has an appointment with her copy reader Dr. Izquierdo coming up on the which is about 1 week away. Outpatient follow-up is advised and continue to do her breathing treatments as needed. Throughout her stay here, her blood pressures have been stable, mostly in the 120-130s/70's. She had 2 sequential troponin measurements that are both normal. Reassured and stable for discharge and follow-up. Lab Data Attestation: I reviewed the patient's lab results. Labs: Laboratory Results - last 24 hr 05/24/24 05/24/24 04:00 06:12 WBC 9.4 RBC 4.19 L Hgb 12.1 Hct 36.9 L MCV 88.1 MCH 28.9 MCHC 32.8 RDW Std Deviation 44.8 H RDW Coeff of Jayde 13.9 Plt Count 252 MPV 10.0 Immature Gran % (Auto) 0.300 Neut % (Auto) 58.8 Lymph % (Auto) 25.6 Howard % (Auto) 8.3 Eos % (Auto) 6.1 H Baso % (Auto) 0.9 Absolute Neuts (auto) 5.5 Absolute Lymphs (auto) 2.40 Nucleated RBC % 0 Sodium 140 Potassium 3.9 Chloride 110 H Carbon Dioxide 24.0 Anion Gap 6 BUN 12 Creatinine 0.58 Estim Creat Clear Calc 115.03 Est GFR (MDRD) Af Amer 135 Est GFR (MDRD) Non-Af 112 BUN/Creatinine Ratio 20.6 H Glucose 92 Calcium 8.6 Troponin I High Sens 5 5 Radiography Diagnostic Testing: Clinical Impression(s) from Imaging Studies Chest X-Ray 05/24/24 04:10 IMPRESSION: Patchy opacities in the mid and lower lungs bilaterally similar to the prior exam. Consider CT for further evaluation. Electronically Signed: Ortiz Rhoades MD at 6:04 EST , Rhythm Strip Rhythm Strip: Sinus Rhythm Rate: 75 Ectopy: None EKG Initial EKG: Attestation: I personally reviewed and interpreted this EKG as follows: Interpretation: Sinus Rhythm and No Acute Injury Pattern Comments: Nml axis & intervals; nml EKG Discharge Plan Triage Chief Complaint: Anxiety ED Provider: Neo Veliz Dx/Rx/DC Orders Clinical Impression: Chest tightness, Pulmonary fibrosis Instructions: ED Chest Pain, Noncardiac Prescriptions: No Action hydroxychloroquine 200 MG tablet 200 mg PO DAILY Latuda 60 MG tablet 60 mg PO BREAKFAST benztropine 0.5 MG tablet 0.5 mg PO BID clonazepam 0.5 MG tablet 0.5 mg PO BID Patient Comments: pravastatin 10 MG tablet 10 mg PO QHS Patient Comments: methotrexate sodium 2.5 MG tablet 15 mg PO QWEEK Patient Comments: pantoprazole 40 MG tablet 40 mg PO DAILY Patient Comments: cevimeline 30 MG capsule 30 mg PO TID Patient Comments: docusate sodium [Stool Softener] 100 MG capsule 100 mg PO BID fluoxetine 40 MG capsule 40 mg PO DAILY Patient Comments: haloperidol 5 MG tablet 5 mg PO QHS Patient Comments: folic acid 1 MG tablet 1 mg PO DAILY ergocalciferol (vitamin D2) 50,000 UNIT capsule 50,000 unit PO QWEEK calcium carbonate-vitamin D3 1 EACH tablet 1 tab PO BID cyanocobalamin (vitamin B-12) 1,000 MCG capsule 1,000 mcg PO DAILY levofloxacin [levofloxacin] 500 MG tablet 500 mg PO DAILY Qty: 6 0RF cephalexin [cephalexin] 500 MG capsule 500 mg PO Q6 Qty: 28 0RF Paxlovid 300 mg (150 mg x 2)-100 mg tablets,dose pack See Rx Instructions .ROUTE .COMPLEX 5 Days Qty: 10 0RF Rx Instructions: take TWO 150 mg tablets of nirmatrelvir with ONE 100 mg tablet of ritonavir twice daily for 5 days doxycycline monohydrate 100 mg capsule 100 mg PO BID Qty: 14 0RF Primary Care Provider: Ethan Galvin Referrals: Carolina Izquierdo MD [Non-Staff] - Keep Allie appointment Ethan Galvin MD [Primary Care Provider] - Print Language: Montenegrin Disposition Disposition: Home, Self Care
[2024-05-24 04:02] VITALS: O2SAT 97
[2024-05-24 04:06] LABS: Absolute Neutrophil Count 5.5 X10^3/uL (2.0-7.7); Basophil# 0.08 X10^3/uL; Basophil% 0.9 % (0-1); Eosinophil# 0.57 X10^3/uL; Eosinophils% 6.1 % (0-5); Hematocrit 36.9 % (37-47); Hemoglobin 12.1 g/dL (12.0-15.0); Lymphocyte % 25.6 % (19-41); Mean Corp Hgb Conc 32.8 g/dL (32-36); Mean Corpuscular Hgb 28.9 pg (27.0-32.0); Mean Corpuscular Volume 88.1 fL (81-99); Monocyte# 0.78 X10^3/uL; Monocyte% 8.3 % (0-10); NRBC Flagged by Analyzer 0 % (0-5); Neutrophil # 5.52 X10^3/uL (2.7-7.7); Neutrophil % 58.8 % (47-70); Platelet Count 252 K/mm3 (150-450); RBC Distribution Width CV 13.9 % (11.6-14.6); RBC Distribution Width SD 44.8 fl (35.1-43.9); Red Blood Count 4.19 M/mm3 (4.2-5.4); White Blood Count 9.4 K/mm3 (4.4-11.0)
--- NOTE | 2024-05-24 04:10 | RAD_ITS ---
EXAM: XR CHEST, 2 VIEWS CLINICAL INDICATION: chest tightness, recent pneumonia TECHNIQUE: Frontal and lateral views of the chest. COMPARISON: 05/16/2024. FINDINGS: LUNGS AND PLEURAL SPACES: Patchy opacities in the mid and lower lungs bilaterally similar to the prior exam. No pneumothorax. No effusion. HEART: Unremarkable. Cardiac silhouette not enlarged. MEDIASTINUM: Central airways and mediastinal contour are unremarkable. BONES/JOINTS: Unremarkable. No acute fracture. SOFT TISSUES: Unremarkable. RAD/Chest PA and Lateral IMPRESSION: Patchy opacities in the mid and lower lungs bilaterally similar to the prior exam. Consider CT for further evaluation. Electronically Signed: Ortiz Rhoades MD at 6:04 EST ,
[2024-05-24 04:23] LABS: Anion Gap 6 (5-15); BUN 12 mg/dL (7-18); BUN/Creat Ratio 20.6 RATIO (10-20); Calcium,Total 8.6 mg/dL (8.5-10.1); Chloride 110 mmol/L (98-107); Creatinine, Serum 0.58 mg/dL (0.55-1.02); EST Glomerular Filtration Rate 112 mL/min (>60); Est Glom Filt Rate - Afr Amer 135 mL/min (>60); Estimated Creatinine Clearance 115.03 ml/min; Glucose 92 mg/dL (74-106); Potassium 3.9 mmol/L (3.5-5.1); Sodium Level 140 mmol/L (136-145); Troponin-I HS (w/2H Reflex) 5 pg/mL (3.0-54.0)
[2024-05-24 06:00] VITALS: BP 133/34; PULSE 71; RESP 18; O2SAT 100
[2024-05-24 06:03] LABS: Reflex Troponin-HS? (from REC) Y
[2024-05-24 06:55] LABS: Troponin-I HS 5 pg/mL (3.0-54.0)
[2024-05-24 07:56] VITALS: BP 133/34; PULSE 71; RESP 16; TEMP 36.7; O2SAT 100
== END 2024-05-24 08:00 | disposition home or self-care (01) ==
PROVIDERS: Emergency Provider Emergency Medicine; PCP Internal Medicine; Visit Provider Emergency Medicine
DX: R07.89 Other chest pain (principal); J84.10 Pulmonary fibrosis, unspecified; E66.9 Obesity, unspecified; Z87.891 Personal history of nicotine dependence
CPT/HCPCS: 71046; 80048; 84484; 85025; 93005; 99285

== ENCOUNTER 2024-08-31 09:05 | Emergency (ER) | payer MEDICARE, MEDICAID, SELFPAY ==
[2024-08-31 09:05] VITALS: BP 104/52; PULSE 71; RESP 16; TEMP 36.2; O2SAT 99; BMI 41.0
--- NOTE | 2024-08-31 09:24 | EDS_ITS ---
HPI History of Present Illness Chief Complaint: Headache Informant: patient Narrative Narrative: Presents by EMS from home. Patient history of schizophrenia. She reports been having nontraumatic head pressure for the last week. She was at urgent care a week ago with no testing performed on and off symptoms. She had nausea last week. No vomiting. Denies photophobia or phonophobia. She decided to call her primary care office today she had chronic tingling bilateral hands and feet she is not diabetic. There is discussion she is concerned of a stroke therefore she was told to call EMS. She has no speech changes no hemiparesis no stroke history no anticoagulants. She lives alone does not walk with any assistance. No recent vomiting or diarrhea states there has been some urine urgency mild burning. She denies suicidal or homicidal ideations. Prior similar symptoms: No PFSH PFSH Medical History Glaucoma Major depressive disorder, recurrent severe without psychotic features Generalized anxiety disorder Schizophrenia Hyperlipidemia Obstructive sleep apnea Lupus (systemic lupus erythematosus) Home Medications ?Medication ?Instructions ?Recorded ?Last Taken ?Type hydroxychloroquine 200 mg tablet 200 mg PO DAILY 04/3012/03/17 History benztropine 0.5 mg tablet 0.5 mg PO BID 12/03/1712/03 History cevimeline 30 mg capsule 30 mg PO TID 12/03/17 History clonazepam 0.5 mg tablet 0.5 mg PO BID 12/03/1712/03 History docusate sodium 100 mg capsule 100 mg PO BID 12/03/17 12/03/17 History (Stool Softener) fluoxetine 40 mg capsule 40 mg PO DAILY 12/03/1706/21 History folic acid 1 mg tablet 1 mg PO DAILY 12/03/1712/03 History haloperidol 5 mg tablet 5 mg PO QHS 12/03/17 8 History lurasidone 60 mg tablet (Latuda) 60 mg PO BREAKFAST 12/02/17 History methotrexate sodium 2.5 mg tablet 15 mg PO QWEEK 12/0311/28/17 History pantoprazole 40 mg tablet,delayed 40 mg PO DAILY 12/0312/03/17 History release pravastatin 10 mg tablet 10 mg PO QHS CHOLESTEROL 06/2112/02/17 History calcium 600 mg (as 1 tab PO BID 05/16/20 Unknow n History carbonate)-vitamin D3 10 mcg (400 unit) tablet cyanocobalamin (vitamin B-12) 1,000 mcg PO DAILY 05/16 Unknown History 1,000 mcg capsule ergocalciferol (vitamin D2) 1,250 50,000 unit PO QWEEK 05/16/20 Unknown History mcg (50,000 unit) capsule levofloxacin 500 mg tablet 500 mg PO DAILY #6 tabs Unknown Rx doxycycline monohydrate 100 mg 100 mg PO BID #14 CAPSU LES 05/16/24 Unknown Rx capsule Allergy/AdvReac Type Severity Reaction Status Date / Time erythromycin base Allergy Anaphylaxis Verified 08/26/24 13:42 (Erythromycin Base) nitrofurantoin Allergy Anaphylaxis Verified 08/26/24 13:42 macrocrystalline (From Macrodantin) Penicillins Allergy Anaphylaxis Verified 08/26/24 13:42 codeine AdvReac Unknown Verified 08/26/24 13:42 metronidazole (From Flagyl) AdvReac Other Verified 08/26/24 13:42 Metronidazole HCl (From AdvReac Other Verified 08/26/24 13:42 Flagyl) morphine AdvReac Unknown Verified 08/26/24 13:42 Sulfa (Sulfonamide AdvReac Unknown Verified 08/26/24 13:42 Antibiotics) Surgical History Hx of laparoscopy Hx of cataract surgery Social History Smoking Status: Former smoker ROS ROS ED Constitutional Constitutional ED: Denies chills, fever(s) or sweats ENT ENT ED: Denies sore throat Cardiovascular Cardiovascular: Denies chest pain, leg edema, palpitations or racing heartbeat Respiratory/Chest Respiratory/Chest: Denies cough, dyspnea or dyspnea on exertion Gastrointestinal Gastrointestinal: Denies abdominal pain, diarrhea, nausea or vomiting Genitourinary Genitourinary ED: Denies dysuria, hematuria or urinary frequency Musculoskeletal Musculoskeletal: Denies back pain, extremity pain or neck pain Integumentary Denies rash or wounds Neurologic Neurologic: Reports headache(s) and paresthesias; Denies weakness EXAM Physical Exam Const Vital Signs: 08/31/24 09:05 Temperature 97.1 F L Temperature Source Axillary Pulse Rate 71 Respiratory Rate 16 Blood Pressure 104/52 L Blood Pressure Mean 69 Pulse Ox 99 Oxygen Delivery Method Room Air Positive well nourished and well developed General Appearance ED: well developed and NAD HEENT Reports moist mucous membranes normocephalic and atraumatic Eyes General Eye ED: Yes normal appearance of both eyes Neck full ROM Chest Wall Chest: Negative for tenderness Resp normal respiratory effort and normal air movement Effort and Inspection: symmetric chest movement; Negative for respiratory distress Cardio regular rate, regular rhythm and no murmurs Peripheral Pulses: pulses 2+ throughout GI normal to inspection, nondistended, normoactive bowel sounds and non-tender Palpation: Negative for guarding or rebound tenderness present Extremity normal to inspection General Extremety ED: Negative for edema or tenderness General Extremity: Negative for edema Neuro oriented x3, CN's II-XII intact bilaterally and no sensory deficits noted Neuro Narrative: NIH of 0. Upper and lower cerebellar testing normal. Sensorium / Orientation: awake and alert Psych Psych Narrative: No suicidal or homicidal ideations. Skin no rashes or lesions noted and no wounds MDM MDM MDM Narrative Medical decision making narrative: Interventions / MDM: Differential diagnosis: Diagnosis considered but do not suspect: N/A My EKG interpretation: N/A Imaging independently reviewed and interpreted by myself: N/A External documents reviewed: N/A Test considered but not ordered:N/A ED course: Patient no focal deficit on exam NIH of 0. Head pressure bilaterally bilateral hand and feet tingling has been chronic. Do not feel these are stroke symptoms. However new headache symptoms for the last week will obtain CT scan. Will check basic labs and urine with her symptoms. Will reevaluate. Re-evaluation: stable Disposition discussed with patient/family/significant other: Case discussed with consulting clinician: N/A This note was generated with Onfan dictation software. It may contain incorrect words, spelling, and punctuation that were not noted in checking the note before signing. Discharge Plan Triage Chief Complaint: Headache ED Provider: Bernabe Garcia Dx/Rx/DC Orders Prescriptions: No Action hydroxychloroquine 200 MG tablet 200 mg PO DAILY Latuda 60 MG tablet 60 mg PO BREAKFAST benztropine 0.5 MG tablet 0.5 mg PO BID clonazepam 0.5 MG tablet 0.5 mg PO BID Patient Comments: pravastatin 10 MG tablet 10 mg PO QHS Patient Comments: methotrexate sodium 2.5 MG tablet 15 mg PO QWEEK Patient Comments: pantoprazole 40 MG tablet 40 mg PO DAILY Patient Comments: cevimeline 30 MG capsule 30 mg PO TID Patient Comments: docusate sodium [Stool Softener] 100 MG capsule 100 mg PO BID fluoxetine 40 MG capsule 40 mg PO DAILY Patient Comments: haloperidol 5 MG tablet 5 mg PO QHS Patient Comments: folic acid 1 MG tablet 1 mg PO DAILY ergocalciferol (vitamin D2) 50,000 UNIT capsule 50,000 unit PO QWEEK calcium carbonate-vitamin D3 1 EACH tablet 1 tab PO BID cyanocobalamin (vitamin B-12) 1,000 MCG capsule 1,000 mcg PO DAILY levofloxacin [levofloxacin] 500 MG tablet 500 mg PO DAILY Qty: 6 0RF doxycycline monohydrate 100 mg capsule 100 mg PO BID Qty: 14 0RF Primary Care Provider: Ethan Galvin Referrals: Ethan Galvin MD [Primary Care Provider] - Print Language: Tajik
--- NOTE | 2024-08-31 09:24 | EX.ED.VIS.HA ---
HPI History of Present Illness Chief Complaint: Headache Informant: patient Narrative Narrative: Presents by EMS from home. Patient history of schizophrenia. She reports been having nontraumatic head pressure for the last week. She was at urgent care a week ago with no testing performed on and off symptoms. She had nausea last week. No vomiting. Denies photophobia or phonophobia. She decided to call her primary care office today she had chronic tingling bilateral hands and feet she is not diabetic. There is discussion she is concerned of a stroke therefore she was told to call EMS. She has no speech changes no hemiparesis no stroke history no anticoagulants. She lives alone does not walk with any assistance. No recent vomiting or diarrhea states there has been some urine urgency mild burning. She denies suicidal or homicidal ideations. Prior similar symptoms: No PFSH PFS Medical History Glaucoma Major depressive disorder, recurrent severe without psychotic features Generalized anxiety disorder Schizophrenia Hyperlipidemia Obstructive sleep apnea Lupus (systemic lupus erythematosus) Home Medications ?Medication ?Instructions ?Recorded ?Last Taken ?Type hydroxychloroquine 200 mg tablet 200 mg PO DAILY 04/30/13 08/31/24 History pantoprazole 40 mg tablet,delayed 40 mg PO DAILY 12/03/17 08/31/24 History release cetirizine 10 mg tablet 10 mg PO DAILY 08/31/24 08/31/24 History coenzyme Q10 100 mg capsule (Co 100 mg PO DAILY 08/31/24 08/31/24 History Q-10) glucosamine sulfate 500 mg tablet 500 mg PO DAILY 08/31/24 08/31/24 History (Glucosamine) magnesium glycinate 100 mg (as 100 mg PO QHS 08/31/24 08/30/24 History glycinate) tablet (Mag Glycinate) omega 9-acj-abt-fish oil 1,200 mg 1 cap PO DAILY 08/31/24 08/31/24 History (144 mg-216 mg) capsule (Fish Oil) rosuvastatin 20 mg tablet 20 mg PO QHS 08/31/24 08/31/24 History valbenazine 40 mg capsule 40 mg PO DAILY 08/31/24 08/31/24 History (Ingrezza) Allergy/AdvReac Type Severity Reaction Status Date / Time erythromycin base Allergy Anaphylaxis Verified 08/26/24 13:42 (Erythromycin Base) nitrofurantoin Allergy Anaphylaxis Verified 08/26/24 13:42 macrocrystalline (From Macrodantin) Penicillins Allergy Anaphylaxis Verified 08/26/24 13:42 codeine AdvReac Unknown Verified 08/26/24 13:42 metronidazole (From Flagyl) AdvReac Other Verified 08/26/24 13:42 Metronidazole HCl (From AdvReac Other Verified 08/26/24 13:42 Flagyl) morphine AdvReac Unknown Verified 08/26/24 13:42 Sulfa (Sulfonamide AdvReac Unknown Verified 08/26/24 13:42 Antibiotics) Surgical History Hx of laparoscopy Hx of cataract surgery Social History Smoking Status: Former smoker ROS ROS ED Constitutional Constitutional ED: Denies chills, fever(s) or sweats ENT ENT ED: Denies sore throat Cardiovascular Cardiovascular: Denies chest pain, leg edema, palpitations or racing heartbeat Respiratory/Chest Respiratory/Chest: Denies cough, dyspnea or dyspnea on exertion Gastrointestinal Gastrointestinal: Denies abdominal pain, diarrhea, nausea or vomiting Genitourinary Genitourinary ED: Denies dysuria, hematuria or urinary frequency Musculoskeletal Musculoskeletal: Denies back pain, extremity pain or neck pain Integumentary Denies rash or wounds Neurologic Neurologic: Reports headache(s) and paresthesias; Denies weakness EXAM Physical Exam Const Vital Signs: 08/31/24 09:05 08/31/24 11:13 Temperature 97.1 F L 97.8 F Temperature Source Axillary Pulse Rate 71 67 Respiratory Rate 16 15 Blood Pressure 104/52 L 105/83 H Blood Pressure Mean 69 90 Pulse Ox 99 97 Oxygen Delivery Method Room Air Positive well nourished and well developed General Appearance ED: well developed and NAD HEENT Reports moist mucous membranes normocephalic and atraumatic Eyes General Eye ED: Yes normal appearance of both eyes Neck full ROM Chest Wall Chest: Negative for tenderness Resp normal respiratory effort and normal air movement Effort and Inspection: symmetric chest movement; Negative for respiratory distress Cardio regular rate, regular rhythm and no murmurs Peripheral Pulses: pulses 2+ throughout GI normal to inspection, nondistended, normoactive bowel sounds and non-tender Palpation: Negative for guarding or rebound tenderness present Extremity normal to inspection General Extremety ED: Negative for edema or tenderness General Extremity: Negative for edema Neuro oriented x3, CN's II-XII intact bilaterally and no sensory deficits noted Neuro Narrative: NIH of 0. Upper and lower cerebellar testing normal. Sensorium / Orientation: awake and alert Psych Psych Narrative: No suicidal or homicidal ideations. Skin no rashes or lesions noted and no wounds MDM MDM MDM Narrative Medical decision making narrative: Interventions / MDM: Differential diagnosis: Nonspecific headache, history of schizophrenia Diagnosis considered but do not suspect: Intracranial hemorrhage/mass however CT negative. My EKG interpretation: N/A Imaging independently reviewed and interpreted by myself: N/A External documents reviewed: N/A Test considered but not ordered:N/A ED course: Patient no focal deficit on exam NIH of 0. Head pressure bilaterally bilateral hand and feet tingling has been chronic. Do not feel these are stroke symptoms. However new headache symptoms for the last week will obtain CT scan. Will check basic labs and urine with her symptoms. Will reevaluate. 1035: CT brain negative. Labs and urine negative. Patient has been using intermittent ibuprofen at home did not want any additional medications at this time. She does live alone, discussed any concerns at home for the patient with her medical history of schizophrenia. She states she is looking for a new place to stay. Combination of needing to move and wanting to move. She has no suicidal homicidal ideations. I spoke with licensed midwife in the ED, she will discussed with patient for any needs or resources. 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 It may contain incorrect words, spelling, and punctuation that were not noted in checking the note before signing. Lab Data Attestation: I reviewed the patient's lab results. Labs: Laboratory Results - last 24 hr 08/31/24 08/31/24 09:14 09:35 WBC 9.7 RBC 4.65 Hgb 13.7 Hct 40.7 MCV 87.5 MCH 29.5 MCHC 33.7 RDW Std Deviation 41.7 RDW Coeff of Jayde 13.2 Plt Count 285 MPV 10.2 Immature Gran % (Auto) 0.400 Neut % (Auto) 67.9 Lymph % (Auto) 17.9 L [place] % (Auto) 6.6 Eos % (Auto) 6.2 H Baso % (Auto) 1.0 Absolute Neuts (auto) 6.6 Absolute Lymphs (auto) 1.74 Nucleated RBC % 0 Sodium 138 Potassium 3.9 Chloride 101 Carbon Dioxide 25.0 Anion Gap 12 BUN 13 Creatinine 0.76 Estim Creat Clear Calc 85.40 Est GFR (MDRD) Non-Af 90 BUN/Creatinine Ratio 17.5 Glucose 95 Calcium 9.6 Urine Color Straw Urine Clarity Clear Urine pH 6.5 Ur Specific [place] 1.010 Urine Protein TNP Urine Glucose (UA) Normal Urine Ketones Negative Urine Occult Blood Negative Urine Nitrite Negative Urine Bilirubin Negative Urine Urobilinogen Normal Ur Leukocyte Esterase Negative Urine RBC 0 SEEN Urine WBC 0 SEEN Ur Squamous Epith Cells 0-5 SEEN Urine Bacteria 0 SEEN Urine Mucus 0 SEEN U Random Total Protein < 6.0 Radiography Diagnostic Testing: Clinical Impression(s) from Imaging Studies Brain CT 08/31/24 09:40 IMPRESSION: No acute intracranial pathology. [facility] Triage Chief Complaint: Headache ED Provider: Bernabe Garcia Dx/Rx/DC Orders Clinical Impression: Schizophrenia, Headache Instructions: ED Headache Unspecified Prescriptions: No Action hydroxychloroquine 200 MG tablet 200 mg PO DAILY pantoprazole 40 MG tablet 40 mg PO DAILY Patient Comments: cetirizine 10 mg tablet 10 mg PO DAILY rosuvastatin 20 mg tablet 20 mg PO QHS Ingrezza 40 mg capsule 40 mg PO DAILY omega 2-jbi-szn-fish oil [Fish Oil] 1,200 (144-216) mg capsule 1 cap PO DAILY glucosamine sulfate [Glucosamine] 500 mg tablet 500 mg PO DAILY Rx Instructions: administer with a meal coenzyme Q10 [Co Q-10] 100 mg capsule 100 mg PO DAILY Mag Glycinate 100 mg tablet 100 mg PO QHS Primary Care Provider: Ethan Galvin Referrals: Ethan Galvin MD [Primary Care Provider] - 1 Week Activity Restrictions/Additional Instructions: Your head CT negative. Labs and urine negative. Use Tylenol or Motrin as needed for your headache. You were seen by social work in the ED. Follow-up with your doctor. Print Language: Ukrainian Disposition Disposition: Home, Self Care Discharge Date/Time: 08/31/24 11:19
--- NOTE | 2024-08-31 09:40 | CT_ITS ---
EXAM: NONCONTRAST CT SCAN OF THE HEAD CLINICAL HISTORY: AMS COMPARISON: May 03, 2024 TECHNIQUE: Serial axial series through the head were obtained without contrast. 2-D coronal and sagittal reformats were then obtained. Radiation dose reduction protocol was observed. DLP: 829.85 mGy-cm FINDINGS: Brain: There is no acute large territorial infarct, intracranial hemorrhage, midline shift or mass effect. The sella and pineal gland regions appear unremarkable. There is no evidence of cerebellar tonsillar herniation. Ventricles: There is no acute hydrocephalus. Basilar cisterns are patent. Paranasal sinuses: Well-aerated Mastoid air cells: Well-aerated. Calvarium: The bony calvarium is intact. Orbits: The bilateral globes are symmetric, without retrobulbar compressive mass lesion or hemorrhage. CT/Brain/Head without Contrast IMPRESSION: No acute intracranial pathology. Reading Location: [facility]
[2024-08-31 09:41] LABS: Absolute Lymphocyte Count 1.74 X10^3/uL (0.83-4.51); Absolute Neutrophil Count 6.6 X10^3/uL (2.0-7.7); Eosinophils% 6.2 % (0-5); Hematocrit 40.7 % (37-47); Hemoglobin 13.7 g/dL (12.0-15.0); Lymphocyte # 1.74 X10^3/ul (0.83-4.51); Lymphocyte % 17.9 % (19-41); Mean Corp Hgb Conc 33.7 g/dL (32-36); Mean Corpuscular Hgb 29.5 pg (27.0-32.0); Mean Corpuscular Volume 87.5 fL (81-99); Mean Platelet Vol. 10.2 fl (6.2-12.0); Monocyte# 0.64 X10^3/uL; Monocyte% 6.6 % (0-10); NRBC Flagged by Analyzer 0 % (0-5); Neutrophil # 6.62 X10^3/uL (2.7-7.7); Neutrophil % 67.9 % (47-70); Platelet Count 285 K/mm3 (150-450); RBC Distribution Width CV 13.2 % (11.6-14.6); RBC Distribution Width SD 41.7 fl (35.1-43.9); Red Blood Count 4.65 M/mm3 (4.2-5.4); White Blood Count 9.7 K/mm3 (4.4-11.0)
[2024-08-31 09:43] LABS: Bacteria 0 SEEN /hpf (None Seen); Mucous, Urine 0 SEEN /hpf (<or=2+); Red Blood Cells-Urine 0 SEEN /hpf (0-5); White Blood Cells 0 SEEN /hpf (0-5)
[2024-08-31 09:47] LABS: Color, Urine Straw (Yellow); Glucose, Dipstick Normal (Normal); Ketone-Dipstick Negative (Negative); Leukocyte Esterase-Dipstick Negative /ul (Negative); Nitrite-Dipstick Negative (Negative); Occult Blood-Urine Negative /ul (Negative); Urine Bilirubin Dipstick Negative (Negative); Urine Clarity Clear (Clear); Urine Urobilinogen Normal (Normal); Urine pH 6.5 (5.0 - 8.0)
[2024-08-31 09:53] LABS: Squamous Epithelial Cells - UA 0-5 SEEN /hpf (5-10)
[2024-08-31 10:05] LABS: Anion Gap 12 (5-15); BUN 13 mg/dL (4-19); BUN/Creat Ratio 17.5 RATIO (10-20); Calcium,Total 9.6 mg/dL (7.6-11.0); Chloride 101 mmol/L (98-108); Creatinine, Serum 0.76 mg/dL (0.70-1.20); EST Glomerular Filtration Rate 90 (>60); Glucose 95 mg/dL (70-99); Potassium 3.9 mmol/L (3.3-5.1); Sodium Level 138 mmol/L (133-145)
[2024-08-31 10:27] LABS: Protein, Urine (Random) < 6.0 mg/dL (0.0-12.0)
[2024-08-31 11:13] VITALS: BP 105/83; PULSE 67; RESP 15; TEMP 36.6; O2SAT 97
--- NOTE | 2024-08-31 17:51 | CM.ED ---
Social Work SW met with patient, introduced self and role with [facility]. Patient told SW that she felt she needed different housing options, that she felt her living situation was not good for her mental or physical health. Patient states she recognizes that she did see the apartment before she signed the lease, but underestimated the amount of maintenance that is needed and that she often worried about her neighbors and who was walking near by. Patient also reported that she was living check to check and was trying to find ways to cut costs. Patient stated that she had a mental health team that she saw regularly and felt comfortable with her treatment and providers. Social work provided patient with [facility] list, food pantry and meal services, [employer] card and transportation resources. APtient thankful. No further needs identified at this time. Fabienne Cruz, HEAD OF [employer]CH[employer]YING, [employer] CHLORITE OPERATOR
== END 2024-08-31 11:19 | disposition home or self-care (01) ==
PROVIDERS: Emergency Provider Emergency Medicine; PCP Internal Medicine; Visit Provider Emergency Medicine
DX: F20.9 Schizophrenia, unspecified (principal); R51.9 Headache, unspecified; E78.5 Hyperlipidemia, unspecified; G47.33 Obstructive sleep apnea (adult) (pediatric); Z79.899 Other long term (current) drug therapy; Z87.891 Personal history of nicotine dependence
CPT/HCPCS: 70450; 80048; 81001; 84156; 85025; 99285; A4216